=== PATIENT | female | born 1960 | race Caucasian/White ===

== ENCOUNTER 2018-10-31 17:16 | Inpatient (IN) ==
[2018-10-31 19:21] LABS: Basophils # 0.1 K/mcL (0.0-0.2); Basophils % 0.5 %; Eosinophils # 0.1 K/mcL (0.0-0.6); Eosinophils % 0.5 %; Hematocrit 43.4 % (35.3-44.9); Hemoglobin 13.7 g/dL (11.5-15.4); Immature Granulocytes % 3.4 % (0-4); Lymphocytes # 1.9 K/mcL (0.6-4.6); Lymphocytes % 11.3 %; Mean Corpuscular HGB Conc 31.6 g/dL (31.6-35.5); Mean Corpuscular Hemoglobin 29.5 pg (28.0-33.3); Mean Corpuscular Volume 93.5 fL (83.0-100.0); Mean Platelet Volume 10.3 fL (9.4-12.4); Monocytes # 1.4 K/mcL (0.0-1.3); Neutrophils # 13.1 K/mcL (1.6-8.9); Platelet Count 373 K/mcL (140-400); Red Blood Count 4.64 M/mcL (3.82-4.97); Red Cell Distribution Width 16.1 % (11.5-14.5); Segmented Neutrophils % 76.3 %; White Blood Count 17.1 K/mcL (4.3-11.1)
[2018-10-31] MEDS ORDERED: 0.9 % Sodium Chloride 1,000 ML IVC ONE (19:37)
[2018-10-31 19:40] LABS: Albumin 3.6 g/dL (3.5-5.7); Bilirubin,Direct 0.3 mg/dL (0.0-0.2); Bilirubin,Indirect 0.5 mg/dL (0.0-1.2); Bilirubin,Total 0.8 mg/dL (0.3-1.0); Globulin 3.5 g/dL (2.4-3.5); Potassium 4.2 mEq/L (3.5-5.1); Total Protein 7.1 g/dL (6.4-8.9)
[2018-10-31 19:42] LABS: Bilirubin,Urine Moderate (Negative); Blood,Urine Negative (Negative); Clarity,Urine Cloudy (Clear); Color,Urine Dark Yellow (Yellow); Glucose,Urine (UA) Normal (Normal); Ketones,Urine Trace mg/dL (Negative); Leukocyte Esterase,Urine Trace (Negative); Nitrite,Urine Negative (Negative); PH,Urine 5.5 pH Units (5.0-8.0); Protein,Urine 30 mg/dL (Neg-Trace); Specific Gravity,Urine 1.023 (1.010-1.025); Urobilinogen,Urine Normal (Normal)
[2018-10-31 19:48] LABS: Bacteria,Urine Few per hpf (None-Few); Hyaline Casts,Urine Few per lpf (None-Few); RBC,Urine 0-3 per hpf (0-3); Squamous Epithelial Cell,Urine Many per lpf (None-Few); WBC,Urine 15-30 per hpf (0-3)
[2018-10-31 20:01] LABS: Yeast,Urine Few per hpf (None Seen)
[2018-10-31] MEDS ORDERED: MetroNIDAZOLE 500 MG/100 ML 500 MG/100 ML BAG IVPB ONE (20:30)
[2018-10-31] MEDS ORDERED: Acetaminophen 325 MG TABLET PO PRN (23:34)
[2018-10-31] MEDS ORDERED: Naloxone 0.4 MG/ML INJ IVP PRN (23:34)
[2018-10-31] MEDS ORDERED: 0.9 % Sodium Chloride 1,000 ML IVC SCH (23:45)
[2018-11-01 00:32] LABS: INR 1.3; Prothrombin Time 14.9 Seconds (9.4-12.1)
[2018-11-01 00:42] LABS: Alanine Aminotransferase 139 Units/L (7-52); Albumin 3.2 g/dL (3.5-5.7); Albumin/Globulin Ratio 1.1 (1.1-2.2); Alkaline Phosphatase 167 Units/L (34-104); Aspartate Amino Transferase 54 Units/L (13-39); BUN/Creatinine Ratio 20 (6-26); Bilirubin,Total 0.7 mg/dL (0.3-1.0); Blood Urea Nitrogen 19 mg/dL (6-20); Carbon Dioxide 20 mEq/L (23-29); Chloride 107 mEq/L (98-107); Chol/HDL Ratio 8.3 (0-4.9); Cholesterol 158 mg/dL (< 200); Glucose 108 mg/dL (70-105); HDL Cholesterol 19 mg/dL (40-59); LDL Cholesterol,Calculated 109 mg/dL (0-99); Magnesium 1.8 mg/dL (1.6-2.6); Osmolality,Calculated 289 (280-300); Phosphorous 2.6 mg/dL (2.7-4.5); Potassium 3.7 mEq/L (3.5-5.1); Sodium 138 mEq/L (136-145); Total Protein 6.2 g/dL (6.4-8.9); Triglycerides 151 mg/dL (< 150); eGFR For African Americans > 60 (> 60); eGFR For Non-African Americans > 60 (> 60)
[2018-11-01 00:45] LABS: Basophils # 0.1 K/mcL (0.0-0.2); Basophils % 0.4 %; Eosinophils # 0.1 K/mcL (0.0-0.6); Eosinophils % 0.7 %; Hematocrit 38.7 % (35.3-44.9); Hemoglobin 12.2 g/dL (11.5-15.4); Immature Granulocytes % 3.4 % (0-4); Lymphocytes # 2.2 K/mcL (0.6-4.6); Lymphocytes % 15.5 %; Mean Corpuscular HGB Conc 31.5 g/dL (31.6-35.5); Mean Corpuscular Hemoglobin 29.8 pg (28.0-33.3); Mean Corpuscular Volume 94.4 fL (83.0-100.0); Mean Platelet Volume 10.2 fL (9.4-12.4); Monocytes % 7.1 %; Neutrophils # 10.2 K/mcL (1.6-8.9); Platelet Count 347 K/mcL (140-400); Segmented Neutrophils % 72.9 %
[2018-11-01 06:40] LABS: Troponin I < 0.03 ng/mL (< 0.04)
[2018-11-01] MEDS: predniSONE 20 MG TABLET PO SCH (08:21)
[2018-11-01] MEDS: MetroNIDAZOLE 500 MG/100 ML 500 MG/100 ML BAG IVPB SCH ×2 (08:29→15:14)
[2018-11-01 13:36] LABS: Hepatitis B Surface Antigen Nonreactive (Nonreactive)
[2018-11-01 14:05] LABS: Hepatitis B Core IgM Nonreactive (Nonreactive); Hepatitis C Virus Antibody Nonreactive (Nonreactive)
[2018-11-01 14:07] LABS: Hepatitis A Antibody IgM Nonreactive (Nonreactive)
[2018-11-01] MEDS ORDERED: SODIUM CHLORIDE/NAHCO3/KCL/PEG 4,000 ML SOLN.RECON PO ONE (21:09)
[2018-11-01] MEDS: Famotidine 20 MG TABLET PO SCH (22:12)
[2018-11-02] MEDS: MetroNIDAZOLE 500 MG/100 ML 500 MG/100 ML BAG IVPB SCH ×3 (00:02→16:31)
[2018-11-02] MEDS ORDERED: Lidocaine -MPF 2% 2 ML VIAL ONE (07:34)
[2018-11-02] MEDS ORDERED: Propofol 500 MG/50 ML INFUS..BTL ONE (07:34)
[2018-11-02] MEDS: predniSONE 20 MG TABLET PO SCH (09:53)
[2018-11-02] MEDS: Famotidine 20 MG TABLET PO SCH (09:53)
[2018-11-02] MEDS ORDERED: Barium Sulfate (Liquid Polibar Plus) 1 BOTTLE ORAL.SUSP RC ONE (11:42)
[2018-11-03] MEDS: MetroNIDAZOLE 500 MG/100 ML 500 MG/100 ML BAG IVPB SCH ×4 (01:20→18:40)
[2018-11-03 05:12] LABS: Basophils % 0.3 %; Eosinophils # 0.1 K/mcL (0.0-0.6); Eosinophils % 0.6 %; Hemoglobin 11.5 g/dL (11.5-15.4); Immature Granulocytes % 2.2 % (0-4); Lymphocytes % 21.1 %; Mean Corpuscular HGB Conc 31.1 g/dL (31.6-35.5); Mean Corpuscular Volume 93.4 fL (83.0-100.0); Mean Platelet Volume 10.3 fL (9.4-12.4); Monocytes # 0.9 K/mcL (0.0-1.3); Monocytes % 9.1 %; Neutrophils # 6.2 K/mcL (1.6-8.9); Platelet Count 284 K/mcL (140-400); Red Blood Count 3.96 M/mcL (3.82-4.97); Red Cell Distribution Width 16.2 % (11.5-14.5); Segmented Neutrophils % 66.7 %; White Blood Count 9.3 K/mcL (4.3-11.1)
[2018-11-03 05:35] LABS: Alanine Aminotransferase 62 Units/L (7-52); Albumin 2.8 g/dL (3.5-5.7); Albumin/Globulin Ratio 0.9 (1.1-2.2); Alkaline Phosphatase 124 Units/L (34-104); Aspartate Amino Transferase 20 Units/L (13-39); BUN/Creatinine Ratio 14 (6-26); Bilirubin,Total 0.4 mg/dL (0.3-1.0); Blood Urea Nitrogen 11 mg/dL (6-20); Calcium 9.1 mg/dL (8.6-10.3); Carbon Dioxide 21 mEq/L (23-29); Chloride 107 mEq/L (98-107); Glucose 95 mg/dL (70-105); Osmolality,Calculated 289 (280-300); Potassium 3.6 mEq/L (3.5-5.1); Sodium 140 mEq/L (136-145); Total Protein 5.8 g/dL (6.4-8.9); eGFR For African Americans > 60 (> 60); eGFR For Non-African Americans > 60 (> 60)
[2018-11-03] MEDS: predniSONE 20 MG TABLET PO SCH (08:45)
[2018-11-03] MEDS: Famotidine 20 MG TABLET PO SCH (08:45)
[2018-11-03] MEDS ORDERED: *HR* Propofol 200 MG/20 ML VIAL IVP ONE (09:16)
[2018-11-03] MEDS ORDERED: *HR* Midazolam HCl 2 MG/2 ML VIAL ONE (09:16)
[2018-11-03] MEDS ORDERED: *HR* FentaNYL (PF) 100 MCG/2 ML VIAL ONE (09:16)
[2018-11-03] MEDS ORDERED: Dexamethasone 4 MG/ML VIAL ONE (09:17)
[2018-11-03] MEDS ORDERED: Lidocaine -MPF 2% 2 ML VIAL ONE (09:17)
[2018-11-03] MEDS ORDERED: Ondansetron 4 MG/2 ML VIAL ONE (09:17)
[2018-11-03] MEDS ORDERED: *HR* Rocuronium Bromide 50 MG/5 ML VIAL ONE (09:17)
[2018-11-03] MEDS ORDERED: Lidocaine HCL 4 ML Topical Solution (Laryng-O-Jet Kit Sterile Pak) TP ONE (09:18)
[2018-11-03] MEDS ORDERED: *HR* Remifentanil 2 MG VIAL IVP ONE (09:24)
[2018-11-03] MEDS ORDERED: CefOXitin 1,000 MG VIAL ONE (09:32)
[2018-11-03] MEDS ORDERED: *HR* OxyCODONE Immed Rel 5 MG TABLET PO PRN (09:42)
[2018-11-03] MEDS ORDERED: Ondansetron 4 MG/2 ML VIAL IVP ONE (09:42)
[2018-11-03] MEDS ORDERED: *HR* Succinylcholine 200 MG/10 ML VIAL IVP ONE (10:06)
[2018-11-03] MEDS ORDERED: EPHEDrine 50 MG/ML VIAL ONE (10:13)
[2018-11-03] MEDS ORDERED: *HR* HYDROMORPHONE 2 MG/ML VIAL ONE (10:39)
[2018-11-03] MEDS ORDERED: Neostigmine Methylsulfate 3 MG/3 ML SYRINGE ONE (11:36)
[2018-11-03] MEDS ORDERED: Acetaminophen IV 1,000 MG/100 ML INFUS..BTL ONE (11:46)
[2018-11-03] MEDS: *HR* HYDROmorphone (PF) 1 MG/ML SYRINGE IVP PRN ×5 (12:20→13:16)
[2018-11-03] MEDS ORDERED: Ringers Solution, Lactated 1,000 ML ONE (12:58)
[2018-11-03] MEDS: *HR* HYDROmorphone (PF) 1 MG/ML SYRINGE IVP SCH ×2 (13:36→17:33)
[2018-11-03] MEDS ORDERED: *HR* Metoprolol 5 MG/5 ML VIAL IVP PRN (17:29)
[2018-11-03] MEDS ORDERED: Ondansetron 4 MG/2 ML VIAL IVP PRN (17:29)
[2018-11-03] MEDS ORDERED: Morphine Sulfate 2 MG/ML SYRINGE IVP PRN (17:29)
[2018-11-03] MEDS: 0.9 % Sodium Chloride 1,000 ML IVC SCH (21:23)
[2018-11-04] MEDS: MetroNIDAZOLE 500 MG/100 ML 500 MG/100 ML BAG IVPB SCH ×3 (00:18→16:33)
[2018-11-04 08:11] LABS: Basophils % 0.2 %; Hematocrit 34.6 % (35.3-44.9); Immature Granulocytes % 1.6 % (0-4); Lymphocytes # 1.3 K/mcL (0.6-4.6); Lymphocytes % 7.7 %; Mean Corpuscular HGB Conc 31.8 g/dL (31.6-35.5); Mean Corpuscular Hemoglobin 29.6 pg (28.0-33.3); Monocytes % 5.8 %; Neutrophils # 14.2 K/mcL (1.6-8.9); Platelet Count 316 K/mcL (140-400); Red Blood Count 3.72 M/mcL (3.82-4.97); Red Cell Distribution Width 16.4 % (11.5-14.5); Segmented Neutrophils % 84.7 %; White Blood Count 16.8 K/mcL (4.3-11.1)
[2018-11-04] MEDS ORDERED: Morphine PCA 30 MG/ 30 ML 30 ML PCA.VIAL IVC PRN (09:48)
[2018-11-04] MEDS: 0.9 % Sodium Chloride 1,000 ML IVC SCH ×2 (09:50→16:33)
[2018-11-04] MEDS: Acetaminophen IV 1,000 MG/100 ML INFUS..BTL IVPB SCH ×2 (11:13→18:34)
[2018-11-04 11:24] LABS: Alanine Aminotransferase 40 Units/L (7-52); Albumin 2.6 g/dL (3.5-5.7); Alkaline Phosphatase 101 Units/L (34-104); Aspartate Amino Transferase 15 Units/L (13-39); BUN/Creatinine Ratio 17 (6-26); Bilirubin,Total 0.4 mg/dL (0.3-1.0); Blood Urea Nitrogen 15 mg/dL (6-20); Calcium 8.8 mg/dL (8.6-10.3); Carbon Dioxide 18 mEq/L (23-29); Chloride 110 mEq/L (98-107); Globulin 2.6 g/dL (2.4-3.5); Glucose 121 mg/dL (70-105); Osmolality,Calculated 288 (280-300); Potassium 4.4 mEq/L (3.5-5.1); Sodium 138 mEq/L (136-145); Total Protein 5.2 g/dL (6.4-8.9); eGFR For African Americans > 60 (> 60); eGFR For Non-African Americans > 60 (> 60)
[2018-11-04] MEDS: Pantoprazole 40 MG VIAL IVP SCH (11:30)
[2018-11-04] MEDS: Ketorolac 15 MG/ML VIAL IVP SCH ×2 (12:45→16:34)
[2018-11-04] MEDS: methylPREDNISolone 125 MG/2 ML VIAL IVP SCH (16:34)
[2018-11-05] MEDS: Ketorolac 15 MG/ML VIAL IVP SCH ×5 (00:01→23:47)
[2018-11-05] MEDS: MetroNIDAZOLE 500 MG/100 ML 500 MG/100 ML BAG IVPB SCH ×4 (00:21→23:46)
[2018-11-05] MEDS: 0.9 % Sodium Chloride 1,000 ML IVC SCH ×2 (04:31→16:12)
[2018-11-05] MEDS: methylPREDNISolone 125 MG/2 ML VIAL IVP SCH ×2 (05:01→18:50)
[2018-11-05] MEDS: Acetaminophen IV 1,000 MG/100 ML INFUS..BTL IVPB SCH ×5 (05:03→23:47)
[2018-11-05] MEDS: Pantoprazole 40 MG VIAL IVP SCH (09:55)
[2018-11-05 10:50] LABS: Basophils # 0.1 K/mcL (0.0-0.2); Basophils % 0.3 %; Eosinophils % 0.1 %; Hematocrit 32.3 % (35.3-44.9); Hemoglobin 10.2 g/dL (11.5-15.4); Immature Granulocytes % 3.7 % (0-4); Lymphocytes # 0.9 K/mcL (0.6-4.6); Lymphocytes % 4.6 %; Mean Corpuscular HGB Conc 31.6 g/dL (31.6-35.5); Mean Corpuscular Hemoglobin 29.8 pg (28.0-33.3); Mean Corpuscular Volume 94.4 fL (83.0-100.0); Mean Platelet Volume 10.1 fL (9.4-12.4); Monocytes # 0.7 K/mcL (0.0-1.3); Monocytes % 3.7 %; Neutrophils # 17.1 K/mcL (1.6-8.9); Nucleated Red Blood Cells 0.2 /100 WBC (0); Platelet Count 263 K/mcL (140-400); Red Blood Count 3.42 M/mcL (3.82-4.97); Segmented Neutrophils % 87.6 %; White Blood Count 19.6 K/mcL (4.3-11.1)
[2018-11-05 12:08] LABS: Alanine Aminotransferase 29 Units/L (7-52); Albumin 2.5 g/dL (3.5-5.7); Alkaline Phosphatase 87 Units/L (34-104); Aspartate Amino Transferase 16 Units/L (13-39); BUN/Creatinine Ratio 22 (6-26); Bilirubin,Total 0.5 mg/dL (0.3-1.0); Blood Urea Nitrogen 23 mg/dL (6-20); Calcium 8.6 mg/dL (8.6-10.3); Carbon Dioxide 16 mEq/L (23-29); Chloride 111 mEq/L (98-107); Globulin 2.6 g/dL (2.4-3.5); Glucose 116 mg/dL (70-105); Osmolality,Calculated 289 (280-300); Potassium 4.9 mEq/L (3.5-5.1); Sodium 137 mEq/L (136-145); Total Protein 5.1 g/dL (6.4-8.9); eGFR For African Americans > 60 (> 60); eGFR For Non-African Americans 55 (> 60)
[2018-11-06] MEDS: 0.9 % Sodium Chloride 1,000 ML IVC SCH (00:28)
[2018-11-06] MEDS: Ketorolac 15 MG/ML VIAL IVP SCH ×3 (05:09→17:56)
[2018-11-06] MEDS: methylPREDNISolone 125 MG/2 ML VIAL IVP SCH ×2 (05:09→17:56)
[2018-11-06 06:30] LABS: Basophils % 0.1 %; Hematocrit 30.6 % (35.3-44.9); Hemoglobin 9.5 g/dL (11.5-15.4); Immature Granulocytes % 2.2 % (0-4); Lymphocytes # 1.2 K/mcL (0.6-4.6); Lymphocytes % 6.8 %; Mean Corpuscular Hemoglobin 29.1 pg (28.0-33.3); Mean Corpuscular Volume 93.9 fL (83.0-100.0); Mean Platelet Volume 9.8 fL (9.4-12.4); Monocytes # 0.6 K/mcL (0.0-1.3); Monocytes % 3.5 %; Neutrophils # 15.1 K/mcL (1.6-8.9); Platelet Count 293 K/mcL (140-400); Red Blood Count 3.26 M/mcL (3.82-4.97); Red Cell Distribution Width 16.7 % (11.5-14.5); Segmented Neutrophils % 87.4 %; White Blood Count 17.3 K/mcL (4.3-11.1)
[2018-11-06 06:49] LABS: Calcium 8.5 mg/dL (8.6-10.3); Potassium 4.1 mEq/L (3.5-5.1)
[2018-11-06] MEDS: Acetaminophen IV 1,000 MG/100 ML INFUS..BTL IVPB SCH ×3 (06:50→17:56)
[2018-11-06] MEDS ORDERED: *HR* OxyCODONE/APAP 5/325 TABLET PO PRN (08:08)
[2018-11-06] MEDS: MetroNIDAZOLE 500 MG/100 ML 500 MG/100 ML BAG IVPB SCH ×2 (08:12→15:52)
[2018-11-06] MEDS: Pantoprazole 40 MG VIAL IVP SCH (08:13)
[2018-11-07] MEDS: Ketorolac 15 MG/ML VIAL IVP SCH ×2 (00:15→05:28)
[2018-11-07] MEDS: Acetaminophen IV 1,000 MG/100 ML INFUS..BTL IVPB SCH ×2 (00:16→05:26)
[2018-11-07] MEDS: MetroNIDAZOLE 500 MG/100 ML 500 MG/100 ML BAG IVPB SCH ×2 (00:16→08:19)
[2018-11-07] MEDS: methylPREDNISolone 125 MG/2 ML VIAL IVP SCH (05:26)
[2018-11-07 06:32] LABS: Basophils % 0.3 %; Hematocrit 32.2 % (35.3-44.9); Hemoglobin 10.1 g/dL (11.5-15.4); Lymphocytes # 1.3 K/mcL (0.6-4.6); Lymphocytes % 11.1 %; Mean Corpuscular HGB Conc 31.4 g/dL (31.6-35.5); Mean Corpuscular Hemoglobin 28.7 pg (28.0-33.3); Mean Corpuscular Volume 91.5 fL (83.0-100.0); Mean Platelet Volume 9.5 fL (9.4-12.4); Monocytes # 0.6 K/mcL (0.0-1.3); Monocytes % 5.3 %; Neutrophils # 9.2 K/mcL (1.6-8.9); Platelet Count 323 K/mcL (140-400); Red Blood Count 3.52 M/mcL (3.82-4.97); Red Cell Distribution Width 16.8 % (11.5-14.5); Segmented Neutrophils % 79.3 %; White Blood Count 11.6 K/mcL (4.3-11.1)
[2018-11-07 06:54] LABS: BUN/Creatinine Ratio 31 (6-26); Blood Urea Nitrogen 31 mg/dL (6-20); Calcium 8.3 mg/dL (8.6-10.3); Carbon Dioxide 19 mEq/L (23-29); Chloride 108 mEq/L (98-107); Glucose 183 mg/dL (70-105); Osmolality,Calculated 291 (280-300); Potassium 4.3 mEq/L (3.5-5.1); Sodium 135 mEq/L (136-145); eGFR For African Americans > 60 (> 60); eGFR For Non-African Americans 57 (> 60)
[2018-11-07] MEDS: Pantoprazole 40 MG VIAL IVP SCH (08:19)
[2018-11-07] MEDS ORDERED: Acetaminophen 325 MG TABLET PO PRN (10:18)
[2018-11-07] MEDS: Ibuprofen 800 MG TABLET PO SCH ×3 (12:37→20:30)
[2018-11-07] MEDS: Lisinopril 20 MG TABLET PO SCH (12:37)
[2018-11-07] MEDS: metroNIDAZOLE 500 MG TABLET PO SCH ×2 (16:12→20:28)
[2018-11-07] MEDS: predniSONE 20 MG TABLET PO SCH (16:12)
[2018-11-08 06:02] LABS: Basophils % 0.2 %; Hematocrit 32.6 % (35.3-44.9); Hemoglobin 10.6 g/dL (11.5-15.4); Immature Granulocytes % 3.9 % (0-4); Lymphocytes # 1.4 K/mcL (0.6-4.6); Lymphocytes % 11.3 %; Mean Corpuscular HGB Conc 32.5 g/dL (31.6-35.5); Mean Corpuscular Hemoglobin 29.9 pg (28.0-33.3); Mean Corpuscular Volume 91.8 fL (83.0-100.0); Mean Platelet Volume 9.5 fL (9.4-12.4); Monocytes # 0.7 K/mcL (0.0-1.3); Monocytes % 6.1 %; Neutrophils # 9.4 K/mcL (1.6-8.9); Platelet Count 328 K/mcL (140-400); Red Blood Count 3.55 M/mcL (3.82-4.97); Red Cell Distribution Width 16.5 % (11.5-14.5); Segmented Neutrophils % 78.5 %
[2018-11-08 06:25] LABS: BUN/Creatinine Ratio 37 (6-26); Blood Urea Nitrogen 29 mg/dL (6-20); Calcium 8.4 mg/dL (8.6-10.3); Carbon Dioxide 23 mEq/L (23-29); Chloride 106 mEq/L (98-107); Glucose 154 mg/dL (70-105); Osmolality,Calculated 293 (280-300); Potassium 3.7 mEq/L (3.5-5.1); Sodium 137 mEq/L (136-145); eGFR For African Americans > 60 (> 60); eGFR For Non-African Americans > 60 (> 60)
[2018-11-08] MEDS: Pantoprazole 40 MG VIAL IVP SCH (08:50)
[2018-11-08] MEDS: predniSONE 20 MG TABLET PO SCH ×2 (08:51→15:15)
[2018-11-08] MEDS: metroNIDAZOLE 500 MG TABLET PO SCH ×3 (08:51→19:56)
[2018-11-08] MEDS: Lisinopril 20 MG TABLET PO SCH (08:51)
[2018-11-08] MEDS: Ibuprofen 800 MG TABLET PO SCH ×3 (08:52→19:56)
[2018-11-09 05:46] LABS: Basophils % 0.3 %; Hematocrit 33.9 % (35.3-44.9); Hemoglobin 10.9 g/dL (11.5-15.4); Immature Granulocytes % 4.8 % (0-4); Lymphocytes # 1.7 K/mcL (0.6-4.6); Lymphocytes % 13.5 %; Mean Corpuscular HGB Conc 32.2 g/dL (31.6-35.5); Mean Corpuscular Hemoglobin 28.9 pg (28.0-33.3); Mean Corpuscular Volume 89.9 fL (83.0-100.0); Mean Platelet Volume 9.4 fL (9.4-12.4); Monocytes # 0.9 K/mcL (0.0-1.3); Neutrophils # 9.5 K/mcL (1.6-8.9); Platelet Count 341 K/mcL (140-400); Red Blood Count 3.77 M/mcL (3.82-4.97); Red Cell Distribution Width 16.4 % (11.5-14.5); Segmented Neutrophils % 74.4 %; White Blood Count 12.8 K/mcL (4.3-11.1)
[2018-11-09 06:10] LABS: BUN/Creatinine Ratio 33 (6-26); Blood Urea Nitrogen 26 mg/dL (6-20); Calcium 8.4 mg/dL (8.6-10.3); Carbon Dioxide 25 mEq/L (23-29); Chloride 105 mEq/L (98-107); Glucose 134 mg/dL (70-105); Osmolality,Calculated 289 (280-300); Potassium 3.7 mEq/L (3.5-5.1); Sodium 136 mEq/L (136-145); eGFR For African Americans > 60 (> 60); eGFR For Non-African Americans > 60 (> 60)
[2018-11-09] MEDS: metroNIDAZOLE 500 MG TABLET PO SCH ×3 (09:12→20:02)
[2018-11-09] MEDS: predniSONE 20 MG TABLET PO SCH (09:12)
[2018-11-09] MEDS: Ibuprofen 800 MG TABLET PO SCH ×4 (09:12→17:05)
[2018-11-09] MEDS: Lisinopril 20 MG TABLET PO SCH (09:13)
[2018-11-10] MEDS: Lisinopril 20 MG TABLET PO SCH (08:29)
[2018-11-10] MEDS ORDERED: predniSONE 20 MG TABLET PO SCH (09:00)
[2018-11-10 17:09] VITALS: BP 164/81
== END 2018-11-10 18:00 | DRG 330 ==
LOC: 3ANU 17:16 → EMEROOARM 17:16 → SUATTDRO 20:57 → 3ANU 21:10 → SUATTDRO 11-03 11:29
PROVIDERS: ADMIT Internal Medicine; ATTEND Internal Medicine

== ENCOUNTER 2019-02-06 09:33 | Observation (INO) ==
[2019-02-06 12:12] LABS: Basophils # 0.1 K/mcL (0.0-0.2); Basophils % 0.6 %; Eosinophils # 1.2 K/mcL (0.0-0.6); Eosinophils % 11.5 %; Hematocrit 34.6 % (35.3-44.9); Hemoglobin 10.6 g/dL (11.5-15.4); Immature Granulocytes % 0.7 % (0-4); Lymphocytes # 1.3 K/mcL (0.6-4.6); Mean Corpuscular HGB Conc 30.6 g/dL (31.6-35.5); Mean Corpuscular Hemoglobin 28.6 pg (28.0-33.3); Mean Corpuscular Volume 93.5 fL (83.0-100.0); Mean Platelet Volume 10.1 fL (9.4-12.4); Monocytes # 0.6 K/mcL (0.0-1.3); Monocytes % 5.9 %; Neutrophils # 6.8 K/mcL (1.6-8.9); Platelet Count 235 K/mcL (140-400); Red Cell Distribution Width 17.6 % (11.5-14.5); Segmented Neutrophils % 68.3 %
[2019-02-06 12:27] LABS: Prothrombin Time 10.9 Seconds (9.4-12.1)
[2019-02-06 12:30] LABS: Activated Partial Thrombo Time 35.2 Seconds (26.0-36.0)
[2019-02-06 12:39] LABS: Calcium 10.2 mg/dL (8.6-10.3); Potassium 5.5 mEq/L (3.5-5.1)
[2019-02-06] MEDS ORDERED: *HR* Heparin 5,000 UNIT/ML VIAL IVP PRN ×2 (13:37)
[2019-02-06] MEDS ORDERED: *HR* Heparin 5,000 UNIT/ML VIAL IVP ONE (13:37)
[2019-02-06] MEDS ORDERED: Heparin 25,000 UNIT/250 ML D5W 25,000 UNIT/250 ML IV.SOLN IVC SCH (13:45)
[2019-02-06] MEDS ORDERED: 0.9 % Sodium Chloride 1,000 ML IVC ONE (14:06)
[2019-02-06] MEDS ORDERED: Ondansetron 4 MG/2 ML VIAL IVP PRN (14:14)
[2019-02-06] MEDS ORDERED: Naloxone 0.4 MG/ML INJ IVP PRN (14:14)
[2019-02-06] MEDS: 0.9 % Sodium Chloride 1,000 ML IVC SCH (18:51)
[2019-02-07] MEDS: 0.9 % Sodium Chloride 1,000 ML IVC SCH (00:39)
[2019-02-07 03:54] LABS: Basophils % 0.5 %; Eosinophils # 1.2 K/mcL (0.0-0.6); Eosinophils % 13.7 %; Hematocrit 31.1 % (35.3-44.9); Hemoglobin 9.9 g/dL (11.5-15.4); Immature Granulocytes % 0.6 % (0-4); Lymphocytes # 1.9 K/mcL (0.6-4.6); Lymphocytes % 22.2 %; Mean Corpuscular HGB Conc 31.8 g/dL (31.6-35.5); Mean Corpuscular Hemoglobin 28.7 pg (28.0-33.3); Mean Corpuscular Volume 90.1 fL (83.0-100.0); Monocytes # 0.5 K/mcL (0.0-1.3); Monocytes % 5.7 %; Neutrophils # 4.9 K/mcL (1.6-8.9); Platelet Count 223 K/mcL (140-400); Red Blood Count 3.45 M/mcL (3.82-4.97); Red Cell Distribution Width 17.6 % (11.5-14.5); Segmented Neutrophils % 57.3 %; White Blood Count 8.5 K/mcL (4.3-11.1)
[2019-02-07 04:10] LABS: BUN/Creatinine Ratio 44 (6-26); Blood Urea Nitrogen 44 mg/dL (6-20); Calcium 8.8 mg/dL (8.6-10.3); Carbon Dioxide 17 mEq/L (23-29); Chloride 118 mEq/L (98-107); Glucose 90 mg/dL (70-105); Osmolality,Calculated 301 (280-300); Phosphorous 3.2 mg/dL (2.7-4.5); Potassium 4.3 mEq/L (3.5-5.1); Sodium 140 mEq/L (136-145); eGFR For African Americans > 60 (> 60); eGFR For Non-African Americans 57 (> 60)
[2019-02-07] MEDS ORDERED: Cholecalciferol (D-3) 1,000 UNIT (25MCG) TABLET PO SCH (09:00)
[2019-02-07] MEDS ORDERED: Apixaban 5 MG TABLET PO SCH (10:30)
[2019-02-07 11:04] VITALS: BP 146/72
== END 2019-02-07 14:35 | disposition home or self-care (01) ==
LOC: 3ANU 09:33 → EMEROOARM 09:33 → SUATTDRO 21:26 → 3ANU 22:27
PROVIDERS: ADMIT Internal Medicine; ATTEND Internal Medicine

== ENCOUNTER 2019-09-19 11:10 | Inpatient (IN) ==
[~2019-09-19 11:10] MED LIST: Famotidine 20 MG/2 ML VIAL IVP ONE
[2019-09-19] MEDS ORDERED: cefOXitin 2,000 MG in Water for inj. (sterile) 20 ML IVP ONE (11:44)
[2019-09-19] MEDS ORDERED: *HR* Midazolam HCl 2 MG/2 ML VIAL ONE (12:15)
[2019-09-19] MEDS ORDERED: *HR* Propofol 200 MG/20 ML VIAL IVP ONE (12:15)
[2019-09-19] MEDS ORDERED: *HR* FentaNYL (PF) 100 MCG/2 ML VIAL ONE ×4 (12:15→15:33)
[2019-09-19] MEDS ORDERED: Lidocaine HCL 4 ML Topical Solution (Laryng-O-Jet Kit Sterile Pak) TP ONE (12:19)
[2019-09-19] MEDS ORDERED: Lidocaine -MPF 2% 2 ML VIAL ONE (12:19)
[2019-09-19] MEDS ORDERED: *HR* Rocuronium Bromide 50 MG/5 ML VIAL ONE ×2 (12:19→14:07)
[2019-09-19] MEDS ORDERED: Ondansetron 4 MG/2 ML VIAL IVP PRN ×2 (12:26→19:42)
[2019-09-19] MEDS ORDERED: *HR* Promethazine 25 MG/ML VIAL IVP PRN (12:26)
[2019-09-19] MEDS ORDERED: *HR* HYDROmorphone (PF) 1 MG/ML SYRINGE IVP PRN (12:26)
[2019-09-19] MEDS ORDERED: *HR* Labetalol 20 MG/4 ML SYRINGE IVP PRN (12:26)
[2019-09-19] MEDS: Ringers Solution, Lactated 1,000 ML IVC SCH ×2 (12:44→14:12)
[2019-09-19] MEDS ORDERED: Dexamethasone 4 MG/ML VIAL ONE (14:09)
[2019-09-19] MEDS ORDERED: Ondansetron 4 MG/2 ML VIAL ONE (14:44)
[2019-09-19] MEDS ORDERED: *HR* Labetalol 20 MG/4 ML SYRINGE IVP ONE (15:42)
[2019-09-19] MEDS ORDERED: *HR* PHENYLEPHRINE 1,000 MCG/10 ML SYRINGE IVP ONE (16:28)
[2019-09-19] MEDS ORDERED: *HR* HYDROMORPHONE 2 MG/ML VIAL ONE ×2 (17:54→18:20)
[2019-09-19] MEDS ORDERED: Naloxone 0.4 MG/ML INJ IVP PRN (19:42)
[2019-09-19] MEDS: lisinopriL 20 MG TABLET PO SCH (21:26)
[2019-09-19] MEDS: atenoloL 50 MG TABLET PO SCH (21:27)
[2019-09-19] MEDS: 0.9 % Sodium Chloride 1,000 ML IVC SCH (21:27)
[2019-09-20] MEDS: Ketorolac 30 MG/ML VIAL IVP SCH ×4 (00:52→17:36)
[2019-09-20] MEDS: Acetaminophen IV 1,000 MG/100 ML INFUS..BTL IVPB SCH ×4 (00:52→17:37)
[2019-09-20] MEDS: cefOXitin 1,000 MG in 0.9 % Sodium Chloride Mini Bag 100 ML IVPB SCH ×3 (00:53→17:39)
[2019-09-20 06:39] LABS: Basophils % 0.1 %; Hematocrit 34.7 % (35.3-44.9); Immature Granulocytes % 0.6 % (0-4); Lymphocytes # 0.8 K/mcL (0.6-4.6); Lymphocytes % 6.1 %; Mean Corpuscular HGB Conc 31.7 g/dL (31.6-35.5); Mean Corpuscular Hemoglobin 27.8 pg (28.0-33.3); Mean Corpuscular Volume 87.6 fL (83.0-100.0); Mean Platelet Volume 9.5 fL (9.4-12.4); Monocytes # 0.6 K/mcL (0.0-1.3); Monocytes % 4.9 %; Neutrophils # 11.1 K/mcL (1.6-8.9); Platelet Count 215 K/mcL (140-400); Red Blood Count 3.96 M/mcL (3.82-4.97); Red Cell Distribution Width 16.1 % (11.5-14.5); Segmented Neutrophils % 88.3 %; White Blood Count 12.6 K/mcL (4.3-11.1)
[2019-09-20 06:58] LABS: Calcium 8.8 mg/dL (8.6-10.3); Potassium 4.7 mEq/L (3.5-5.1)
[2019-09-20] MEDS: Pantoprazole 40 MG VIAL IVP SCH (08:48)
[2019-09-20] MEDS: lisinopriL 20 MG TABLET PO SCH ×2 (08:48→21:33)
[2019-09-20] MEDS: 0.9 % Sodium Chloride 1,000 ML IVC SCH (08:49)
[2019-09-20] MEDS: *HR* Heparin 5,000 UNIT/ML VIAL SQ SCH ×2 (17:38→21:33)
[2019-09-20] MEDS: atenoloL 50 MG TABLET PO SCH (21:33)
[2019-09-21] MEDS: Ketorolac 30 MG/ML VIAL IVP SCH ×2 (00:09→05:40)
[2019-09-21] MEDS: 0.9 % Sodium Chloride 1,000 ML IVC SCH (00:10)
[2019-09-21] MEDS: Acetaminophen IV 1,000 MG/100 ML INFUS..BTL IVPB SCH ×2 (00:46→05:38)
[2019-09-21] MEDS: *HR* Heparin 5,000 UNIT/ML VIAL SQ SCH ×2 (05:40→13:06)
[2019-09-21] MEDS ORDERED: Acetaminophen 325 MG TABLET PO PRN (08:19)
[2019-09-21] MEDS ORDERED: *HR* OxyCODONE/APAP 5/325 TABLET PO PRN (08:19)
[2019-09-21] MEDS ORDERED: Furosemide 20 MG TABLET PO SCH (09:00)
[2019-09-21] MEDS ORDERED: Ibuprofen 800 MG TABLET PO SCH (09:00)
[2019-09-21] MEDS: Pantoprazole 40 MG VIAL IVP SCH (10:02)
[2019-09-21] MEDS: lisinopriL 20 MG TABLET PO SCH (10:03)
[2019-09-21 11:40] VITALS: BP 178/98
== END 2019-09-21 15:17 | disposition home or self-care (01) | DRG 330 ==
LOC: SAMDAY 11:10 → 3ANU 19:36
PROVIDERS: ADMIT Surgery; ATTEND Surgery

== ENCOUNTER 2019-11-10 18:14 | Inpatient (IN) ==
[2019-11-10] MEDS ORDERED: Isovue-370 500 ML BOTTLE IVP ONE (18:43)
[2019-11-10 18:51] LABS: Bacteria,Urine Many per hpf (None-Few); Bilirubin,Urine Small (Negative); Blood,Urine Small (Negative); Clarity,Urine Turbid (Clear); Color,Urine Yellow (Yellow); Glucose,Urine (UA) Normal (Normal); Hyaline Casts,Urine Many per lpf (None Seen); Ketones,Urine Negative (Negative); Leukocyte Esterase,Urine Large (Negative); Mucus,Urine Few per lpf (None-Few); Nitrite,Urine Negative (Negative); Protein,Urine 30 mg/dL (Neg-Trace); Specific Gravity,Urine 1.024 (1.010-1.025); Squamous Epithelial Cell,Urine Few per hpf (None-Few); Urobilinogen,Urine Normal (Normal); WBC,Urine TNTC per hpf (0-3)
[2019-11-10] MEDS ORDERED: 0.9 % Sodium Chloride 1,000 ML ONE (18:55)
[2019-11-10] MEDS: 0.9 % Sodium Chloride 1,000 ML IVC SCH ×2 (18:57→19:31)
[2019-11-10 19:08] LABS: Red Cell Distribution Width 19.7 % (11.5-14.5)
[2019-11-10 19:09] LABS: Hematocrit 31.3 % (35.3-44.9); Hemoglobin 9.6 g/dL (11.5-15.4); Mean Corpuscular HGB Conc 30.7 g/dL (31.6-35.5); Mean Corpuscular Volume 88.2 fL (83.0-100.0); Platelet Count 284 K/mcL (140-400); Red Blood Count 3.55 M/mcL (3.82-4.97); White Blood Count 17.5 K/mcL (4.3-11.1)
[2019-11-10 19:14] LABS: VBG HCO3 8 mEq/L (21-27); VBG PCO2 22 mmHg (41-51); VBG PH 7.17 pH Units (7.32-7.42); VBG PO2 165 mmHg (25-50)
[2019-11-10 19:41] LABS: Alanine Aminotransferase 64 Units/L (7-52); Albumin 3.5 g/dL (3.5-5.7); Albumin/Globulin Ratio 0.8 (1.1-2.2); Alkaline Phosphatase 135 Units/L (34-104); Aspartate Amino Transferase 21 Units/L (13-39); Bilirubin,Direct 0.2 mg/dL (0.0-0.2); Bilirubin,Indirect 0.1 mg/dL (0.0-1.0); Bilirubin,Total 0.3 mg/dL (0.3-1.0); Blood Urea Nitrogen > 130 mg/dL (8-23); Calcium 9.9 mg/dL (8.6-10.3); Carbon Dioxide 8 mEq/L (23-29); Chloride 112 mEq/L (98-107); Globulin 4.3 g/dL (2.4-3.5); Glucose 116 mg/dL (70-105); Potassium 7.7 mEq/L (3.5-5.1); Sodium 136 mEq/L (136-145); Total Protein 7.8 g/dL (6.4-8.9); Troponin I 0.03 ng/mL (< 0.04); eGFR For African Americans 9 (> 60); eGFR For Non-African Americans 7 (> 60)
[2019-11-10] MEDS ORDERED: Sodium Bicarbonate 50 MEQ/50 ML VIAL IVP ONE (19:43)
[2019-11-10] MEDS ORDERED: Insulin Human Regular 10 UNIT in 0.9 % Sodium Chloride 10 ML IV ONE (19:43)
[2019-11-10] MEDS ORDERED: *HR* Dextrose 50 % in Water (Vial) 50 ML VIAL IVP ONE (19:43)
[2019-11-10] MEDS ORDERED: Calcium Gluconate 1gm/50mL 1 GM/50 ML BAG IVPB ONE (19:49)
[2019-11-10] MEDS ORDERED: Calcium Gluconate 1gm/50mL BAG IVPB ONE (19:50)
[2019-11-10] MEDS ORDERED: *HR* Dextrose 50 % in Water (Vial) 50 ML VIAL ONE (19:50)
[2019-11-10] MEDS ORDERED: Piperacillin/Tazobactam 3.375 GM in 0.9 % Sodium Chloride Mini Bag 100 ML IVPB ONE (19:50)
[2019-11-10] MEDS ORDERED: 0.9 % Sodium Chloride 1,000 ML IVC ONE (20:13)
[2019-11-10 20:23] LABS: Adenovirus Not Detected (Not Detect); Bordetella Pertussis Not Detected (Not Detect); Chlamydophila pneumoniae Not Detected (Not Detect); Coronavirus 229E Not Detected (Not Detect); Coronavirus HKU1 Not Detected (Not Detect); Coronavirus NL63 Not Detected (Not Detect); Coronavirus OC43 Not Detected (Not Detect); Human Metapneumovirus Not Detected (Not Detect); Human Rhinovirus/Enterovirus Not Detected (Not Detect); Influenza A Subtype 2009 H1 Not Detected (Not Detect); Influenza B Not Detected (Not Detect); Mycoplasma pneumoniae Not Detected (Not Detect); Parainfluenza Virus 1 Not Detected (Not Detect); Parainfluenza Virus 2 Not Detected (Not Detect); Parainfluenza Virus 3 Not Detected (Not Detect); Parainfluenza Virus 4 Not Detected (Not Detect); Respiratory Syncytial Virus Not Detected (Not Detect); SARS-CoV-2 Not Detected (Not Detect)
[2019-11-10 21:33] LABS: Blood Urea Nitrogen > 130 mg/dL (8-23); Calcium 8.3 mg/dL (8.6-10.3); Carbon Dioxide 9 mEq/L (23-29); Chloride 118 mEq/L (98-107); Glucose 151 mg/dL (70-105); Potassium 5.5 mEq/L (3.5-5.1); Sodium 140 mEq/L (136-145); eGFR For African Americans 10 (> 60); eGFR For Non-African Americans 8 (> 60)
[2019-11-10 22:19] LABS: C-Reactive Protein 162 mg/L (Less than 10); Magnesium 2.4 mg/dL (1.6-2.6)
[2019-11-10] MEDS ORDERED: Ringers Solution, Lactated 1,000 ML IVC SCH (22:30)
[2019-11-10] MEDS ORDERED: Heparin 25,000UNIT/250ML 1/2NS 25,000 UNIT/250 ML IV.SOLN IVC SCH (23:45)
[2019-11-10] MEDS ORDERED: *HR* Heparin 5,000 UNIT/ML VIAL IVP PRN ×2 (23:47)
[2019-11-11] MEDS ORDERED: *HR* Dextrose 50 % in Water (Vial) 50 ML VIAL IVP ONE (00:35)
[2019-11-11] MEDS ORDERED: Insulin Human Regular 10 UNIT in 0.9 % Sodium Chloride 10 ML IV ONE (00:35)
[2019-11-11 01:14] LABS: Basophils % 0.2 %; Lymphocytes % 12.8 %; Red Cell Distribution Width 19.9 % (11.5-14.5)
[2019-11-11 01:16] LABS: Eosinophils % 0.4 %; Hematocrit 26.9 % (35.3-44.9); Hemoglobin 7.7 g/dL (11.5-15.4); Lymphocytes # 1.4 K/mcL (0.6-4.6); Mean Corpuscular HGB Conc 28.6 g/dL (31.6-35.5); Mean Corpuscular Hemoglobin 25.9 pg (28.0-33.3); Mean Corpuscular Volume 90.6 fL (83.0-100.0); Mean Platelet Volume 9.6 fL (9.4-12.4); Monocytes # 0.9 K/mcL (0.0-1.3); Monocytes % 7.9 %; Neutrophils # 8.3 K/mcL (1.6-8.9); Nucleated Red Blood Cells 0.2 /100 WBC (0); Platelet Count 223 K/mcL (140-400); Red Blood Count 2.97 M/mcL (3.82-4.97); Segmented Neutrophils % 76.7 %; White Blood Count 10.8 K/mcL (4.3-11.1)
[2019-11-11 01:20] LABS: Heparin anti-factor XA UFH < 0.04 IU/mL (0.30-0.70)
[2019-11-11 01:21] LABS: INR 1.1; Prothrombin Time 12.6 Seconds (9.4-12.1)
[2019-11-11 01:39] LABS: Blood Urea Nitrogen > 130 mg/dL (8-23); Calcium 8.5 mg/dL (8.6-10.3); Carbon Dioxide 8 mEq/L (23-29); Chloride 120 mEq/L (98-107); Glucose 87 mg/dL (70-105); Potassium 5.8 mEq/L (3.5-5.1); Sodium 141 mEq/L (136-145); eGFR For African Americans 12 (> 60); eGFR For Non-African Americans 10 (> 60)
[2019-11-11 02:21] LABS: Platelet Estimate Normal (Normal)
[2019-11-11 06:39] LABS: Basophils % 0.1 %; Eosinophils # 0.1 K/mcL (0.0-0.6); Eosinophils % 0.5 %; Hematocrit 24.3 % (35.3-44.9); Hemoglobin 7.1 g/dL (11.5-15.4); Immature Granulocytes % 1.8 % (0-4); Lymphocytes # 1.7 K/mcL (0.6-4.6); Lymphocytes % 12.2 %; Mean Corpuscular HGB Conc 29.2 g/dL (31.6-35.5); Mean Corpuscular Hemoglobin 25.6 pg (28.0-33.3); Mean Corpuscular Volume 87.7 fL (83.0-100.0); Mean Platelet Volume 9.9 fL (9.4-12.4); Monocytes # 1.7 K/mcL (0.0-1.3); Monocytes % 12.5 %; Neutrophils # 10.1 K/mcL (1.6-8.9); Platelet Count 209 K/mcL (140-400); Red Blood Count 2.77 M/mcL (3.82-4.97); Red Cell Distribution Width 19.5 % (11.5-14.5); Segmented Neutrophils % 72.9 %; White Blood Count 13.9 K/mcL (4.3-11.1)
[2019-11-11 07:35] LABS: % Iron Saturation 42 % (15-50); Blood Urea Nitrogen > 130 mg/dL (8-23); Calcium 8.5 mg/dL (8.6-10.3); Carbon Dioxide 11 mEq/L (23-29); Chloride 121 mEq/L (98-107); Ferritin 392 ng/mL (10-120); Glucose 114 mg/dL (70-105); Iron 82 mcg/dL (50-170); Magnesium 2.3 mg/dL (1.6-2.6); Phosphorous 4.6 mg/dL (2.7-4.5); Sodium 143 mEq/L (136-145); Transferrin 140 mg/dL (203-362); eGFR For African Americans 15 (> 60); eGFR For Non-African Americans 12 (> 60)
[2019-11-11] MEDS ORDERED: Sodium Bicarbonate 150 MEQ in D5% in Water 1,000 ML IVC SCH (09:00)
[2019-11-11] MEDS: Cholecalciferol (D-3) 1,000 UNIT (25MCG) TABLET PO SCH (09:20)
[2019-11-11] MEDS: *HR* OxyCODONE Immed Rel 5 MG TABLET PO PRN ×3 (09:36→18:44)
[2019-11-11] MEDS: Piperacillin/Tazobactam 3.375 GM in 0.9 % Sodium Chloride Mini Bag 100 ML IVPB SCH ×2 (09:52→20:16)
[2019-11-11] MEDS: Sodium Bicarbonate 150 MEQ in D5% in Water 1,000 ML IVC SCH (10:45)
[2019-11-11] MEDS ORDERED: Morphine Sulfate 2 MG/ML SYRINGE IVP ONE (13:03)
[2019-11-11 14:04] LABS: Hematocrit 24.3 % (35.3-44.9); Hemoglobin 7.3 g/dL (11.5-15.4)
[2019-11-11] MEDS ORDERED: 0.9 % Sodium Chloride 250 ML IVC SCH (16:45)
[2019-11-11 17:17] LABS: Protein/Creatinine Ratio,Urine 0.89 mg/mg (0.00-0.20); Sodium, Urine 42.1 mEq/L
[2019-11-11 17:28] LABS: Calcium 8.1 mg/dL (8.6-10.3); Potassium 4.6 mEq/L (3.5-5.1)
[2019-11-11] MEDS: Nystatin POWDER 30 GM BOTTLE TP SCH (20:16)
[2019-11-11] MEDS ORDERED: Heparin 25,000UNIT/250ML 1/2NS 25,000 UNIT/250 ML IV.SOLN IVC SCH (20:30)
[2019-11-12] MEDS: Sodium Bicarbonate 150 MEQ in D5% in Water 1,000 ML IVC SCH (00:47)
[2019-11-12] MEDS: *HR* OxyCODONE Immed Rel 5 MG TABLET PO PRN (00:49)
[2019-11-12 01:55] LABS: Hematocrit 29.1 % (35.3-44.9)
[2019-11-12 01:56] LABS: Hemoglobin 9.2 g/dL (11.5-15.4)
[2019-11-12 04:52] LABS: Basophils % 0.2 %; Eosinophils # 0.1 K/mcL (0.0-0.6); Eosinophils % 0.7 %; Hemoglobin 9.3 g/dL (11.5-15.4); Immature Granulocytes % 2.8 % (0-4); Lymphocytes # 1.4 K/mcL (0.6-4.6); Mean Corpuscular HGB Conc 32.1 g/dL (31.6-35.5); Mean Corpuscular Hemoglobin 27.6 pg (28.0-33.3); Mean Corpuscular Volume 86.1 fL (83.0-100.0); Mean Platelet Volume 9.5 fL (9.4-12.4); Monocytes # 0.6 K/mcL (0.0-1.3); Monocytes % 6.9 %; Neutrophils # 6.9 K/mcL (1.6-8.9); Platelet Count 174 K/mcL (140-400); Red Blood Count 3.37 M/mcL (3.82-4.97); Segmented Neutrophils % 74.4 %; White Blood Count 9.2 K/mcL (4.3-11.1)
[2019-11-12 05:09] LABS: Potassium 4.6 mEq/L (3.5-5.1)
[2019-11-12] MEDS: Cholecalciferol (D-3) 1,000 UNIT (25MCG) TABLET PO SCH (08:16)
[2019-11-12] MEDS: Piperacillin/Tazobactam 3.375 GM in 0.9 % Sodium Chloride Mini Bag 100 ML IVPB SCH ×2 (08:16→20:00)
[2019-11-12] MEDS: Nystatin POWDER 30 GM BOTTLE TP SCH ×2 (08:17→19:57)
[2019-11-12] MEDS ORDERED: *HR* OxyCODONE Immed Rel 5 MG TABLET PO PRN (15:10)
[2019-11-12] MEDS ORDERED: Sodium Bicarbonate 150 MEQ in D5% in Water 1,000 ML IVC SCH (15:10)
[2019-11-12] MEDS: Heparin 25,000UNIT/250ML 1/2NS 25,000 UNIT/250 ML IV.SOLN IVC SCH (20:07)
[2019-11-13] MEDS: Heparin 25,000UNIT/250ML 1/2NS 25,000 UNIT/250 ML IV.SOLN IVC SCH (01:49)
[2019-11-13 05:17] LABS: Hematocrit 31.4 % (35.3-44.9); Hemoglobin 9.9 g/dL (11.5-15.4); Mean Corpuscular HGB Conc 31.5 g/dL (31.6-35.5); Mean Corpuscular Hemoglobin 27.2 pg (28.0-33.3); Mean Corpuscular Volume 86.3 fL (83.0-100.0); Mean Platelet Volume 9.4 fL (9.4-12.4); Nucleated Red Blood Cells 0.2 /100 WBC (0); Platelet Count 192 K/mcL (140-400); Red Blood Count 3.64 M/mcL (3.82-4.97); Red Cell Distribution Width 18.3 % (11.5-14.5); White Blood Count 8.2 K/mcL (4.3-11.1)
[2019-11-13 05:39] LABS: Calcium 8.5 mg/dL (8.6-10.3); Potassium 4.4 mEq/L (3.5-5.1)
[2019-11-13 05:42] LABS: Monocytes # 0.3 K/mcL (0.0-1.3); Neutrophils # 5.9 K/mcL (1.6-8.9); Platelet Estimate Normal (Normal)
[2019-11-13] MEDS: Cholecalciferol (D-3) 1,000 UNIT (25MCG) TABLET PO SCH (08:37)
[2019-11-13] MEDS: Piperacillin/Tazobactam 3.375 GM in 0.9 % Sodium Chloride Mini Bag 100 ML IVPB SCH ×2 (08:38→21:46)
[2019-11-13] MEDS: D5% in Water 1,000 ML IVC SCH ×2 (08:42→21:45)
[2019-11-13] MEDS: Nystatin POWDER 30 GM BOTTLE TP SCH ×2 (10:02→21:46)
[2019-11-13 12:37] LABS: Calcium 8.2 mg/dL (8.6-10.3)
[2019-11-13] MEDS ORDERED: Heparin 25,000UNIT/250ML 1/2NS 25,000 UNIT/250 ML IV.SOLN IVC SCH (14:07)
[2019-11-13] MEDS ORDERED: *HR* Heparin 5,000 UNIT/ML VIAL IVP PRN ×2 (14:14)
[2019-11-13 14:22] LABS: INR 1.2; Prothrombin Time 13.1 Seconds (9.4-12.1)
[2019-11-13 14:25] LABS: Activated Partial Thrombo Time 46.6 Seconds (26.0-36.0)
[2019-11-13] MEDS: Ondansetron 4 MG/2 ML VIAL IVP PRN (17:25)
[2019-11-13] MEDS ORDERED: Warfarin perPT PO PRN (18:00)
[2019-11-13] MEDS ORDERED: *HR* Warfarin 5 MG TABLET PO ONE (18:00)
[2019-11-13 19:24] LABS: Adenovirus F 40/41 PCR Not detected (Not detect); Astrovirus PCR Not detected (Not detect); C.difficile Toxin A/B Gene PCR Not detected (Not detect); Campylobacter by PCR Not detected (Not detect); Cryptosporidium by PCR Not detected (Not detect); Cyclospora cayetanensis PCR Not detected (Not detect); E. coli O157 by PCR Not detected (Not detect); Entamoeba histolytica PCR Not detected (Not detect); Enteroaggregative E.coli(EAEC) Not detected (Not detect); Enteropathogenic E.coli(EPEC) Not detected (Not detect); Enterotoxigenic E.coli (ETEC) Not detected (Not detect); Giardia lamblia PCR Not detected (Not detect); Norovirus GI/GII PCR Not detected (Not detect); Plesiomonas shigelloides PCR Not detected (Not detect); Rotavirus A PCR Not detected (Not detect); Salmonella PCR Not detected (Not detect); Sapovirus PCR Not detected (Not detect); Shig/EnteroinvasiveE coli EIEC Not detected (Not detect); Shigalike tox-prod E coli STEC Not detected (Not detect); Vibrio PCR Not detected (Not detect); Vibrio cholerae PCR Not detected (Not detect); Yersinia enterocolitica PCR Not detected (Not detect)
[2019-11-14 04:27] LABS: Hematocrit 30.2 % (35.3-44.9); Mean Corpuscular HGB Conc 29.8 g/dL (31.6-35.5); Mean Corpuscular Hemoglobin 26.3 pg (28.0-33.3); Mean Corpuscular Volume 88.3 fL (83.0-100.0); Mean Platelet Volume 9.6 fL (9.4-12.4); Platelet Count 175 K/mcL (140-400); Red Blood Count 3.42 M/mcL (3.82-4.97); Red Cell Distribution Width 18.6 % (11.5-14.5); White Blood Count 8.2 K/mcL (4.3-11.1)
[2019-11-14 04:33] LABS: INR 1.2; Prothrombin Time 13.7 Seconds (9.4-12.1)
[2019-11-14 04:40] LABS: Calcium 8.2 mg/dL (8.6-10.3); Potassium 3.9 mEq/L (3.5-5.1)
[2019-11-14 06:05] LABS: Heparin anti-factor XA UFH 1.46 IU/mL (0.30-0.70)
[2019-11-14] MEDS: Cholecalciferol (D-3) 1,000 UNIT (25MCG) TABLET PO SCH (08:16)
[2019-11-14] MEDS: Heparin 25,000UNIT/250ML 1/2NS 25,000 UNIT/250 ML IV.SOLN IVC SCH (08:17)
[2019-11-14] MEDS: D5% in Water 1,000 ML IVC SCH ×2 (08:18→17:51)
[2019-11-14] MEDS: cefTRIAXone 1,000 MG in Water for inj. (sterile) 10 ML IVP SCH (08:21)
[2019-11-14] MEDS: Nystatin POWDER 30 GM BOTTLE TP SCH ×2 (08:22→20:35)
[2019-11-14] MEDS ORDERED: *HR* Promethazine 25 MG/ML VIAL IVP PRN (10:33)
[2019-11-14] MEDS ORDERED: Famotidine 400 MG/50 ML ORAL SUSPENSION PO SCH ×2 (10:45→21:15)
[2019-11-14] MEDS: Ondansetron 4 MG/2 ML VIAL IVP PRN (12:34)
[2019-11-14 14:58] LABS: Heparin anti-factor XA UFH 0.53 IU/mL (0.30-0.70)
[2019-11-14 15:00] LABS: Activated Partial Thrombo Time 66.9 Seconds (26.0-36.0)
[2019-11-14] MEDS ORDERED: *HR* Warfarin 5 MG TABLET PO ONE (18:00)
[2019-11-14] MEDS: Famotidine 400 MG/50 ML ORAL SUSPENSION PO SCH (22:25)
[2019-11-15 05:23] LABS: Hematocrit 30.5 % (35.3-44.9); Hemoglobin 9.1 g/dL (11.5-15.4); Mean Corpuscular HGB Conc 29.8 g/dL (31.6-35.5); Mean Corpuscular Hemoglobin 26.4 pg (28.0-33.3); Mean Corpuscular Volume 88.4 fL (83.0-100.0); Mean Platelet Volume 9.5 fL (9.4-12.4); Platelet Count 150 K/mcL (140-400); Red Blood Count 3.45 M/mcL (3.82-4.97); Red Cell Distribution Width 18.2 % (11.5-14.5); White Blood Count 7.6 K/mcL (4.3-11.1)
[2019-11-15 05:40] LABS: BUN/Creatinine Ratio 14 (6-26); Blood Urea Nitrogen 15 mg/dL (8-23); Calcium 7.9 mg/dL (8.6-10.3); Carbon Dioxide 25 mEq/L (23-29); Chloride 105 mEq/L (98-107); Glucose 119 mg/dL (70-105); INR 1.3; Osmolality,Calculated 290 (280-300); Prothrombin Time 14.5 Seconds (9.4-12.1); Sodium 139 mEq/L (136-145); eGFR For African Americans > 60 (> 60); eGFR For Non-African Americans 53 (> 60)
[2019-11-15] MEDS: Heparin 25,000UNIT/250ML 1/2NS 25,000 UNIT/250 ML IV.SOLN IVC SCH (09:01)
[2019-11-15] MEDS: cefTRIAXone 1,000 MG in Water for inj. (sterile) 10 ML IVP SCH (09:02)
[2019-11-15] MEDS: Nystatin POWDER 30 GM BOTTLE TP SCH ×2 (09:03→20:48)
[2019-11-15] MEDS: Lactobacillus 1 EACH CAP.SPRINK PO SCH (09:04)
[2019-11-15] MEDS: Cholecalciferol (D-3) 1,000 UNIT (25MCG) TABLET PO SCH (09:04)
[2019-11-15] MEDS: Famotidine 400 MG/50 ML ORAL SUSPENSION PO SCH ×2 (09:06→20:48)
[2019-11-15] MEDS: D5% in Water 1,000 ML IVC SCH (14:54)
[2019-11-15] MEDS ORDERED: *HR* Warfarin 5 MG TABLET PO ONE (18:00)
[2019-11-16 07:11] LABS: Mean Corpuscular Hemoglobin 27.7 pg (28.0-33.3); Mean Corpuscular Volume 89.2 fL (83.0-100.0); Mean Platelet Volume 9.4 fL (9.4-12.4); Platelet Count 142 K/mcL (140-400); Red Blood Count 3.25 M/mcL (3.82-4.97); Red Cell Distribution Width 18.2 % (11.5-14.5); White Blood Count 9.1 K/mcL (4.3-11.1)
[2019-11-16 07:15] LABS: INR 1.8; Prothrombin Time 20.6 Seconds (9.4-12.1)
[2019-11-16 08:22] LABS: BUN/Creatinine Ratio 11 (6-26); Blood Urea Nitrogen 10 mg/dL (8-23); Carbon Dioxide 24 mEq/L (23-29); Chloride 106 mEq/L (98-107); Glucose 119 mg/dL (70-105); Osmolality,Calculated 286 (280-300); Potassium 3.4 mEq/L (3.5-5.1); Sodium 138 mEq/L (136-145); eGFR For African Americans > 60 (> 60); eGFR For Non-African Americans > 60 (> 60)
[2019-11-16] MEDS: cefTRIAXone 1,000 MG in Water for inj. (sterile) 10 ML IVP SCH (10:50)
[2019-11-16] MEDS: Cholecalciferol (D-3) 1,000 UNIT (25MCG) TABLET PO SCH (10:52)
[2019-11-16] MEDS: Lactobacillus 1 EACH CAP.SPRINK PO SCH (10:52)
[2019-11-16] MEDS: Nystatin POWDER 30 GM BOTTLE TP SCH ×2 (11:10→21:43)
[2019-11-16] MEDS: Famotidine 400 MG/50 ML ORAL SUSPENSION PO SCH ×2 (14:35→21:43)
[2019-11-16] MEDS ORDERED: *HR* Warfarin 5 MG TABLET PO ONE (18:00)
[2019-11-16] MEDS: *HR* Enoxaparin 100 MG/ML SYRINGE SQ SCH (18:23)
[2019-11-17 04:12] LABS: INR 2.1
[2019-11-17 04:24] LABS: BUN/Creatinine Ratio 8 (6-26); Blood Urea Nitrogen 9 mg/dL (8-23); Calcium 7.8 mg/dL (8.6-10.3); Carbon Dioxide 24 mEq/L (23-29); Chloride 106 mEq/L (98-107); Glucose 126 mg/dL (70-105); Osmolality,Calculated 286 (280-300); Potassium 3.3 mEq/L (3.5-5.1); Sodium 138 mEq/L (136-145); eGFR For African Americans > 60 (> 60); eGFR For Non-African Americans 52 (> 60)
[2019-11-17] MEDS: *HR* Enoxaparin 100 MG/ML SYRINGE SQ SCH (05:15)
[2019-11-17 06:33] VITALS: BP 128/76
[2019-11-17] MEDS: Lactobacillus 1 EACH CAP.SPRINK PO SCH (11:29)
[2019-11-17] MEDS: Cholecalciferol (D-3) 1,000 UNIT (25MCG) TABLET PO SCH (11:29)
[2019-11-17] MEDS: Famotidine 400 MG/50 ML ORAL SUSPENSION PO SCH (11:29)
[2019-11-17] MEDS: Nystatin POWDER 30 GM BOTTLE TP SCH (11:31)
[2019-11-17] MEDS: cefTRIAXone 1,000 MG in Water for inj. (sterile) 10 ML IVP SCH (11:31)
== END 2019-11-17 16:00 | disposition home or self-care (01) | DRG 871 ==
LOC: EMEROOARM 18:14 → ICNU 21:11 → SUATTDRO 21:11 → ICNU 23:34 → 3NENU 11-12 22:50
PROVIDERS: ADMIT Family Medicine; ATTEND Internal Medicine

== ENCOUNTER 2020-01-15 04:48 | Observation (INO) ==
[2020-01-15] MEDS ORDERED: Isovue-370 500 ML BOTTLE IVP ONE (05:05)
[2020-01-15 07:16] LABS: Hemoglobin 10.1 g/dL (11.5-15.4); Mean Corpuscular HGB Conc 29.7 g/dL (31.6-35.5); Mean Corpuscular Hemoglobin 26.2 pg (28.0-33.3); Mean Corpuscular Volume 88.3 fL (83.0-100.0); Monocytes # 0.6 K/mcL (0.0-1.3); Platelet Count 292 K/mcL (140-400); Red Blood Count 3.85 M/mcL (3.82-4.97); Red Cell Distribution Width 20.5 % (11.5-14.5); White Blood Count 5.6 K/mcL (4.3-11.1)
[2020-01-15 07:35] LABS: Albumin 2.4 g/dL (3.5-5.7); Albumin/Globulin Ratio 0.8 (1.1-2.2); Bilirubin,Direct 0.2 mg/dL (0.0-0.2); Bilirubin,Indirect 0.2 mg/dL (0.0-1.0); Bilirubin,Total 0.4 mg/dL (0.3-1.0); Calcium 8.4 mg/dL (8.6-10.3); Total Protein 5.4 g/dL (6.4-8.9); Troponin I 0.03 ng/mL (< 0.04)
[2020-01-15] MEDS ORDERED: 0.9 % Sodium Chloride 1,000 ML IVC ONE (07:44)
[2020-01-15 07:51] LABS: INR 3.5; Prothrombin Time 39.2 Seconds (9.4-12.1)
[2020-01-15 08:15] LABS: Bilirubin,Urine Negative (Negative); Blood,Urine Moderate (Negative); Clarity,Urine Ex.Turbid (Clear); Color,Urine Dark-Yellow (Yellow); Glucose,Urine (UA) Normal (Normal); Ketones,Urine Trace mg/dL (Negative); Leukocyte Esterase,Urine Large (Negative); Nitrite,Urine Positive (Negative); PH,Urine 5.5 pH Units (5.0-8.0); Protein,Urine 70 mg/dL (Neg-Trace); Specific Gravity,Urine 1.026 (1.010-1.025)
[2020-01-15] MEDS ORDERED: Piperacillin/Tazobactam 3.375 GM in 0.9 % Sodium Chloride Mini Bag 100 ML IVPB ONE (08:20)
[2020-01-15 08:29] LABS: Eosinophils # 0.2 K/mcL (0.0-0.6); Lymphocytes # 1.6 K/mcL (0.6-4.6); Neutrophils # 3.1 K/mcL (1.6-8.9)
[2020-01-15 08:30] LABS: Anisocytosis 1+ (Not Present); Platelet Estimate Normal (Normal)
[2020-01-15 09:09] LABS: Bacteria,Urine Many per hpf (None-Few)
[2020-01-15 09:10] LABS: Renal Epithelial Cells,Urine Few per hpf (None-Few); Transitional Epi Cells,Urine Few per hpf (None-Few)
[2020-01-15 09:16] LABS: WBC,Urine TNTC per hpf (0-3)
[2020-01-15 09:18] LABS: Squamous Epithelial Cell,Urine Few per hpf (None-Few)
[2020-01-15 09:26] LABS: RBC,Urine 0-3 per hpf (0-3)
[2020-01-15] MEDS ORDERED: Naloxone 0.4 MG/ML INJ IVP PRN (09:56)
[2020-01-15] MEDS ORDERED: Acetaminophen 325 MG TABLET PO PRN (09:56)
[2020-01-15] MEDS: cefTRIAXone 1,000 MG in Water for inj. (sterile) 10 ML IVP SCH (10:44)
[2020-01-15 14:07] LABS: Adenovirus F 40/41 PCR Not detected (Not detect); Astrovirus PCR Not detected (Not detect); C.difficile Toxin A/B Gene PCR Not detected (Not detect); Campylobacter by PCR Not detected (Not detect); Cryptosporidium by PCR Not detected (Not detect); Cyclospora cayetanensis PCR Not detected (Not detect); E. coli O157 by PCR Not detected (Not detect); Entamoeba histolytica PCR Not detected (Not detect); Enteroaggregative E.coli(EAEC) Not detected (Not detect); Enteropathogenic E.coli(EPEC) Not detected (Not detect); Enterotoxigenic E.coli (ETEC) Not detected (Not detect); Giardia lamblia PCR Not detected (Not detect); Norovirus GI/GII PCR Not detected (Not detect); Plesiomonas shigelloides PCR Not detected (Not detect); Rotavirus A PCR Not detected (Not detect); Salmonella PCR Not detected (Not detect); Sapovirus PCR Not detected (Not detect); Shig/EnteroinvasiveE coli EIEC Not detected (Not detect); Shigalike tox-prod E coli STEC Not detected (Not detect); Vibrio PCR Not detected (Not detect); Vibrio cholerae PCR Not detected (Not detect); Yersinia enterocolitica PCR Not detected (Not detect)
[2020-01-15] MEDS ORDERED: Warfarin perPT PO PRN (18:00)
[2020-01-15] MEDS: calcium polycarbophiL 625 MG TABLET PO SCH (20:39)
[2020-01-16] MEDS: cefTRIAXone 1,000 MG in Water for inj. (sterile) 10 ML IVP SCH (08:11)
[2020-01-16] MEDS: calcium polycarbophiL 625 MG TABLET PO SCH ×3 (08:11→20:59)
[2020-01-16 12:02] LABS: BUN/Creatinine Ratio 24 (6-26); Blood Urea Nitrogen 23 mg/dL (8-23); Calcium 8.2 mg/dL (8.6-10.3); Carbon Dioxide 15 mEq/L (23-29); Chloride 115 mEq/L (98-107); Chol/HDL Ratio 3.3 (0-4.9); Cholesterol 124 mg/dL (< 200); Glucose 57 mg/dL (70-105); HDL Cholesterol 38 mg/dL (40-59); LDL Cholesterol,Calculated 59 mg/dL (< 100); Magnesium 1.9 mg/dL (1.6-2.6); Osmolality,Calculated 295 (280-300); Potassium 4.1 mEq/L (3.5-5.1); Sodium 142 mEq/L (136-145); Triglycerides 134 mg/dL (< 150); eGFR For African Americans > 60 (> 60); eGFR For Non-African Americans > 60 (> 60)
[2020-01-16 14:59] LABS: Mean Platelet Volume 9.1 fL (9.4-12.4); Red Cell Distribution Width 21.2 % (11.5-14.5)
[2020-01-16 15:01] LABS: Eosinophils # 0.1 K/mcL (0.0-0.6); Hematocrit 35.3 % (35.3-44.9); Hemoglobin 10.5 g/dL (11.5-15.4); Mean Corpuscular HGB Conc 29.7 g/dL (31.6-35.5); Mean Corpuscular Hemoglobin 26.9 pg (28.0-33.3); Mean Corpuscular Volume 90.3 fL (83.0-100.0); Platelet Count 261 K/mcL (140-400); Red Blood Count 3.91 M/mcL (3.82-4.97); White Blood Count 4.7 K/mcL (4.3-11.1)
[2020-01-16 15:09] LABS: INR 3.9; Prothrombin Time 43.1 Seconds (9.4-12.1)
[2020-01-16 16:32] LABS: Lymphocytes # 1.7 K/mcL (0.6-4.6); Monocytes # 0.4 K/mcL (0.0-1.3); Neutrophils # 2.2 K/mcL (1.6-8.9)
[2020-01-16 16:33] LABS: Platelet Estimate Normal (Normal); Toxic Granulation Present (Not Present)
[2020-01-16 16:36] LABS: Toxic Vacuolation Present (Not Present)
[2020-01-16 16:37] LABS: Anisocytosis 2+ (Not Present); Poikilocytosis 1+ (Not Present)
[2020-01-16 17:51] LABS: Acinetobacter baumannii by PCR Not Detected (Not Detect); Candida albicans by PCR Not Detected (Not Detect); Candida glabrata by PCR Not Detected (Not Detect); Candida krusei by PCR Not Detected (Not Detect); Candida parapsilosis by PCR Not Detected (Not Detect); Candida tropicalis by PCR Not Detected (Not Detect); Enterobacter cloacae Cmplx PCR Not Detected (Not Detect); Enterobacteriaceae by PCR Not Detected (Not Detect); Enterococcus by PCR Not Detected (Not Detect); Escherichia coli by PCR Not Detected (Not Detect); Klebsiella oxytoca by PCR Not Detected (Not Detect); Klebsiella pneumoniae by PCR Not Detected (Not Detect); Proteus by PCR Not Detected (Not Detect); Pseudomonas aeruginosa by PCR Not Detected (Not Detect); Serratia marcescens by PCR Not Detected (Not Detect); Staphylococcus aureus by PCR Not Detected (Not Detect); Staphylococcus by PCR Not Detected (Not Detect); Streptococcus agalactiae(B)PCR Not Detected (Not Detect); Streptococcus by PCR Not Detected (Not Detect); Streptococcus pneumoniae PCR Not Detected (Not Detect); Streptococcus pyogenes (A) PCR Not Detected (Not Detect)
[2020-01-16] MEDS: lisinopriL 20 MG TABLET PO SCH (20:59)
[2020-01-16] MEDS ORDERED: Famotidine 20 MG/2 ML VIAL IVP ONE (21:01)
[2020-01-17 01:53] LABS: Eosinophils # 0.1 K/mcL (0.0-0.6); Hematocrit 30.3 % (35.3-44.9); Hemoglobin 9.2 g/dL (11.5-15.4); Mean Corpuscular HGB Conc 30.4 g/dL (31.6-35.5); Mean Corpuscular Hemoglobin 26.5 pg (28.0-33.3); Mean Corpuscular Volume 87.3 fL (83.0-100.0); Platelet Count 222 K/mcL (140-400); Red Blood Count 3.47 M/mcL (3.82-4.97); Red Cell Distribution Width 20.9 % (11.5-14.5); White Blood Count 5.1 K/mcL (4.3-11.1)
[2020-01-17 02:09] LABS: INR 4.2
[2020-01-17 02:13] LABS: BUN/Creatinine Ratio 27 (6-26); Blood Urea Nitrogen 21 mg/dL (8-23); Calcium 7.5 mg/dL (8.6-10.3); Carbon Dioxide 18 mEq/L (23-29); Chloride 115 mEq/L (98-107); Glucose 92 mg/dL (70-105); Osmolality,Calculated 295 (280-300); Potassium 3.5 mEq/L (3.5-5.1); Sodium 141 mEq/L (136-145); eGFR For African Americans > 60 (> 60); eGFR For Non-African Americans > 60 (> 60)
[2020-01-17 02:22] LABS: Anisocytosis 1+ (Not Present); Lymphocytes # 1.1 K/mcL (0.6-4.6); Monocytes # 0.2 K/mcL (0.0-1.3); Neutrophils # 3.7 K/mcL (1.6-8.9); Platelet Estimate Normal (Normal); Toxic Granulation Present (Not Present)
[2020-01-17] MEDS: cefTRIAXone 1,000 MG in Water for inj. (sterile) 10 ML IVP SCH (07:59)
[2020-01-17] MEDS: lisinopriL 20 MG TABLET PO SCH ×2 (08:00→20:07)
[2020-01-17] MEDS: calcium polycarbophiL 625 MG TABLET PO SCH ×2 (08:00→20:07)
[2020-01-17] MEDS: Famotidine 20 MG/2 ML VIAL IVP SCH (20:34)
[2020-01-18] MEDS: Famotidine 20 MG/2 ML VIAL IVP SCH ×2 (05:16→17:22)
[2020-01-18] MEDS: cefTRIAXone 1,000 MG in Water for inj. (sterile) 10 ML IVP SCH (08:06)
[2020-01-18] MEDS: lisinopriL 20 MG TABLET PO SCH (08:07)
[2020-01-18] MEDS: calcium polycarbophiL 625 MG TABLET PO SCH ×2 (08:07→22:31)
[2020-01-18 11:43] LABS: Hemoglobin 9.5 g/dL (11.5-15.4); Mean Corpuscular HGB Conc 29.7 g/dL (31.6-35.5); Mean Corpuscular Hemoglobin 25.7 pg (28.0-33.3); Mean Corpuscular Volume 86.7 fL (83.0-100.0); Mean Platelet Volume 9.4 fL (9.4-12.4); Platelet Count 239 K/mcL (140-400); Red Blood Count 3.69 M/mcL (3.82-4.97); Red Cell Distribution Width 21.1 % (11.5-14.5); White Blood Count 6.3 K/mcL (4.3-11.1)
[2020-01-18 11:55] LABS: INR 3.5; Prothrombin Time 39.6 Seconds (9.4-12.1)
[2020-01-18 12:03] LABS: BUN/Creatinine Ratio 21 (6-26); Blood Urea Nitrogen 20 mg/dL (8-23); Calcium 7.8 mg/dL (8.6-10.3); Carbon Dioxide 15 mEq/L (23-29); Chloride 113 mEq/L (98-107); Glucose 97 mg/dL (70-105); Osmolality,Calculated 291 (280-300); Potassium 4.1 mEq/L (3.5-5.1); Sodium 139 mEq/L (136-145); eGFR For African Americans > 60 (> 60); eGFR For Non-African Americans 59 (> 60)
[2020-01-19] MEDS: Famotidine 20 MG/2 ML VIAL IVP SCH (06:15)
[2020-01-19 09:04] LABS: Prothrombin Time 44.4 Seconds (9.4-12.1)
[2020-01-19] MEDS: calcium polycarbophiL 625 MG TABLET PO SCH (10:47)
[2020-01-19] MEDS: cefTRIAXone 1,000 MG in Water for inj. (sterile) 10 ML IVP SCH (10:47)
[2020-01-19 15:08] VITALS: BP 94/61
== END 2020-01-19 17:15 | disposition home or self-care (01) ==
LOC: EMEROOARM 04:48 → 3NENU 04:48
PROVIDERS: ADMIT Internal Medicine; ATTEND Internal Medicine

== ENCOUNTER 2020-01-31 16:15 | Inpatient (IN) ==
[2020-01-31] MEDS ORDERED: 0.9 % Sodium Chloride 1,000 ML IVC ONE (16:23)
[2020-01-31 17:07] LABS: Hematocrit 32.7 % (35.3-44.9); Hemoglobin 9.8 g/dL (11.5-15.4); Mean Corpuscular Hemoglobin 26.2 pg (28.0-33.3); Mean Corpuscular Volume 87.4 fL (83.0-100.0); Mean Platelet Volume 9.1 fL (9.4-12.4); Nucleated Red Blood Cells 0.4 /100 WBC (0); Platelet Count 186 K/mcL (140-400); Red Blood Count 3.74 M/mcL (3.82-4.97); Red Cell Distribution Width 21.4 % (11.5-14.5); White Blood Count 7.2 K/mcL (4.3-11.1)
[2020-01-31 17:19] LABS: Alanine Aminotransferase 20 Units/L (7-52); Albumin 2.3 g/dL (3.5-5.7); Albumin/Globulin Ratio 0.9 (1.1-2.2); Alkaline Phosphatase 141 Units/L (34-104); Aspartate Amino Transferase 13 Units/L (13-39); BUN/Creatinine Ratio 38 (6-26); Bilirubin,Direct 0.1 mg/dL (0.0-0.2); Bilirubin,Indirect 0.3 mg/dL (0.0-1.0); Bilirubin,Total 0.4 mg/dL (0.3-1.0); Blood Urea Nitrogen 40 mg/dL (8-23); Calcium 8.3 mg/dL (8.6-10.3); Carbon Dioxide 21 mEq/L (23-29); Chloride 108 mEq/L (98-107); Globulin 2.7 g/dL (2.4-3.5); Glucose 76 mg/dL (70-105); Lipase 88 Units/L (11-82); Osmolality,Calculated 299 (280-300); Potassium 4.9 mEq/L (3.5-5.1); Sodium 140 mEq/L (136-145); eGFR For African Americans > 60 (> 60); eGFR For Non-African Americans 53 (> 60)
[2020-01-31 17:29] LABS: Lymphocytes # 3.3 K/mcL (0.6-4.6); Monocytes # 0.4 K/mcL (0.0-1.3); Reactive Lymphocytes Present (Not Present); Smudge Cells Present (Not Present)
[2020-01-31 17:36] LABS: Bilirubin,Urine Small (Negative); Blood,Urine Negative (Negative); Clarity,Urine Clear (Clear); Color,Urine Yellow (Yellow); Glucose,Urine (UA) Normal (Normal); Hyaline Casts,Urine Few per lpf (None Seen); Ketones,Urine 10 mg/dL (Negative); Leukocyte Esterase,Urine Negative (Negative); Mucus,Urine Few per lpf (None-Few); Nitrite,Urine Negative (Negative); PH,Urine 5.5 pH Units (5.0-8.0); Protein,Urine 30 mg/dL (Neg-Trace); RBC,Urine 0-3 per hpf (0-3); Specific Gravity,Urine 1.027 (1.010-1.025); Squamous Epithelial Cell,Urine Few per hpf (None-Few); Urobilinogen,Urine Normal (Normal); WBC,Urine 0-3 per hpf (0-3)
[2020-01-31 18:28] LABS: INR 3.3; Prothrombin Time 36.5 Seconds (9.4-12.1)
[2020-01-31 18:31] LABS: Activated Partial Thrombo Time 30.4 Seconds (26.0-36.0)
[2020-01-31] MEDS: 0.9 % Sodium Chloride 1,000 ML IVC SCH (19:01)
[2020-01-31] MEDS ORDERED: Acetaminophen 325 MG TABLET PO PRN (22:25)
[2020-01-31] MEDS ORDERED: Naloxone 0.4 MG/ML INJ IVP PRN (22:25)
[2020-02-01 02:28] LABS: INR 3.1; Prothrombin Time 35.2 Seconds (9.4-12.1)
[2020-02-01 02:31] LABS: Activated Partial Thrombo Time 25.8 Seconds (26.0-36.0)
[2020-02-01 02:48] LABS: Alanine Aminotransferase 20 Units/L (7-52); Albumin 2.2 g/dL (3.5-5.7); Albumin/Globulin Ratio 0.9 (1.1-2.2); Alkaline Phosphatase 123 Units/L (34-104); Aspartate Amino Transferase 13 Units/L (13-39); BUN/Creatinine Ratio 43 (6-26); Bilirubin,Total 0.4 mg/dL (0.3-1.0); Blood Urea Nitrogen 38 mg/dL (8-23); Calcium 7.7 mg/dL (8.6-10.3); Carbon Dioxide 18 mEq/L (23-29); Chloride 112 mEq/L (98-107); Chol/HDL Ratio 3.9 (0-4.9); Cholesterol 118 mg/dL (< 200); Globulin 2.5 g/dL (2.4-3.5); Glucose 68 mg/dL (70-105); HDL Cholesterol 30 mg/dL (40-59); LDL Cholesterol,Calculated 62 mg/dL (< 100); Magnesium 1.9 mg/dL (1.6-2.6); Osmolality,Calculated 297 (280-300); Potassium 4.3 mEq/L (3.5-5.1); Sodium 140 mEq/L (136-145); Total Protein 4.7 g/dL (6.4-8.9); Triglycerides 131 mg/dL (< 150); Troponin I < 0.03 ng/mL (< 0.04); eGFR For African Americans > 60 (> 60); eGFR For Non-African Americans > 60 (> 60)
[2020-02-01] MEDS: 0.9 % Sodium Chloride 1,000 ML IVC SCH ×3 (03:01→17:59)
[2020-02-01] MEDS ORDERED: 0.9 % Sodium Chloride 500 ML IV ONE (04:50)
[2020-02-01] MEDS ORDERED: 0.9 % Sodium Chloride 500 ML ONE (04:53)
[2020-02-01 06:34] LABS: Hematocrit 26.6 % (35.3-44.9); Mean Corpuscular HGB Conc 30.1 g/dL (31.6-35.5); Mean Corpuscular Hemoglobin 26.3 pg (28.0-33.3); Mean Corpuscular Volume 87.5 fL (83.0-100.0); Mean Platelet Volume 9.6 fL (9.4-12.4); Platelet Count 138 K/mcL (140-400); Red Blood Count 3.04 M/mcL (3.82-4.97); Red Cell Distribution Width 21.3 % (11.5-14.5); White Blood Count 6.6 K/mcL (4.3-11.1)
[2020-02-01 07:30] LABS: % Iron Saturation 26 % (15-50); Iron 35 mcg/dL (50-170); Transferrin 95 mg/dL (203-362)
[2020-02-01] MEDS: Apixaban 5 MG TABLET PO SCH ×2 (08:39→19:55)
[2020-02-01] MEDS ORDERED: NON-FORMULARY MEDICATION 1 EACH EACH (Lisinopril [Zestril] 40 MG) PO SCH (09:00)
[2020-02-01] MEDS: Sodium Bicarbonate 50 MEQ in 0.45 % Sodium Chloride 1,000 ML IVC SCH ×2 (12:37→23:31)
[2020-02-01] MEDS ORDERED: Dextrose Gel 15 GM/37.5 ML TUBE PO PRN (13:05)
[2020-02-01] MEDS: Dextrose Gel 15 GM/37.5 ML TUBE PO PRN ×2 (13:45→15:42)
[2020-02-01 14:32] LABS: Hematocrit 28.7 % (35.3-44.9); Hemoglobin 8.7 g/dL (11.5-15.4)
[2020-02-01] MEDS: D5% in Water 1,000 ML IVC PRN (16:19)
[2020-02-01 16:50] LABS: BUN/Creatinine Ratio 42 (6-26); Blood Urea Nitrogen 33 mg/dL (8-23); Calcium 7.4 mg/dL (8.6-10.3); Carbon Dioxide 16 mEq/L (23-29); Chloride 116 mEq/L (98-107); Glucose 75 mg/dL (70-105); Osmolality,Calculated 300 (280-300); Potassium 4.7 mEq/L (3.5-5.1); Sodium 142 mEq/L (136-145); eGFR For African Americans > 60 (> 60); eGFR For Non-African Americans > 60 (> 60)
[2020-02-01] MEDS ORDERED: Ringers Solution, Lactated 500 ML IVC ONE (16:54)
[2020-02-01 20:25] LABS: Folate 7.2 ng/mL (3.0-16.0)
[2020-02-01] MEDS ORDERED: atenoloL 50 MG TABLET PO SCH (21:00)
[2020-02-01 21:10] LABS: Hematocrit 26.8 % (35.3-44.9); Hemoglobin 8.1 g/dL (11.5-15.4); Mean Corpuscular HGB Conc 30.2 g/dL (31.6-35.5); Mean Corpuscular Volume 86.2 fL (83.0-100.0); Mean Platelet Volume 9.5 fL (9.4-12.4); Platelet Count 155 K/mcL (140-400); Red Blood Count 3.11 M/mcL (3.82-4.97); Red Cell Distribution Width 21.2 % (11.5-14.5); White Blood Count 8.4 K/mcL (4.3-11.1)
[2020-02-01 21:30] LABS: Monocytes # 0.5 K/mcL (0.0-1.3); Neutrophils # 5.5 K/mcL (1.6-8.9); Reactive Lymphocytes Present (Not Present)
[2020-02-01 22:34] LABS: Campylobacter by PCR Not detected (Not detect)
[2020-02-01 22:36] LABS: Adenovirus F 40/41 PCR Not detected (Not detect); Astrovirus PCR Not detected (Not detect); C.difficile Toxin A/B Gene PCR DETECTED (Not detect); Cryptosporidium by PCR Not detected (Not detect); Cyclospora cayetanensis PCR Not detected (Not detect); E. coli O157 by PCR Not detected (Not detect); Entamoeba histolytica PCR Not detected (Not detect); Enteroaggregative E.coli(EAEC) Not detected (Not detect); Enteropathogenic E.coli(EPEC) Not detected (Not detect); Enterotoxigenic E.coli (ETEC) Not detected (Not detect); Giardia lamblia PCR Not detected (Not detect); Norovirus GI/GII PCR Not detected (Not detect); Plesiomonas shigelloides PCR Not detected (Not detect); Rotavirus A PCR Not detected (Not detect); Salmonella PCR Not detected (Not detect); Sapovirus PCR Not detected (Not detect); Shig/EnteroinvasiveE coli EIEC Not detected (Not detect); Shigalike tox-prod E coli STEC Not detected (Not detect); Vibrio PCR Not detected (Not detect); Vibrio cholerae PCR Not detected (Not detect); Yersinia enterocolitica PCR Not detected (Not detect)
[2020-02-02] MEDS ORDERED: 0.9 % Sodium Chloride 1,000 ML ONE ×2 (03:06→05:16)
[2020-02-02] MEDS ORDERED: 0.9 % Sodium Chloride 1,000 ML IV ONE (03:15)
[2020-02-02] MEDS: Ondansetron 4 MG/2 ML VIAL IVP PRN ×2 (03:15→14:30)
[2020-02-02] MEDS ORDERED: metroNIDAZOLE 500 MG TABLET PO SCH (04:00)
[2020-02-02] MEDS ORDERED: Vancomycin Oral Soln 125 MG/2.5 ML UDC PO SCH (05:00)
[2020-02-02] MEDS ORDERED: 0.9 % Sodium Chloride 1,000 ML IVC ONE (05:18)
[2020-02-02] MEDS: Pantoprazole 40 MG VIAL IVP SCH ×2 (06:00→16:55)
[2020-02-02] MEDS: Albumin Human 5% 12.5 GM/250 ML IV.SOLN IVC SCH ×2 (07:43→09:02)
[2020-02-02] MEDS: Vancomycin Oral Soln 125 MG/2.5 ML UDC PO SCH ×4 (09:14→20:19)
[2020-02-02] MEDS: MetroNIDAZOLE 500 MG/100 ML 500 MG/100 ML BAG IVPB SCH ×2 (09:14→16:56)
[2020-02-02] MEDS ORDERED: Ringers Solution, Lactated 1,000 ML IVC ONE (09:55)
[2020-02-02 10:23] LABS: Hematocrit 21.3 % (35.3-44.9); Mean Corpuscular HGB Conc 29.1 g/dL (31.6-35.5); Mean Corpuscular Hemoglobin 25.9 pg (28.0-33.3); Mean Corpuscular Volume 89.1 fL (83.0-100.0); Mean Platelet Volume 9.2 fL (9.4-12.4); Nucleated Red Blood Cells 0.6 /100 WBC (0); Platelet Count 118 K/mcL (140-400); Red Blood Count 2.39 M/mcL (3.82-4.97); Red Cell Distribution Width 21.2 % (11.5-14.5); White Blood Count 8.6 K/mcL (4.3-11.1)
[2020-02-02 10:28] LABS: Hemoglobin 6.2 g/dL (11.5-15.4)
[2020-02-02 10:32] LABS: INR 3.7; Prothrombin Time 41.4 Seconds (9.4-12.1)
[2020-02-02 10:52] LABS: BUN/Creatinine Ratio 35 (6-26); Blood Urea Nitrogen 33 mg/dL (8-23); Calcium 6.4 mg/dL (8.6-10.3); Carbon Dioxide 19 mEq/L (23-29); Chloride 112 mEq/L (98-107); Glucose 117 mg/dL (70-105); Lipase 39 Units/L (11-82); Magnesium 1.5 mg/dL (1.6-2.6); Osmolality,Calculated 298 (280-300); Phosphorous 1.9 mg/dL (2.7-4.5); Potassium 3.5 mEq/L (3.5-5.1); Sodium 140 mEq/L (136-145); eGFR For African Americans > 60 (> 60); eGFR For Non-African Americans > 60 (> 60)
[2020-02-02 10:53] LABS: Eosinophils # 0.1 K/mcL (0.0-0.6); Lymphocytes # 1.7 K/mcL (0.6-4.6); Monocytes # 0.2 K/mcL (0.0-1.3); Neutrophils # 6.2 K/mcL (1.6-8.9)
[2020-02-02 10:54] LABS: Anisocytosis 1+ (Not Present); Platelet Estimate Slight Decrease (Normal)
[2020-02-02 10:55] LABS: Hypochromasia Present (Not Present)
[2020-02-02] MEDS ORDERED: 0.9 % Sodium Chloride 250 ML ONE ×2 (11:11→16:50)
[2020-02-02] MEDS: Sodium Bicarbonate 50 MEQ in 0.45 % Sodium Chloride 1,000 ML IVC SCH ×3 (11:24→21:42)
[2020-02-02] MEDS: Norepinephrine 4 MG/254 ML IV.SOLN IVC SCH ×2 (12:12→23:17)
[2020-02-02] MEDS ORDERED: Isovue-370 500 ML BOTTLE RC ONE (13:46)
[2020-02-02 17:27] LABS: Hematocrit 34.8 % (35.3-44.9)
[2020-02-02 17:29] LABS: Hemoglobin 11.3 g/dL (11.5-15.4)
[2020-02-02 22:11] LABS: Hematocrit 31.9 % (35.3-44.9); Hemoglobin 10.2 g/dL (11.5-15.4); Mean Corpuscular Hemoglobin 27.7 pg (28.0-33.3); Mean Corpuscular Volume 86.7 fL (83.0-100.0); Mean Platelet Volume 9.4 fL (9.4-12.4); Nucleated Red Blood Cells 0.6 /100 WBC (0); Platelet Count 126 K/mcL (140-400); Red Blood Count 3.68 M/mcL (3.82-4.97); Red Cell Distribution Width 17.7 % (11.5-14.5)
[2020-02-02 22:35] LABS: BUN/Creatinine Ratio 35 (6-26); Blood Urea Nitrogen 28 mg/dL (8-23); Calcium 6.6 mg/dL (8.6-10.3); Carbon Dioxide 20 mEq/L (23-29); Chloride 109 mEq/L (98-107); Glucose 112 mg/dL (70-105); Magnesium 2.2 mg/dL (1.6-2.6); Osmolality,Calculated 296 (280-300); Phosphorous 1.9 mg/dL (2.7-4.5); Potassium 3.1 mEq/L (3.5-5.1); Sodium 140 mEq/L (136-145); eGFR For African Americans > 60 (> 60); eGFR For Non-African Americans > 60 (> 60)
[2020-02-02 22:38] LABS: VBG Ionized Calcium 0.92 mmol/L (1.15-1.35)
[2020-02-02 22:49] LABS: Eosinophils # 0.2 K/mcL (0.0-0.6); Lymphocytes # 2.8 K/mcL (0.6-4.6); Monocytes # 0.2 K/mcL (0.0-1.3); Neutrophils # 6.8 K/mcL (1.6-8.9)
[2020-02-02 22:50] LABS: Reactive Lymphocytes Present (Not Present)
[2020-02-02] MEDS: Calcium Gluconate 1gm/50mL 1 GM/50 ML BAG IVPB PRN (23:44)
[2020-02-02] MEDS: Potassium Chloride 40 MEQ/200 ML BAG IVPB PRN (23:47)
[2020-02-03] MEDS: MetroNIDAZOLE 500 MG/100 ML 500 MG/100 ML BAG IVPB SCH ×3 (00:04→16:43)
[2020-02-03] MEDS: Ondansetron 4 MG/2 ML VIAL IVP PRN (02:01)
[2020-02-03 05:23] LABS: Hemoglobin 10.3 g/dL (11.5-15.4); Mean Corpuscular HGB Conc 32.2 g/dL (31.6-35.5); Mean Corpuscular Hemoglobin 27.9 pg (28.0-33.3); Mean Corpuscular Volume 86.7 fL (83.0-100.0); Mean Platelet Volume 9.6 fL (9.4-12.4); Nucleated Red Blood Cells 0.7 /100 WBC (0); Platelet Count 132 K/mcL (140-400); Red Blood Count 3.69 M/mcL (3.82-4.97); Red Cell Distribution Width 18.2 % (11.5-14.5); White Blood Count 8.8 K/mcL (4.3-11.1)
[2020-02-03 05:25] LABS: VBG Ionized Calcium 0.96 mmol/L (1.15-1.35)
[2020-02-03 05:33] LABS: INR 2.2; Prothrombin Time 24.8 Seconds (9.4-12.1)
[2020-02-03 05:43] LABS: BUN/Creatinine Ratio 31 (6-26); Blood Urea Nitrogen 24 mg/dL (8-23); Calcium 6.7 mg/dL (8.6-10.3); Carbon Dioxide 20 mEq/L (23-29); Chloride 109 mEq/L (98-107); Glucose 113 mg/dL (70-105); Osmolality,Calculated 295 (280-300); Phosphorous 1.6 mg/dL (2.7-4.5); Potassium 3.6 mEq/L (3.5-5.1); Sodium 140 mEq/L (136-145); eGFR For African Americans > 60 (> 60); eGFR For Non-African Americans > 60 (> 60)
[2020-02-03 05:44] LABS: Anisocytosis 1+ (Not Present); Lymphocytes # 2.3 K/mcL (0.6-4.6); Monocytes # 0.4 K/mcL (0.0-1.3); Neutrophils # 4.9 K/mcL (1.6-8.9); Platelet Estimate Slight Decrease (Normal); Poikilocytosis 1+ (Not Present); Reactive Lymphocytes Present (Not Present)
[2020-02-03] MEDS ORDERED: Calcium Gluconate 1gm/50mL 1 GM/50 ML BAG IVPB ONE (05:45)
[2020-02-03] MEDS: Potassium Chloride 40 MEQ/200 ML BAG IVPB PRN (06:17)
[2020-02-03] MEDS: Pantoprazole 40 MG VIAL IVP SCH ×2 (06:17→16:42)
[2020-02-03] MEDS: Potassium Phosphate 44 MEQ in 0.9 % Sodium Chloride 250 ML IVPB PRN (06:21)
[2020-02-03] MEDS: Norepinephrine 4 MG/254 ML IV.SOLN IVC SCH (06:55)
[2020-02-03] MEDS: Calcium Gluconate 1gm/50mL 1 GM/50 ML BAG IVPB PRN ×3 (06:55→23:52)
[2020-02-03] MEDS: Sodium Bicarbonate 50 MEQ in 0.45 % Sodium Chloride 1,000 ML IVC SCH ×2 (08:06→19:20)
[2020-02-03] MEDS: Vancomycin Oral Soln 125 MG/2.5 ML UDC PO SCH ×4 (09:14→21:06)
[2020-02-03] MEDS: *HR* Promethazine 25 MG/ML VIAL IM PRN ×2 (09:45→16:43)
[2020-02-03 14:11] LABS: VBG Ionized Calcium 0.96 mmol/L (1.15-1.35)
[2020-02-03 14:20] LABS: Phosphorous 3.3 mg/dL (2.7-4.5); Potassium 4.4 mEq/L (3.5-5.1)
[2020-02-03 17:13] LABS: Hemoglobin 10.1 g/dL (11.5-15.4)
[2020-02-03 21:28] LABS: VBG Ionized Calcium 1.04 mmol/L (1.15-1.35)
[2020-02-04] MEDS: MetroNIDAZOLE 500 MG/100 ML 500 MG/100 ML BAG IVPB SCH ×3 (01:05→17:13)
[2020-02-04 03:42] LABS: Mean Corpuscular Hemoglobin 27.8 pg (28.0-33.3); Mean Platelet Volume 9.3 fL (9.4-12.4)
[2020-02-04 03:44] LABS: Hematocrit 30.5 % (35.3-44.9); Hemoglobin 9.7 g/dL (11.5-15.4); Immature Platelets 1.9 % (1.1-6.1); Mean Corpuscular HGB Conc 31.8 g/dL (31.6-35.5); Mean Corpuscular Volume 87.4 fL (83.0-100.0); Red Blood Count 3.49 M/mcL (3.82-4.97); Red Cell Distribution Width 18.7 % (11.5-14.5); White Blood Count 4.8 K/mcL (4.3-11.1)
[2020-02-04 03:45] LABS: Platelet Count 97 K/mcL (140-400)
[2020-02-04 03:45] LABS: VBG Ionized Calcium 1.07 mmol/L (1.15-1.35)
[2020-02-04 04:01] LABS: Anisocytosis 1+ (Not Present); Lymphocytes # 1.8 K/mcL (0.6-4.6); Monocytes # 0.6 K/mcL (0.0-1.3); Neutrophils # 2.3 K/mcL (1.6-8.9); Reactive Lymphocytes Present (Not Present)
[2020-02-04 04:02] LABS: BUN/Creatinine Ratio 28 (6-26); Blood Urea Nitrogen 18 mg/dL (8-23); Calcium 7.1 mg/dL (8.6-10.3); Carbon Dioxide 22 mEq/L (23-29); Chloride 111 mEq/L (98-107); Glucose 74 mg/dL (70-105); Magnesium 1.7 mg/dL (1.6-2.6); Osmolality,Calculated 291 (280-300); Phosphorous 1.8 mg/dL (2.7-4.5); Platelet Estimate Slight Decrease (Normal); Sodium 140 mEq/L (136-145); eGFR For African Americans > 60 (> 60); eGFR For Non-African Americans > 60 (> 60)
[2020-02-04] MEDS: Pantoprazole 40 MG VIAL IVP SCH ×2 (05:34→17:13)
[2020-02-04] MEDS: Calcium Gluconate 1gm/50mL 1 GM/50 ML BAG IVPB PRN ×2 (05:34→21:16)
[2020-02-04] MEDS: Potassium Phosphate 44 MEQ in 0.9 % Sodium Chloride 250 ML IVPB PRN ×2 (06:33→21:16)
[2020-02-04] MEDS: Sodium Bicarbonate 50 MEQ in 0.45 % Sodium Chloride 1,000 ML IVC SCH ×2 (06:34→17:15)
[2020-02-04] MEDS: Vancomycin Oral Soln 125 MG/2.5 ML UDC PO SCH ×4 (09:25→21:16)
[2020-02-04 09:28] LABS: INR 2.1
[2020-02-04 18:32] LABS: VBG Ionized Calcium 0.98 mmol/L (1.15-1.35)
[2020-02-04 18:52] LABS: Magnesium 1.7 mg/dL (1.6-2.6); Phosphorous 2.7 mg/dL (2.7-4.5)
[2020-02-05] MEDS: MetroNIDAZOLE 500 MG/100 ML 500 MG/100 ML BAG IVPB SCH ×3 (01:32→17:47)
[2020-02-05] MEDS: Sodium Bicarbonate 50 MEQ in 0.45 % Sodium Chloride 1,000 ML IVC SCH (04:00)
[2020-02-05 04:28] LABS: Hematocrit 30.6 % (35.3-44.9); Hemoglobin 9.7 g/dL (11.5-15.4); Mean Corpuscular HGB Conc 31.7 g/dL (31.6-35.5); Mean Corpuscular Hemoglobin 27.8 pg (28.0-33.3); Mean Corpuscular Volume 87.7 fL (83.0-100.0); Red Blood Count 3.49 M/mcL (3.82-4.97); Red Cell Distribution Width 18.8 % (11.5-14.5)
[2020-02-05 04:29] LABS: VBG Ionized Calcium 0.96 mmol/L (1.15-1.35)
[2020-02-05 04:31] LABS: INR 2.1; Immature Platelets 2.1 % (1.1-6.1); Mean Platelet Volume 9.3 fL (9.4-12.4); Nucleated Red Blood Cells 0.4 /100 WBC (0); Prothrombin Time 23.7 Seconds (9.4-12.1); White Blood Count 5.4 K/mcL (4.3-11.1)
[2020-02-05 04:32] LABS: Platelet Count 92 K/mcL (140-400)
[2020-02-05 04:43] LABS: BUN/Creatinine Ratio 21 (6-26); Blood Urea Nitrogen 12 mg/dL (8-23); Calcium 6.7 mg/dL (8.6-10.3); Carbon Dioxide 20 mEq/L (23-29); Chloride 109 mEq/L (98-107); Glucose 60 mg/dL (70-105); Magnesium 1.9 mg/dL (1.6-2.6); Osmolality,Calculated 288 (280-300); Phosphorous 4.3 mg/dL (2.7-4.5); Potassium 4.7 mEq/L (3.5-5.1); Sodium 140 mEq/L (136-145); eGFR For African Americans > 60 (> 60); eGFR For Non-African Americans > 60 (> 60)
[2020-02-05] MEDS: *HR* Dextrose 50 % in Water (Vial) 50 ML VIAL IVP PRN ×2 (04:56→06:09)
[2020-02-05] MEDS: Calcium Gluconate 1gm/50mL 1 GM/50 ML BAG IVPB SCH ×2 (04:59→06:01)
[2020-02-05 05:08] LABS: Lymphocytes # 0.8 K/mcL (0.6-4.6); Monocytes # 0.1 K/mcL (0.0-1.3); Neutrophils # 4.5 K/mcL (1.6-8.9); Platelet Estimate Slight Decrease (Normal); Reactive Lymphocytes Present (Not Present)
[2020-02-05] MEDS: Pantoprazole 40 MG VIAL IVP SCH (05:57)
[2020-02-05] MEDS: D5% in Water 1,000 ML IVC PRN (06:09)
[2020-02-05] MEDS: Vancomycin Oral Soln 125 MG/2.5 ML UDC PO SCH ×4 (09:17→20:26)
[2020-02-05] MEDS ORDERED: Furosemide 20 MG/2 ML VIAL IVP ONE (09:52)
[2020-02-05 10:14] LABS: Alanine Aminotransferase 24 Units/L (7-52); Albumin/Globulin Ratio 1.1 (1.1-2.2); Alkaline Phosphatase 78 Units/L (34-104); Aspartate Amino Transferase 11 Units/L (13-39); Bilirubin,Direct 0.1 mg/dL (0.0-0.2); Bilirubin,Indirect 0.3 mg/dL (0.0-1.0); Bilirubin,Total 0.4 mg/dL (0.3-1.0); Globulin 1.8 g/dL (2.4-3.5); Total Protein 3.8 g/dL (6.4-8.9)
[2020-02-05] MEDS: Norepinephrine 4 MG/254 ML IV.SOLN IVC SCH ×2 (11:43→20:56)
[2020-02-05] MEDS: Albumin 25% 25gram/100mL 25 GM/100 ML IV.SOLN IVPB SCH ×2 (19:39→23:24)
[2020-02-05] MEDS: Famotidine 400 MG/50 ML ORAL SUSPENSION PO SCH (20:26)
[2020-02-06] MEDS ORDERED: Albumin 25% 25gram/100mL 25 GM/100 ML IV.SOLN IVPB SCH
[2020-02-06] MEDS: MetroNIDAZOLE 500 MG/100 ML 500 MG/100 ML BAG IVPB SCH ×4 (00:50→23:46)
[2020-02-06] MEDS: Albumin 25% 25gram/100mL 25 GM/100 ML IV.SOLN IVPB SCH ×3 (03:12→23:47)
[2020-02-06 03:56] LABS: Eosinophils # 0.1 K/mcL (0.0-0.6); Hematocrit 26.7 % (35.3-44.9); Hemoglobin 8.6 g/dL (11.5-15.4); Mean Corpuscular HGB Conc 32.2 g/dL (31.6-35.5); Mean Corpuscular Hemoglobin 28.8 pg (28.0-33.3); Mean Corpuscular Volume 89.3 fL (83.0-100.0); Monocytes # 0.4 K/mcL (0.0-1.3); Nucleated Red Blood Cells 0.4 /100 WBC (0); Red Blood Count 2.99 M/mcL (3.82-4.97); Red Cell Distribution Width 18.6 % (11.5-14.5); White Blood Count 5.5 K/mcL (4.3-11.1)
[2020-02-06 03:57] LABS: VBG Ionized Calcium 0.97 mmol/L (1.15-1.35)
[2020-02-06 03:58] LABS: Platelet Count 76 K/mcL (140-400)
[2020-02-06 04:04] LABS: INR 2.6; Prothrombin Time 29.8 Seconds (9.4-12.1)
[2020-02-06 04:18] LABS: BUN/Creatinine Ratio 15 (6-26); Blood Urea Nitrogen 10 mg/dL (8-23); Calcium 7.4 mg/dL (8.6-10.3); Carbon Dioxide 21 mEq/L (23-29); Chloride 107 mEq/L (98-107); Glucose 90 mg/dL (70-105); Osmolality,Calculated 287 (280-300); Potassium 3.7 mEq/L (3.5-5.1); Sodium 139 mEq/L (136-145); eGFR For African Americans > 60 (> 60); eGFR For Non-African Americans > 60 (> 60)
[2020-02-06 04:19] LABS: Magnesium 1.7 mg/dL (1.6-2.6); Phosphorous 2.3 mg/dL (2.7-4.5)
[2020-02-06 04:23] LABS: Anisocytosis 1+ (Not Present); Platelet Estimate Decreased (Normal); Reactive Lymphocytes Present (Not Present)
[2020-02-06] MEDS: Calcium Gluconate 1gm/50mL 1 GM/50 ML BAG IVPB PRN ×2 (04:44→16:44)
[2020-02-06] MEDS: Potassium Chloride 40 MEQ/200 ML BAG IVPB PRN ×2 (04:44→05:54)
[2020-02-06] MEDS: Potassium Phosphate 44 MEQ in 0.9 % Sodium Chloride 250 ML IVPB PRN (05:53)
[2020-02-06] MEDS: Vancomycin Oral Soln 125 MG/2.5 ML UDC PO SCH ×4 (08:15→20:29)
[2020-02-06] MEDS: Famotidine 400 MG/50 ML ORAL SUSPENSION PO SCH ×2 (09:26→20:29)
[2020-02-06] MEDS ORDERED: D10% in Water 500 ML IVC PRN (13:39)
[2020-02-06 16:22] LABS: VBG Ionized Calcium 1.03 mmol/L (1.15-1.35)
[2020-02-06] MEDS: Insulin LISPRO 300 UNITS/3 ML VIAL SUBQ SCH ×3 (16:48→23:47)
[2020-02-06 16:57] LABS: Magnesium 2.1 mg/dL (1.6-2.6); Phosphorous 3.2 mg/dL (2.7-4.5); Potassium 4.4 mEq/L (3.5-5.1)
[2020-02-06] MEDS ORDERED: Clinimix E 5%-15% SOLUTION 2,000 ML IVC SCH (17:00)
[2020-02-06] MEDS: Ondansetron 4 MG/2 ML VIAL IVP PRN (17:16)
[2020-02-06] MEDS: D5% in Water 1,000 ML IVC PRN (22:04)
[2020-02-07] MEDS: Insulin LISPRO 300 UNITS/3 ML VIAL SUBQ SCH ×5 (03:53→20:16)
[2020-02-07 04:28] LABS: Hematocrit 26.2 % (35.3-44.9); Hemoglobin 8.2 g/dL (11.5-15.4); Mean Corpuscular HGB Conc 31.3 g/dL (31.6-35.5)
[2020-02-07 04:29] LABS: INR 2.1; Immature Platelets 1.9 % (1.1-6.1); Mean Corpuscular Hemoglobin 27.9 pg (28.0-33.3); Mean Corpuscular Volume 89.1 fL (83.0-100.0); Mean Platelet Volume 9.2 fL (9.4-12.4); Nucleated Red Blood Cells 1.1 /100 WBC (0); Prothrombin Time 23.4 Seconds (9.4-12.1); Red Blood Count 2.94 M/mcL (3.82-4.97); Red Cell Distribution Width 18.7 % (11.5-14.5); White Blood Count 4.7 K/mcL (4.3-11.1)
[2020-02-07 04:38] LABS: Platelet Count 77 K/mcL (140-400)
[2020-02-07 04:42] LABS: BUN/Creatinine Ratio 12 (6-26); Blood Urea Nitrogen 8 mg/dL (8-23); Calcium 7.9 mg/dL (8.6-10.3); Carbon Dioxide 22 mEq/L (23-29); Chloride 106 mEq/L (98-107); Glucose 173 mg/dL (70-105); Magnesium 1.9 mg/dL (1.6-2.6); Osmolality,Calculated 284 (280-300); Phosphorous 2.1 mg/dL (2.7-4.5); Sodium 136 mEq/L (136-145); Triglycerides 168 mg/dL (< 150); eGFR For African Americans > 60 (> 60); eGFR For Non-African Americans > 60 (> 60)
[2020-02-07 05:02] LABS: Anisocytosis 1+ (Not Present); Eosinophils # 0.3 K/mcL (0.0-0.6); Lymphocytes # 1.5 K/mcL (0.6-4.6); Microcytosis Present (Not Present); Monocytes # 0.4 K/mcL (0.0-1.3); Neutrophils # 2.2 K/mcL (1.6-8.9); Platelet Estimate Decreased (Normal)
[2020-02-07] MEDS: Potassium Phosphate 44 MEQ in 0.9 % Sodium Chloride 250 ML IVPB PRN (06:55)
[2020-02-07] MEDS ORDERED: *HR* Dextrose 50 % in Water (Vial) 50 ML VIAL IVP PRN (07:39)
[2020-02-07] MEDS ORDERED: Naloxone 0.4 MG/ML INJ IVP PRN (07:39)
[2020-02-07] MEDS ORDERED: Dextrose Gel 15 GM/37.5 ML TUBE PO PRN ×2 (07:39)
[2020-02-07] MEDS ORDERED: D5% in Water 1,000 ML IVC PRN (07:39)
[2020-02-07] MEDS ORDERED: Clinimix E 5%-15% SOLUTION 2,000 ML IVC SCH (07:39)
[2020-02-07] MEDS ORDERED: Ondansetron 4 MG/2 ML VIAL IVP PRN (07:39)
[2020-02-07] MEDS ORDERED: *HR* Phytonadione 5 MG TABLET PO ONE (07:51)
[2020-02-07] MEDS: *HR* Promethazine 25 MG/ML VIAL IM PRN ×2 (09:23→15:06)
[2020-02-07] MEDS: Vancomycin Oral Soln 125 MG/2.5 ML UDC PO SCH ×4 (09:23→20:17)
[2020-02-07] MEDS: Albumin 25% 25gram/100mL 25 GM/100 ML IV.SOLN IVPB SCH ×2 (09:24→15:06)
[2020-02-07] MEDS: MetroNIDAZOLE 500 MG/100 ML 500 MG/100 ML BAG IVPB SCH ×2 (09:25→17:05)
[2020-02-07] MEDS: Famotidine 400 MG/50 ML ORAL SUSPENSION PO SCH ×2 (09:25→20:16)
[2020-02-07] MEDS ORDERED: Clinimix E 5%-15% SOLUTION 2,000 ML with MVI, adult with vitamin K 10 ML IVC SCH (17:00)
[2020-02-08] MEDS: Albumin 25% 25gram/100mL 25 GM/100 ML IV.SOLN IVPB SCH ×4 (02:39→23:47)
[2020-02-08] MEDS: MetroNIDAZOLE 500 MG/100 ML 500 MG/100 ML BAG IVPB SCH ×3 (02:40→17:31)
[2020-02-08] MEDS: Insulin LISPRO 300 UNITS/3 ML VIAL SUBQ SCH ×6 (02:46→20:26)
[2020-02-08 04:58] LABS: Hematocrit 24.9 % (35.3-44.9); Hemoglobin 7.7 g/dL (11.5-15.4); Immature Platelets 3.1 % (1.1-6.1); Mean Corpuscular HGB Conc 30.9 g/dL (31.6-35.5); Mean Corpuscular Hemoglobin 27.9 pg (28.0-33.3); Mean Corpuscular Volume 90.2 fL (83.0-100.0); Mean Platelet Volume 9.2 fL (9.4-12.4); Monocytes # 0.3 K/mcL (0.0-1.3); Red Blood Count 2.76 M/mcL (3.82-4.97); Red Cell Distribution Width 18.6 % (11.5-14.5); White Blood Count 4.9 K/mcL (4.3-11.1)
[2020-02-08 05:01] LABS: INR 1.4; Prothrombin Time 15.6 Seconds (9.4-12.1)
[2020-02-08 05:02] LABS: Platelet Count 61 K/mcL (140-400)
[2020-02-08 05:13] LABS: BUN/Creatinine Ratio 16 (6-26); Blood Urea Nitrogen 9 mg/dL (8-23); Calcium 8.8 mg/dL (8.6-10.3); Carbon Dioxide 24 mEq/L (23-29); Chloride 105 mEq/L (98-107); Glucose 160 mg/dL (70-105); Magnesium 1.7 mg/dL (1.6-2.6); Osmolality,Calculated 286 (280-300); Phosphorous 1.6 mg/dL (2.7-4.5); Potassium 3.5 mEq/L (3.5-5.1); Sodium 137 mEq/L (136-145); eGFR For African Americans > 60 (> 60); eGFR For Non-African Americans > 60 (> 60)
[2020-02-08 06:05] LABS: Basophils # 0.1 K/mcL (0.0-0.2); Eosinophils # 0.4 K/mcL (0.0-0.6); Lymphocytes # 1.1 K/mcL (0.6-4.6); Neutrophils # 2.7 K/mcL (1.6-8.9)
[2020-02-08 06:06] LABS: Platelet Estimate Decreased (Normal)
[2020-02-08] MEDS ORDERED: *HR* Heparin 5,000 UNIT/ML VIAL IVP PRN ×2 (06:57)
[2020-02-08] MEDS ORDERED: Heparin 25,000UNIT/250ML 1/2NS 25,000 UNIT/250 ML IV.SOLN IVC SCH (07:00)
[2020-02-08] MEDS ORDERED: Potassium Phosphate 44 MEQ in 0.9 % Sodium Chloride 250 ML IVPB ONE (08:19)
[2020-02-08] MEDS: Heparin 25,000UNIT/250ML 1/2NS 25,000 UNIT/250 ML IV.SOLN IVC SCH (09:22)
[2020-02-08] MEDS: Vancomycin Oral Soln 125 MG/2.5 ML UDC PO SCH ×4 (09:25→22:03)
[2020-02-08] MEDS: Famotidine 400 MG/50 ML ORAL SUSPENSION PO SCH ×3 (09:25→20:21)
[2020-02-08 10:01] LABS: Hemoglobin 8.1 g/dL (11.5-15.4)
[2020-02-08 10:03] LABS: Immature Platelets 2.8 % (1.1-6.1); Mean Corpuscular HGB Conc 31.2 g/dL (31.6-35.5); Mean Corpuscular Hemoglobin 28.2 pg (28.0-33.3); Mean Corpuscular Volume 90.6 fL (83.0-100.0); Mean Platelet Volume 9.6 fL (9.4-12.4); Red Blood Count 2.87 M/mcL (3.82-4.97); Red Cell Distribution Width 18.4 % (11.5-14.5); White Blood Count 5.3 K/mcL (4.3-11.1)
[2020-02-08 10:11] LABS: Heparin anti-factor XA UFH 0.19 IU/mL (0.30-0.70); INR 1.3; Prothrombin Time 14.4 Seconds (9.4-12.1)
[2020-02-08] MEDS: Acetaminophen 325 MG TABLET PO PRN ×2 (11:56→23:47)
[2020-02-08] MEDS ORDERED: Clinimix E 5%-15% SOLUTION 2,000 ML IVC SCH (17:00)
[2020-02-09] MEDS: MetroNIDAZOLE 500 MG/100 ML 500 MG/100 ML BAG IVPB SCH ×3 (00:46→16:54)
[2020-02-09] MEDS: Insulin LISPRO 300 UNITS/3 ML VIAL SUBQ SCH ×6 (00:49→20:51)
[2020-02-09] MEDS: Heparin 25,000UNIT/250ML 1/2NS 25,000 UNIT/250 ML IV.SOLN IVC SCH (01:01)
[2020-02-09 03:49] LABS: Nucleated Red Blood Cells 0.5 /100 WBC (0)
[2020-02-09 03:51] LABS: Hemoglobin 6.8 g/dL (11.5-15.4); Immature Platelets 3.8 % (1.1-6.1); Mean Corpuscular HGB Conc 30.9 g/dL (31.6-35.5); Mean Corpuscular Hemoglobin 28.3 pg (28.0-33.3); Mean Corpuscular Volume 91.7 fL (83.0-100.0); Mean Platelet Volume 9.6 fL (9.4-12.4); Monocytes # 0.3 K/mcL (0.0-1.3); Red Cell Distribution Width 18.5 % (11.5-14.5); White Blood Count 4.3 K/mcL (4.3-11.1)
[2020-02-09 03:52] LABS: Platelet Count 45 K/mcL (140-400)
[2020-02-09 03:54] LABS: INR 1.3; Prothrombin Time 14.4 Seconds (9.4-12.1)
[2020-02-09 04:09] LABS: BUN/Creatinine Ratio 20 (6-26); Blood Urea Nitrogen 11 mg/dL (8-23); Calcium 9.2 mg/dL (8.6-10.3); Carbon Dioxide 24 mEq/L (23-29); Chloride 108 mEq/L (98-107); Glucose 195 mg/dL (70-105); Magnesium 1.6 mg/dL (1.6-2.6); Osmolality,Calculated 293 (280-300); Phosphorous 2.5 mg/dL (2.7-4.5); Potassium 3.8 mEq/L (3.5-5.1); Sodium 139 mEq/L (136-145); eGFR For African Americans > 60 (> 60); eGFR For Non-African Americans > 60 (> 60)
[2020-02-09 04:42] LABS: Platelet Estimate Decreased (Normal)
[2020-02-09] MEDS: Albumin 25% 25gram/100mL 25 GM/100 ML IV.SOLN IVPB SCH ×2 (08:04→16:52)
[2020-02-09] MEDS: Acetaminophen 325 MG TABLET PO PRN ×2 (08:04→16:54)
[2020-02-09] MEDS: Famotidine 400 MG/50 ML ORAL SUSPENSION PO SCH ×2 (08:05→21:00)
[2020-02-09] MEDS: Vancomycin Oral Soln 125 MG/2.5 ML UDC PO SCH ×4 (08:05→20:52)
[2020-02-09] MEDS ORDERED: 0.9 % Sodium Chloride 250 ML ONE ×2 (08:23→11:48)
[2020-02-09] MEDS ORDERED: Potassium Phosphate 44 MEQ in 0.9 % Sodium Chloride 250 ML IVPB ONE (09:50)
[2020-02-09] MEDS ORDERED: Perflutren Lipid Microsphere 1.3 ML in 0.9 % Sodium Chloride 8.7 ML IVP PRN (10:25)
[2020-02-09] MEDS: Pantoprazole 40 MG VIAL IVP SCH ×2 (12:04→16:53)
[2020-02-09] MEDS ORDERED: Furosemide 40 MG/4 ML VIAL IVP ONE (14:36)
[2020-02-09] MEDS ORDERED: Clinimix E 5%-15% SOLUTION 2,000 ML with MVI, adult with vitamin K 10 ML IVC SCH (17:00)
[2020-02-09 17:50] LABS: Hematocrit 29.5 % (35.3-44.9)
[2020-02-09 17:51] LABS: Hemoglobin 9.4 g/dL (11.5-15.4)
[2020-02-09 18:26] LABS: Ferritin 530 ng/mL (10-120); Iron 51 mcg/dL (50-170); Transferrin < 75 mg/dL (203-362)
[2020-02-10] MEDS: Albumin 25% 25gram/100mL 25 GM/100 ML IV.SOLN IVPB SCH ×4 (00:58→23:59)
[2020-02-10] MEDS: Insulin LISPRO 300 UNITS/3 ML VIAL SUBQ SCH ×6 (00:58→21:38)
[2020-02-10] MEDS: MetroNIDAZOLE 500 MG/100 ML 500 MG/100 ML BAG IVPB SCH ×3 (01:31→21:58)
[2020-02-10 04:24] LABS: Mean Corpuscular Volume 88.7 fL (83.0-100.0); Nucleated Red Blood Cells 0.5 /100 WBC (0)
[2020-02-10 04:26] LABS: Hematocrit 26.6 % (35.3-44.9); Hemoglobin 8.8 g/dL (11.5-15.4); INR 1.3; Immature Platelets 4.6 % (1.1-6.1); Mean Corpuscular HGB Conc 33.1 g/dL (31.6-35.5); Mean Corpuscular Hemoglobin 29.3 pg (28.0-33.3); Mean Platelet Volume 10.1 fL (9.4-12.4); Prothrombin Time 14.8 Seconds (9.4-12.1); Red Cell Distribution Width 17.2 % (11.5-14.5); White Blood Count 7.4 K/mcL (4.3-11.1)
[2020-02-10 04:27] LABS: Platelet Count 46 K/mcL (140-400)
[2020-02-10 04:39] LABS: BUN/Creatinine Ratio 25 (6-26); Blood Urea Nitrogen 15 mg/dL (8-23); Calcium 9.5 mg/dL (8.6-10.3); Carbon Dioxide 25 mEq/L (23-29); Chloride 105 mEq/L (98-107); Glucose 219 mg/dL (70-105); Magnesium 1.6 mg/dL (1.6-2.6); Osmolality,Calculated 296 (280-300); Phosphorous 3.4 mg/dL (2.7-4.5); Potassium 3.6 mEq/L (3.5-5.1); Sodium 139 mEq/L (136-145); eGFR For African Americans > 60 (> 60); eGFR For Non-African Americans > 60 (> 60)
[2020-02-10 04:56] LABS: Anisocytosis 1+ (Not Present); Eosinophils # 0.4 K/mcL (0.0-0.6); Microcytosis Present (Not Present); Monocytes # 0.4 K/mcL (0.0-1.3); Neutrophils # 5.5 K/mcL (1.6-8.9); Platelet Estimate Decreased (Normal); Reactive Lymphocytes Present (Not Present)
[2020-02-10] MEDS: Pantoprazole 40 MG VIAL IVP SCH ×2 (05:29→17:58)
[2020-02-10] MEDS: Folic Acid 1 MG TABLET PO SCH (07:44)
[2020-02-10] MEDS: Furosemide 20 MG/2 ML VIAL IVP SCH ×2 (07:46→21:37)
[2020-02-10] MEDS: Vancomycin Oral Soln 125 MG/2.5 ML UDC PO SCH ×4 (07:47→21:36)
[2020-02-10] MEDS: Famotidine 400 MG/50 ML ORAL SUSPENSION PO SCH ×2 (07:48→21:36)
[2020-02-10] MEDS ORDERED: Isovue-370 500 ML BOTTLE IVP ONE (16:11)
[2020-02-10] MEDS ORDERED: Heparin 25,000UNIT/250ML 1/2NS 25,000 UNIT/250 ML IV.SOLN IVC SCH (16:15)
[2020-02-10] MEDS ORDERED: Clinimix E 5%-15% SOLUTION 2,000 ML IVC SCH (17:00)
[2020-02-10 18:18] LABS: Hematocrit 27.5 % (35.3-44.9); Mean Platelet Volume 9.5 fL (9.4-12.4)
[2020-02-10 18:20] LABS: Hemoglobin 8.8 g/dL (11.5-15.4); Immature Platelets 5.3 % (1.1-6.1); Mean Corpuscular Hemoglobin 28.4 pg (28.0-33.3); Mean Corpuscular Volume 88.7 fL (83.0-100.0); Red Blood Count 3.1 M/mcL (3.82-4.97); Red Cell Distribution Width 17.3 % (11.5-14.5); White Blood Count 8.2 K/mcL (4.3-11.1)
[2020-02-10 18:42] LABS: Heparin anti-factor XA UFH 0.07 IU/mL (0.30-0.70); INR 1.2; Prothrombin Time 13.7 Seconds (9.4-12.1)
[2020-02-10] MEDS ORDERED: 0.9 % Sodium Chloride 500 ML ONE (20:16)
[2020-02-10] MEDS ORDERED: 0.9 % Sodium Chloride 500 ML IVC ONE (20:27)
[2020-02-10] MEDS ORDERED: Amiodarone Premix 150 MG/100 ML BAG IVPB ONE (21:15)
[2020-02-10] MEDS ORDERED: Amiodarone Premix 360 MG/200 ML BAG IVC ONE (21:15)
[2020-02-11] MEDS: Insulin LISPRO 300 UNITS/3 ML VIAL SUBQ SCH ×6 (00:13→21:20)
[2020-02-11 00:54] LABS: Mean Corpuscular Volume 88.7 fL (83.0-100.0)
[2020-02-11 00:56] LABS: Hematocrit 25.1 % (35.3-44.9); Hemoglobin 8.1 g/dL (11.5-15.4); INR 1.4; Immature Platelets 6.3 % (1.1-6.1); Mean Corpuscular HGB Conc 32.3 g/dL (31.6-35.5); Mean Corpuscular Hemoglobin 28.6 pg (28.0-33.3); Mean Platelet Volume 10.6 fL (9.4-12.4); Nucleated Red Blood Cells 1.4 /100 WBC (0); Prothrombin Time 15.9 Seconds (9.4-12.1); Red Blood Count 2.83 M/mcL (3.82-4.97); Red Cell Distribution Width 17.3 % (11.5-14.5); White Blood Count 9.5 K/mcL (4.3-11.1)
[2020-02-11 01:03] LABS: BUN/Creatinine Ratio 31 (6-26); Blood Urea Nitrogen 20 mg/dL (8-23); Calcium 9.4 mg/dL (8.6-10.3); Carbon Dioxide 26 mEq/L (23-29); Chloride 101 mEq/L (98-107); Glucose 209 mg/dL (70-105); Magnesium 1.4 mg/dL (1.6-2.6); Osmolality,Calculated 295 (280-300); Phosphorous 2.9 mg/dL (2.7-4.5); Platelet Count 42 K/mcL (140-400); Potassium 3.1 mEq/L (3.5-5.1); Sodium 138 mEq/L (136-145); eGFR For African Americans > 60 (> 60); eGFR For Non-African Americans > 60 (> 60)
[2020-02-11 01:05] LABS: Heparin anti-factor XA UFH 1.1 IU/mL (0.30-0.70)
[2020-02-11] MEDS: MetroNIDAZOLE 500 MG/100 ML 500 MG/100 ML BAG IVPB SCH ×3 (01:17→16:54)
[2020-02-11 01:32] LABS: Anisocytosis 1+ (Not Present); Lymphocytes # 1.9 K/mcL (0.6-4.6); Neutrophils # 6.7 K/mcL (1.6-8.9); Platelet Estimate Marked Decrease (Normal)
[2020-02-11 01:33] LABS: Reactive Lymphocytes Present (Not Present)
[2020-02-11] MEDS: Amiodarone Premix 360 MG/200 ML BAG IVC SCH ×2 (04:01→15:07)
[2020-02-11] MEDS: Pantoprazole 40 MG VIAL IVP SCH ×2 (05:29→16:53)
[2020-02-11] MEDS ORDERED: *HR* Heparin 5,000 UNIT/ML VIAL IVP PRN ×2 (05:48)
[2020-02-11] MEDS: Heparin 25,000UNIT/250ML 1/2NS 25,000 UNIT/250 ML IV.SOLN IVC SCH (06:03)
[2020-02-11] MEDS: Albumin 25% 25gram/100mL 25 GM/100 ML IV.SOLN IVPB SCH ×2 (08:51→15:07)
[2020-02-11] MEDS: Famotidine 400 MG/50 ML ORAL SUSPENSION PO SCH ×2 (08:53→21:11)
[2020-02-11] MEDS: Vancomycin Oral Soln 125 MG/2.5 ML UDC PO SCH ×4 (08:53→21:11)
[2020-02-11] MEDS: Folic Acid 1 MG TABLET PO SCH (08:54)
[2020-02-11] MEDS: Potassium Chloride Elixir 20 MEQ/15 ML UDC PO SCH ×2 (08:54→11:27)
[2020-02-11] MEDS: Furosemide 20 MG/2 ML VIAL IVP SCH ×2 (08:55→21:11)
[2020-02-11] MEDS ORDERED: Metoprolol XL (24 HR) Succ 25 MG TAB.ER.24H PO SCH (09:00)
[2020-02-11] MEDS ORDERED: 0.9 % Sodium Chloride 250 ML ONE ×3 (11:11→23:02)
[2020-02-11] MEDS ORDERED: Clinimix E 5%-15% SOLUTION 2,000 ML IVC SCH (17:00)
[2020-02-11 18:33] LABS: Hemoglobin 6.9 g/dL (11.5-15.4); Mean Corpuscular Volume 90.5 fL (83.0-100.0); Red Cell Distribution Width 17.6 % (11.5-14.5)
[2020-02-11 18:35] LABS: Basophils # 0.1 K/mcL (0.0-0.2); Eosinophils # 0.2 K/mcL (0.0-0.6); Eosinophils % 2.3 %; Hematocrit 21.8 % (35.3-44.9); Immature Granulocytes % 14.5 % (0-4); Immature Platelets 8.8 % (1.1-6.1); Lymphocytes # 1.6 K/mcL (0.6-4.6); Mean Corpuscular HGB Conc 31.7 g/dL (31.6-35.5); Mean Corpuscular Hemoglobin 28.6 pg (28.0-33.3); Mean Platelet Volume 11.3 fL (9.4-12.4); Monocytes # 0.9 K/mcL (0.0-1.3); Monocytes % 9.8 %; Neutrophils # 4.7 K/mcL (1.6-8.9); Nucleated Red Blood Cells 2.1 /100 WBC (0); Red Blood Count 2.41 M/mcL (3.82-4.97); Segmented Neutrophils % 54.4 %; White Blood Count 8.7 K/mcL (4.3-11.1)
[2020-02-11 18:48] LABS: Platelet Count 89 K/mcL (140-400)
[2020-02-11 18:59] LABS: Anisocytosis 1+ (Not Present); Hypochromasia Present (Not Present); Polychromasia 1+ (Not Present)
[2020-02-11 19:00] LABS: Platelet Estimate Decreased (Normal)
[2020-02-11] MEDS: Metoprolol XL (24 HR) Succ 25 MG TAB.ER.24H PO SCH (21:10)
[2020-02-11] MEDS: Acetaminophen 325 MG TABLET PO PRN (21:36)
[2020-02-12] MEDS: Insulin LISPRO 300 UNITS/3 ML VIAL SUBQ SCH ×4 (02:16→13:07)
[2020-02-12] MEDS: MetroNIDAZOLE 500 MG/100 ML 500 MG/100 ML BAG IVPB SCH ×2 (02:42→08:10)
[2020-02-12] MEDS: Albumin 25% 25gram/100mL 25 GM/100 ML IV.SOLN IVPB SCH (02:46)
[2020-02-12] MEDS: Amiodarone Premix 360 MG/200 ML BAG IVC SCH ×2 (03:09→21:52)
[2020-02-12 04:30] LABS: Hemoglobin 8.1 g/dL (11.5-15.4); Nucleated Red Blood Cells 1.5 /100 WBC (0)
[2020-02-12 04:32] LABS: Basophils # 0.1 K/mcL (0.0-0.2); Basophils % 1.5 %; Eosinophils # 0.2 K/mcL (0.0-0.6); Eosinophils % 2.6 %; Hematocrit 25.4 % (35.3-44.9); Immature Granulocytes % 16.8 % (0-4); Immature Platelets 8.9 % (1.1-6.1); Lymphocytes # 1.8 K/mcL (0.6-4.6); Mean Corpuscular HGB Conc 31.9 g/dL (31.6-35.5); Mean Corpuscular Hemoglobin 28.3 pg (28.0-33.3); Mean Corpuscular Volume 88.8 fL (83.0-100.0); Mean Platelet Volume 10.7 fL (9.4-12.4); Monocytes # 0.9 K/mcL (0.0-1.3); Monocytes % 9.8 %; Neutrophils # 4.7 K/mcL (1.6-8.9); Red Blood Count 2.86 M/mcL (3.82-4.97); Segmented Neutrophils % 50.3 %; White Blood Count 9.3 K/mcL (4.3-11.1)
[2020-02-12 04:34] LABS: Platelet Count 97 K/mcL (140-400)
[2020-02-12 04:47] LABS: BUN/Creatinine Ratio 38 (6-26); Blood Urea Nitrogen 25 mg/dL (8-23); Calcium 9.7 mg/dL (8.6-10.3); Carbon Dioxide 28 mEq/L (23-29); Chloride 102 mEq/L (98-107); Glucose 147 mg/dL (70-105); Magnesium 1.8 mg/dL (1.6-2.6); Osmolality,Calculated 295 (280-300); Phosphorous 2.2 mg/dL (2.7-4.5); Potassium 3.7 mEq/L (3.5-5.1); Sodium 139 mEq/L (136-145); eGFR For African Americans > 60 (> 60); eGFR For Non-African Americans > 60 (> 60)
[2020-02-12 04:48] LABS: Anisocytosis 1+ (Not Present); Platelet Estimate Slight Decrease (Normal); Polychromasia 1+ (Not Present)
[2020-02-12] MEDS: Pantoprazole 40 MG VIAL IVP SCH (05:49)
[2020-02-12] MEDS: Heparin 25,000UNIT/250ML 1/2NS 25,000 UNIT/250 ML IV.SOLN IVC SCH (05:53)
[2020-02-12] MEDS: Metoprolol XL (24 HR) Succ 25 MG TAB.ER.24H PO SCH (08:08)
[2020-02-12] MEDS: Vancomycin Oral Soln 125 MG/2.5 ML UDC PO SCH ×2 (08:09→13:07)
[2020-02-12] MEDS: Folic Acid 1 MG TABLET PO SCH (08:09)
[2020-02-12] MEDS: Furosemide 20 MG/2 ML VIAL IVP SCH (08:09)
[2020-02-12] MEDS: Famotidine 400 MG/50 ML ORAL SUSPENSION PO SCH (08:10)
[2020-02-12] MEDS ORDERED: D10% in Water 500 ML IVC PRN ×2 (10:29→20:35)
[2020-02-12] MEDS ORDERED: *HR* Midazolam HCl 2 MG/2 ML VIAL ONE (10:55)
[2020-02-12] MEDS ORDERED: *HR* FentaNYL (PF) 100 MCG/2 ML VIAL ONE ×2 (10:55→15:32)
[2020-02-12] MEDS ORDERED: *HR* Propofol 200 MG/20 ML VIAL IVP ONE (10:55)
[2020-02-12] MEDS ORDERED: *HR* Rocuronium Bromide 50 MG/5 ML VIAL ONE ×3 (10:57→17:37)
[2020-02-12] MEDS ORDERED: Ondansetron 4 MG/2 ML VIAL ONE (10:57)
[2020-02-12] MEDS ORDERED: Lidocaine -MPF 2% 2 ML VIAL ONE (10:57)
[2020-02-12] MEDS ORDERED: *HR* Succinylcholine 200 MG/10 ML VIAL IVP ONE (10:57)
[2020-02-12] MEDS ORDERED: Lidocaine HCL 4 ML Topical Solution (Laryng-O-Jet Kit Sterile Pak) TP ONE (10:57)
[2020-02-12] MEDS ORDERED: Albumin Human 5% 25.0 GM/500 ML IV.SOLN ONE (11:00)
[2020-02-12] MEDS ORDERED: Acetaminophen IV 1,000 MG/100 ML BAG IVPB ONE (11:01)
[2020-02-12] MEDS ORDERED: *HR* Vasopressin 20 UNIT/ML VIAL ONE (11:01)
[2020-02-12] MEDS ORDERED: CefOXitin 1,000 MG VIAL ONE ×2 (11:47→13:21)
[2020-02-12 12:59] LABS: Influenza A PCR Negative (Negative); Influenza B PCR Negative (Negative); Resp. Syncytial Virus PCR Negative (Negative)
[2020-02-12 13:11] LABS: SARS-CoV-2 by PCR (In House) Negative (Negative)
[2020-02-12] MEDS ORDERED: *HR* Phenylephrine 10 MG/ML VIAL ONE (14:28)
[2020-02-12] MEDS ORDERED: cefOXitin 2,000 MG in Water for inj. (sterile) 20 ML IVP ONE (14:37)
[2020-02-12] MEDS ORDERED: Dexamethasone 4 MG/ML VIAL ONE (14:52)
[2020-02-12] MEDS ORDERED: Heparin 1,000 UNITS/500 mL 500 ML ONE (15:07)
[2020-02-12 16:24] LABS: Hematocrit 27.1 % (35.3-44.9); Hemoglobin 8.9 g/dL (11.5-15.4)
[2020-02-12] MEDS ORDERED: Clinimix E 5%-15% SOLUTION 2,000 ML with MVI, adult with vitamin K 10 ML IVC SCH ×2 (17:00→20:35)
[2020-02-12] MEDS ORDERED: Ondansetron 4 MG/2 ML VIAL IVP PRN (19:10)
[2020-02-12] MEDS: *HR* FentaNYL (PF) 100 MCG/2 ML VIAL IVP PRN ×2 (19:46→20:02)
[2020-02-12] MEDS ORDERED: Ringers Solution, Lactated 1,000 ML ONE (19:50)
[2020-02-12] MEDS ORDERED: D5% in Water 1,000 ML IVC PRN (20:35)
[2020-02-12] MEDS ORDERED: Acetaminophen 325 MG TABLET PO PRN (20:35)
[2020-02-12] MEDS: 0.9 % Sodium Chloride 1,000 ML IVC SCH (21:51)
[2020-02-13] MEDS: Piperacillin/Tazobactam 3.375 GM in 0.9 % Sodium Chloride Mini Bag 100 ML IVPB SCH ×4 (00:07→23:42)
[2020-02-13] MEDS: Insulin LISPRO 300 UNITS/3 ML VIAL SUBQ SCH ×6 (01:35→20:19)
[2020-02-13] MEDS: Amiodarone Premix 360 MG/200 ML BAG IVC SCH ×2 (04:37→15:02)
[2020-02-13 04:54] LABS: Hematocrit 26.4 % (35.3-44.9); Hemoglobin 8.4 g/dL (11.5-15.4); Lymphocytes # 0.6 K/mcL (0.6-4.6); Mean Corpuscular HGB Conc 31.8 g/dL (31.6-35.5); Mean Corpuscular Hemoglobin 28.5 pg (28.0-33.3); Mean Corpuscular Volume 89.5 fL (83.0-100.0); Mean Platelet Volume 11.7 fL (9.4-12.4); Monocytes # 0.7 K/mcL (0.0-1.3); Nucleated Red Blood Cells 1.3 /100 WBC (0); Platelet Count 116 K/mcL (140-400); Red Blood Count 2.95 M/mcL (3.82-4.97); Red Cell Distribution Width 17.5 % (11.5-14.5); White Blood Count 9.1 K/mcL (4.3-11.1)
[2020-02-13 05:11] LABS: BUN/Creatinine Ratio 45 (6-26); Blood Urea Nitrogen 34 mg/dL (8-23); Calcium 8.6 mg/dL (8.6-10.3); Carbon Dioxide 25 mEq/L (23-29); Chloride 102 mEq/L (98-107); Glucose 459 mg/dL (70-105); Magnesium 1.6 mg/dL (1.6-2.6); Osmolality,Calculated 310 (280-300); Phosphorous 2.6 mg/dL (2.7-4.5); Potassium 3.8 mEq/L (3.5-5.1); Sodium 136 mEq/L (136-145); eGFR For African Americans > 60 (> 60); eGFR For Non-African Americans > 60 (> 60)
[2020-02-13] MEDS ORDERED: Insulin LISPRO 300 UNITS/3 ML VIAL SUBQ ONE (05:20)
[2020-02-13] MEDS ORDERED: Insulin Human Regular 10 UNIT in 0.9 % Sodium Chloride 10 ML IV ONE (08:29)
[2020-02-13 11:32] LABS: Anisocytosis 1+ (Not Present); Neutrophils # 6.6 K/mcL (1.6-8.9); Platelet Estimate Slight Decrease (Normal); Toxic Granulation Present (Not Present)
[2020-02-13 11:33] LABS: Basophilic Stippling 1+ (Not Present); Polychromasia 1+ (Not Present)
[2020-02-13] MEDS: 0.9 % Sodium Chloride 1,000 ML IVC SCH (12:31)
[2020-02-13] MEDS ORDERED: Clinimix E 5%-15% SOLUTION 2,000 ML with Trace Elements-5 Concentrate 1 ML IV SCH (17:00)
[2020-02-13] MEDS: Insulin DETEMIR 100 UNIT/ML X5UNITS SUBQ SCH (20:19)
[2020-02-14] MEDS: Insulin LISPRO 300 UNITS/3 ML VIAL SUBQ SCH ×6 (00:31→19:50)
[2020-02-14] MEDS: 0.9 % Sodium Chloride 1,000 ML IVC SCH ×2 (01:14→15:13)
[2020-02-14 04:47] LABS: Hematocrit 22.3 % (35.3-44.9); Hemoglobin 7.2 g/dL (11.5-15.4); Mean Corpuscular HGB Conc 32.3 g/dL (31.6-35.5); Mean Corpuscular Hemoglobin 29.1 pg (28.0-33.3); Mean Corpuscular Volume 90.3 fL (83.0-100.0); Mean Platelet Volume 11.1 fL (9.4-12.4); Nucleated Red Blood Cells 1.7 /100 WBC (0); Platelet Count 145 K/mcL (140-400); Red Blood Count 2.47 M/mcL (3.82-4.97); Red Cell Distribution Width 18.1 % (11.5-14.5); White Blood Count 12.7 K/mcL (4.3-11.1)
[2020-02-14 05:00] LABS: BUN/Creatinine Ratio 57 (6-26); Blood Urea Nitrogen 36 mg/dL (8-23); Calcium 8.9 mg/dL (8.6-10.3); Carbon Dioxide 25 mEq/L (23-29); Chloride 104 mEq/L (98-107); Glucose 246 mg/dL (70-105); Magnesium 1.5 mg/dL (1.6-2.6); Osmolality,Calculated 303 (280-300); Potassium 3.1 mEq/L (3.5-5.1); Sodium 138 mEq/L (136-145); eGFR For African Americans > 60 (> 60); eGFR For Non-African Americans > 60 (> 60)
[2020-02-14 05:25] LABS: Lymphocytes # 1.3 K/mcL (0.6-4.6); Monocytes # 1.5 K/mcL (0.0-1.3); Neutrophils # 9.9 K/mcL (1.6-8.9)
[2020-02-14 05:26] LABS: Anisocytosis 1+ (Not Present); Hypochromasia Present (Not Present); Platelet Estimate Normal (Normal); Polychromasia 1+ (Not Present)
[2020-02-14] MEDS ORDERED: Potassium Chloride Elixir 20 MEQ/15 ML UDC PO ONE (05:28)
[2020-02-14] MEDS: Amiodarone Premix 360 MG/200 ML BAG IVC SCH ×2 (06:13→15:13)
[2020-02-14] MEDS ORDERED: Potassium Chloride 40 MEQ, Lidocaine 1% 2 ML in 0.9 % Sodium Chloride 500 ML IVPB ONE (06:20)
[2020-02-14] MEDS: Piperacillin/Tazobactam 3.375 GM in 0.9 % Sodium Chloride Mini Bag 100 ML IVPB SCH ×2 (08:55→17:00)
[2020-02-14] MEDS ORDERED: 0.9 % Sodium Chloride 250 ML ONE (10:53)
[2020-02-14] MEDS ORDERED: Clinimix E 5%-15% SOLUTION 2,000 ML, Parenteral Amino Acid 10% 100 ML with MVI, adult ... IVC SCH (17:00)
[2020-02-14 17:05] LABS: Hematocrit 25.5 % (35.3-44.9); Hemoglobin 8.4 g/dL (11.5-15.4)
[2020-02-14 17:25] LABS: BUN/Creatinine Ratio 58 (6-26); Blood Urea Nitrogen 34 mg/dL (8-23); Calcium 8.8 mg/dL (8.6-10.3); Carbon Dioxide 25 mEq/L (23-29); Chloride 106 mEq/L (98-107); Glucose 241 mg/dL (70-105); Magnesium 1.9 mg/dL (1.6-2.6); Osmolality,Calculated 302 (280-300); Potassium 3.5 mEq/L (3.5-5.1); Sodium 138 mEq/L (136-145); eGFR For African Americans > 60 (> 60); eGFR For Non-African Americans > 60 (> 60)
[2020-02-14] MEDS: Insulin DETEMIR 100 UNIT/ML X5UNITS SUBQ SCH (19:51)
[2020-02-15] MEDS: Insulin LISPRO 300 UNITS/3 ML VIAL SUBQ SCH ×6 (00:06→20:43)
[2020-02-15] MEDS: Piperacillin/Tazobactam 3.375 GM in 0.9 % Sodium Chloride Mini Bag 100 ML IVPB SCH ×3 (00:06→16:57)
[2020-02-15] MEDS ORDERED: *HR* LORazepam 2 MG/ML VIAL ONE (01:17)
[2020-02-15] MEDS: Amiodarone Premix 360 MG/200 ML BAG IVC SCH (02:26)
[2020-02-15] MEDS: 0.9 % Sodium Chloride 1,000 ML IVC SCH (04:19)
[2020-02-15 04:23] LABS: Hematocrit 23.6 % (35.3-44.9); Hemoglobin 7.8 g/dL (11.5-15.4); Mean Corpuscular HGB Conc 33.1 g/dL (31.6-35.5); Mean Corpuscular Volume 87.7 fL (83.0-100.0); Mean Platelet Volume 10.7 fL (9.4-12.4); Monocytes # 0.7 K/mcL (0.0-1.3); Nucleated Red Blood Cells 1.2 /100 WBC (0); Platelet Count 158 K/mcL (140-400); Red Blood Count 2.69 M/mcL (3.82-4.97); Red Cell Distribution Width 18.9 % (11.5-14.5)
[2020-02-15 04:43] LABS: BUN/Creatinine Ratio 57 (6-26); Blood Urea Nitrogen 32 mg/dL (8-23); Calcium 8.5 mg/dL (8.6-10.3); Carbon Dioxide 24 mEq/L (23-29); Chloride 107 mEq/L (98-107); Glucose 197 mg/dL (70-105); Magnesium 1.9 mg/dL (1.6-2.6); Osmolality,Calculated 298 (280-300); Phosphorous 2.4 mg/dL (2.7-4.5); Potassium 3.3 mEq/L (3.5-5.1); Sodium 138 mEq/L (136-145); eGFR For African Americans > 60 (> 60); eGFR For Non-African Americans > 60 (> 60)
[2020-02-15 05:22] LABS: Lymphocytes # 1.7 K/mcL (0.6-4.6); Neutrophils # 9.6 K/mcL (1.6-8.9)
[2020-02-15 05:23] LABS: Anisocytosis 1+ (Not Present); Microcytosis Present (Not Present); Platelet Estimate Normal (Normal); Polychromasia 1+ (Not Present)
[2020-02-15] MEDS ORDERED: Potassium Phosphate 44 MEQ in 0.9 % Sodium Chloride 250 ML IVPB ONE (07:42)
[2020-02-15] MEDS ORDERED: *HR* OxyCODONE Immed Rel 5 MG TABLET PO PRN (08:59)
[2020-02-15 09:42] LABS: Estimated Average Glucose 140 mg/dl; Hemoglobin A1C 6.5 %
[2020-02-15] MEDS: *HR* Amiodarone 200 MG TABLET PO SCH ×2 (10:44→20:35)
[2020-02-15] MEDS: Metoprolol XL (24 HR) Succ 25 MG TAB.ER.24H PO SCH (11:45)
[2020-02-15] MEDS: Insulin DETEMIR 100 UNIT/ML X5UNITS SUBQ SCH ×2 (12:07→20:35)
[2020-02-15] MEDS ORDERED: CLINIMIX E IV SCH (17:00)
[2020-02-15] MEDS ORDERED: [UNRECOGNIZED DRUG - OTHER] IV SCH (17:00)
[2020-02-15] MEDS ORDERED: PARENTERAL AMINO ACID 10% IV SCH (17:00)
[2020-02-15 17:09] LABS: Hematocrit 23.9 % (35.3-44.9); Hemoglobin 7.7 g/dL (11.5-15.4)
[2020-02-16] MEDS: Piperacillin/Tazobactam 3.375 GM in 0.9 % Sodium Chloride Mini Bag 100 ML IVPB SCH ×4 (04:19→23:55)
[2020-02-16] MEDS: Insulin LISPRO 300 UNITS/3 ML VIAL SUBQ SCH ×6 (04:49→21:06)
[2020-02-16 04:53] LABS: Hematocrit 24.1 % (35.3-44.9); Hemoglobin 7.6 g/dL (11.5-15.4); Mean Corpuscular HGB Conc 31.5 g/dL (31.6-35.5); Mean Corpuscular Hemoglobin 27.6 pg (28.0-33.3); Mean Corpuscular Volume 87.6 fL (83.0-100.0); Mean Platelet Volume 10.1 fL (9.4-12.4); Nucleated Red Blood Cells 1.5 /100 WBC (0); Platelet Count 184 K/mcL (140-400); Red Blood Count 2.75 M/mcL (3.82-4.97); Red Cell Distribution Width 19.1 % (11.5-14.5); White Blood Count 12.3 K/mcL (4.3-11.1)
[2020-02-16 05:14] LABS: BUN/Creatinine Ratio 57 (6-26); Blood Urea Nitrogen 31 mg/dL (8-23); Calcium 8.6 mg/dL (8.6-10.3); Carbon Dioxide 23 mEq/L (23-29); Chloride 107 mEq/L (98-107); Glucose 216 mg/dL (70-105); Osmolality,Calculated 297 (280-300); Phosphorous 3.4 mg/dL (2.7-4.5); Potassium 3.9 mEq/L (3.5-5.1); Sodium 137 mEq/L (136-145); eGFR For African Americans > 60 (> 60); eGFR For Non-African Americans > 60 (> 60)
[2020-02-16 05:25] LABS: Anisocytosis 1+ (Not Present); Eosinophils # 0.3 K/mcL (0.0-0.6); Lymphocytes # 1.2 K/mcL (0.6-4.6); Microcytosis Present (Not Present); Monocytes # 0.5 K/mcL (0.0-1.3); Neutrophils # 10.3 K/mcL (1.6-8.9); Platelet Estimate Normal (Normal)
[2020-02-16 05:43] LABS: Magnesium 1.9 mg/dL (1.6-2.6)
[2020-02-16] MEDS ORDERED: 0.9 % Sodium Chloride 250 ML IVC ONE (07:34)
[2020-02-16] MEDS: *HR* Amiodarone 200 MG TABLET PO SCH ×2 (09:16→21:03)
[2020-02-16] MEDS: Insulin DETEMIR 100 UNIT/ML X5UNITS SUBQ SCH ×2 (09:17→21:05)
[2020-02-16] MEDS ORDERED: D10% in Water 500 ML IVC PRN ×2 (11:17→11:18)
[2020-02-16 15:43] LABS: Hemoglobin 7.4 g/dL (11.5-15.4)
[2020-02-16] MEDS: Iron Sucrose Complex 200 MG in 0.9 % Sodium Chloride 100 ML IVPB SCH (16:54)
[2020-02-16] MEDS ORDERED: Clinimix E 5%-15% SOLUTION 2,000 ML, Parenteral Amino Acid 10% 100 ML with MVI, adult ... IVC SCH (17:00)
[2020-02-17] MEDS: Insulin LISPRO 300 UNITS/3 ML VIAL SUBQ SCH ×6 (00:22→21:03)
[2020-02-17 06:16] LABS: Hematocrit 23.5 % (35.3-44.9); Hemoglobin 7.6 g/dL (11.5-15.4); Mean Corpuscular HGB Conc 32.3 g/dL (31.6-35.5); Mean Corpuscular Hemoglobin 28.9 pg (28.0-33.3); Mean Corpuscular Volume 89.4 fL (83.0-100.0); Mean Platelet Volume 10.5 fL (9.4-12.4); Nucleated Red Blood Cells 2.5 /100 WBC (0); Platelet Count 221 K/mcL (140-400); Red Blood Count 2.63 M/mcL (3.82-4.97); Red Cell Distribution Width 18.7 % (11.5-14.5); White Blood Count 13.5 K/mcL (4.3-11.1)
[2020-02-17 06:36] LABS: BUN/Creatinine Ratio 58 (6-26); Blood Urea Nitrogen 30 mg/dL (8-23); Calcium 8.7 mg/dL (8.6-10.3); Carbon Dioxide 23 mEq/L (23-29); Chloride 105 mEq/L (98-107); Glucose 191 mg/dL (70-105); Osmolality,Calculated 293 (280-300); Potassium 3.6 mEq/L (3.5-5.1); Sodium 136 mEq/L (136-145); eGFR For African Americans > 60 (> 60); eGFR For Non-African Americans > 60 (> 60)
[2020-02-17] MEDS ORDERED: Potassium Chloride Elixir 20 MEQ/15 ML UDC PO ONE (09:00)
[2020-02-17] MEDS: Iron Sucrose Complex 200 MG in 0.9 % Sodium Chloride 100 ML IVPB SCH (09:00)
[2020-02-17] MEDS: Piperacillin/Tazobactam 3.375 GM in 0.9 % Sodium Chloride Mini Bag 100 ML IVPB SCH ×2 (12:04→18:37)
[2020-02-17] MEDS: Metoprolol XL (24 HR) Succ 25 MG TAB.ER.24H PO SCH (12:05)
[2020-02-17] MEDS: *HR* Amiodarone 200 MG TABLET PO SCH ×2 (12:05→21:02)
[2020-02-17] MEDS: Insulin DETEMIR 100 UNIT/ML X5UNITS SUBQ SCH ×2 (12:05→21:17)
[2020-02-17] MEDS ORDERED: Insulin DETEMIR 100 UNIT/ML X5UNITS SUBQ ONE (12:51)
[2020-02-17] MEDS ORDERED: Insulin DETEMIR 100 UNIT/ML X5UNITS SUBQ SCH (13:00)
[2020-02-17 15:05] LABS: Eosinophils # 0.3 K/mcL (0.0-0.6); Lymphocytes # 1.6 K/mcL (0.6-4.6); Monocytes # 3.8 K/mcL (0.0-1.3); Neutrophils # 7.6 K/mcL (1.6-8.9)
[2020-02-17 15:06] LABS: Acanthocytes 1+ (Not Present); Platelet Estimate Normal (Normal)
[2020-02-17] MEDS ORDERED: PARENTERAL AMINO ACID 10% IVPB SCH (17:00)
[2020-02-17] MEDS ORDERED: [UNRECOGNIZED DRUG - OTHER] IVPB SCH (17:00)
[2020-02-17] MEDS ORDERED: CLINIMIX E IVPB SCH (17:00)
[2020-02-18] MEDS: Piperacillin/Tazobactam 3.375 GM in 0.9 % Sodium Chloride Mini Bag 100 ML IVPB SCH ×3 (00:20→16:26)
[2020-02-18] MEDS: Insulin LISPRO 300 UNITS/3 ML VIAL SUBQ SCH ×6 (03:40→20:43)
[2020-02-18 05:16] LABS: Hematocrit 23.9 % (35.3-44.9); Hemoglobin 7.5 g/dL (11.5-15.4); Mean Corpuscular HGB Conc 31.4 g/dL (31.6-35.5); Mean Corpuscular Hemoglobin 28.3 pg (28.0-33.3); Mean Corpuscular Volume 90.2 fL (83.0-100.0); Nucleated Red Blood Cells 2.8 /100 WBC (0); Platelet Count 227 K/mcL (140-400); Red Blood Count 2.65 M/mcL (3.82-4.97); Red Cell Distribution Width 18.6 % (11.5-14.5); White Blood Count 16.1 K/mcL (4.3-11.1)
[2020-02-18 05:39] LABS: BUN/Creatinine Ratio 59 (6-26); Blood Urea Nitrogen 30 mg/dL (8-23); Calcium 8.7 mg/dL (8.6-10.3); Carbon Dioxide 22 mEq/L (23-29); Chloride 106 mEq/L (98-107); Glucose 152 mg/dL (70-105); Osmolality,Calculated 291 (280-300); Phosphorous 3.2 mg/dL (2.7-4.5); Sodium 136 mEq/L (136-145); eGFR For African Americans > 60 (> 60); eGFR For Non-African Americans > 60 (> 60)
[2020-02-18 05:40] LABS: Anisocytosis 1+ (Not Present); Lymphocytes # 4.2 K/mcL (0.6-4.6); Monocytes # 0.6 K/mcL (0.0-1.3); Platelet Estimate Normal (Normal)
[2020-02-18] MEDS ORDERED: 0.9 % Sodium Chloride 500 ML IVC SCH (09:00)
[2020-02-18] MEDS: *HR* Amiodarone 200 MG TABLET PO SCH ×2 (09:12→20:37)
[2020-02-18] MEDS: Metoprolol XL (24 HR) Succ 25 MG TAB.ER.24H PO SCH (09:12)
[2020-02-18] MEDS: Insulin DETEMIR 100 UNIT/ML X5UNITS SUBQ SCH ×2 (09:13→20:41)
[2020-02-18 10:31] LABS: Bilirubin,Urine Negative (Negative); Blood,Urine Moderate (Negative); Clarity,Urine Turbid (Clear); Color,Urine Yellow (Yellow); Glucose,Urine (UA) Normal (Normal); Ketones,Urine Negative (Negative); Leukocyte Esterase,Urine Small (Negative); Nitrite,Urine Positive (Negative); Protein,Urine 30 mg/dL (Neg-Trace); Specific Gravity,Urine >= 1.030 (1.010-1.025); Urobilinogen,Urine Normal (Normal)
[2020-02-18 10:51] LABS: Budding Yeast,Urine Many per hpf (None Seen); Squamous Epithelial Cell,Urine Few per hpf (None-Few)
[2020-02-18 10:52] LABS: Bacteria,Urine Few per hpf (None-Few)
[2020-02-18] MEDS: Iron Sucrose Complex 200 MG in 0.9 % Sodium Chloride 100 ML IVPB SCH (13:39)
[2020-02-18] MEDS: Doxycycline 100 MG in 0.9 % Sodium Chloride Mini Bag 100 ML IVPB SCH (16:20)
[2020-02-18] MEDS ORDERED: [UNRECOGNIZED DRUG - OTHER] IVPB SCH (17:00)
[2020-02-18] MEDS ORDERED: PARENTERAL AMINO ACID 10% IVPB SCH (17:00)
[2020-02-18] MEDS ORDERED: CLINIMIX E IVPB SCH (17:00)
[2020-02-18] MEDS: Lactobacillus 1 EACH CAP.SPRINK PO SCH (20:37)
[2020-02-19] MEDS: Doxycycline 100 MG in 0.9 % Sodium Chloride Mini Bag 100 ML IVPB SCH ×2 (02:29→12:26)
[2020-02-19] MEDS: Insulin LISPRO 300 UNITS/3 ML VIAL SUBQ SCH ×5 (03:04→22:19)
[2020-02-19] MEDS: Piperacillin/Tazobactam 3.375 GM in 0.9 % Sodium Chloride Mini Bag 100 ML IVPB SCH ×3 (03:12→15:37)
[2020-02-19 03:18] LABS: Hematocrit 24.8 % (35.3-44.9); Hemoglobin 7.8 g/dL (11.5-15.4); Mean Corpuscular HGB Conc 31.5 g/dL (31.6-35.5); Mean Corpuscular Volume 92.2 fL (83.0-100.0); Mean Platelet Volume 10.2 fL (9.4-12.4); Nucleated Red Blood Cells 3.7 /100 WBC (0); Platelet Count 257 K/mcL (140-400); Red Blood Count 2.69 M/mcL (3.82-4.97); Red Cell Distribution Width 19.2 % (11.5-14.5); White Blood Count 17.9 K/mcL (4.3-11.1)
[2020-02-19 03:38] LABS: BUN/Creatinine Ratio 70 (6-26); Blood Urea Nitrogen 32 mg/dL (8-23); Calcium 8.9 mg/dL (8.6-10.3); Carbon Dioxide 22 mEq/L (23-29); Chloride 106 mEq/L (98-107); Glucose 165 mg/dL (70-105); Osmolality,Calculated 291 (280-300); Phosphorous 3.2 mg/dL (2.7-4.5); Potassium 3.9 mEq/L (3.5-5.1); Sodium 135 mEq/L (136-145); eGFR For African Americans > 60 (> 60); eGFR For Non-African Americans > 60 (> 60)
[2020-02-19 03:57] LABS: Lymphocytes # 4.7 K/mcL (0.6-4.6); Monocytes # 1.8 K/mcL (0.0-1.3); Neutrophils # 7.2 K/mcL (1.6-8.9)
[2020-02-19 03:58] LABS: Anisocytosis 1+ (Not Present); Hypochromasia Present (Not Present); Platelet Estimate Normal (Normal)
[2020-02-19] MEDS ORDERED: Isovue-370 500 ML BOTTLE IVP ONE ×2 (08:18)
[2020-02-19] MEDS ORDERED: Fluconazole 400 MG/200 ML 400 MG/200 ML BAG IVPB SCH (09:30)
[2020-02-19] MEDS ORDERED: Micafungin 100 MG in 0.9 % Sodium Chloride Mini Bag 100 ML IVPB SCH (10:30)
[2020-02-19] MEDS: Lactobacillus 1 EACH CAP.SPRINK PO SCH ×2 (12:25→22:20)
[2020-02-19] MEDS: Metoprolol XL (24 HR) Succ 25 MG TAB.ER.24H PO SCH (12:25)
[2020-02-19] MEDS: *HR* Amiodarone 200 MG TABLET PO SCH ×2 (12:26→22:20)
[2020-02-19] MEDS: Insulin DETEMIR 100 UNIT/ML X5UNITS SUBQ SCH (12:26)
[2020-02-19] MEDS: Nystatin POWDER 30 GM BOTTLE TP SCH ×2 (12:27→13:27)
[2020-02-19] MEDS: Iron Sucrose Complex 200 MG in 0.9 % Sodium Chloride 100 ML IVPB SCH (13:24)
[2020-02-19] MEDS ORDERED: Clinimix E 5%-15% SOLUTION 2,000 ML with MVI, adult with vitamin K 10 ML IVC SCH (17:00)
[2020-02-19] MEDS ORDERED: 0.9 % Sodium Chloride 250 ML IVC SCH (17:45)
[2020-02-19] MEDS ORDERED: *HR* Enoxaparin 150 MG/ML SYRINGE SQ SCH (18:00)
[2020-02-19] MEDS ORDERED: *HR* Rocuronium Bromide 50 MG/5 ML VIAL ONE (19:38)
[2020-02-19] MEDS ORDERED: *HR* Propofol 200 MG/20 ML VIAL IVP ONE (19:38)
[2020-02-19] MEDS ORDERED: Lidocaine -MPF 2% 2 ML VIAL ONE (19:38)
[2020-02-19] MEDS ORDERED: *HR* FentaNYL (PF) 100 MCG/2 ML VIAL ONE (19:39)
[2020-02-19] MEDS ORDERED: Albumin Human 5% 25.0 GM/500 ML IV.SOLN ONE (20:06)
[2020-02-19] MEDS ORDERED: Acetaminophen IV 1,000 MG/100 ML BAG IVPB ONE (20:07)
[2020-02-19] MEDS ORDERED: Mirtazapine 15 MG TABLET PO SCH (21:00)
[2020-02-19] MEDS ORDERED: Ondansetron 4 MG/2 ML VIAL ONE ×2 (21:13→23:48)
[2020-02-19] MEDS ORDERED: *HR* Metoprolol 5 MG/5 ML VIAL IVP ONE (21:23)
[2020-02-19] MEDS ORDERED: *HR* HYDROMORPHONE 2 MG/ML VIAL ONE (21:36)
[2020-02-19] MEDS ORDERED: Cefepime HCl 2,000 MG in Water for inj. (sterile) 20 ML IVP SCH (22:00)
[2020-02-19] MEDS ORDERED: Dexamethasone 4 MG/ML VIAL ONE (22:05)
[2020-02-19] MEDS ORDERED: *HR* HYDROmorphone (PF) 1 MG/ML SYRINGE IVP PRN (23:42)
[2020-02-19] MEDS ORDERED: Ondansetron 4 MG/2 ML VIAL IVP PRN (23:42)
[2020-02-19] MEDS ORDERED: *HR* Labetalol 20 MG/4 ML SYRINGE IVP PRN (23:42)
[2020-02-19] MEDS ORDERED: Prochlorperazine 10 MG/2 ML VIAL IVP PRN (23:58)
[2020-02-20] MEDS ORDERED: MetroNIDAZOLE 500 MG/100 ML 500 MG/100 ML BAG IVPB SCH
[2020-02-20] MEDS ORDERED: D10% in Water 500 ML IVC PRN (00:57)
[2020-02-20] MEDS ORDERED: *HR* OxyCODONE Immed Rel 5 MG TABLET PO PRN (00:57)
[2020-02-20] MEDS ORDERED: 0.9 % Sodium Chloride 1,000 ML IVC SCH (00:57)
[2020-02-20] MEDS ORDERED: Clinimix E 5%-15% SOLUTION 2,000 ML with MVI, adult with vitamin K 10 ML IVC SCH (00:57)
[2020-02-20] MEDS ORDERED: D5% in Water 1,000 ML IVC PRN (00:57)
[2020-02-20] MEDS ORDERED: Isovue-370 500 ML BOTTLE IVP ONE (00:57)
[2020-02-20] MEDS: Acetaminophen IV 1,000 MG/100 ML BAG IVPB SCH ×4 (01:47→20:14)
[2020-02-20] MEDS: Doxycycline 100 MG in 0.9 % Sodium Chloride Mini Bag 100 ML IVPB SCH ×2 (01:48→15:14)
[2020-02-20] MEDS: Cefepime HCl 2,000 MG in Water for inj. (sterile) 20 ML IVP SCH ×3 (01:48→18:00)
[2020-02-20] MEDS: Nystatin POWDER 30 GM BOTTLE TP SCH ×4 (03:20→20:07)
[2020-02-20] MEDS: Insulin LISPRO 300 UNITS/3 ML VIAL SUBQ SCH ×7 (03:21→23:28)
[2020-02-20 03:41] LABS: Hematocrit 22.8 % (35.3-44.9); Mean Corpuscular HGB Conc 30.7 g/dL (31.6-35.5); Mean Corpuscular Hemoglobin 29.3 pg (28.0-33.3); Mean Corpuscular Volume 95.4 fL (83.0-100.0); Mean Platelet Volume 10.2 fL (9.4-12.4); Nucleated Red Blood Cells 1.2 /100 WBC (0); Platelet Count 245 K/mcL (140-400); Red Blood Count 2.39 M/mcL (3.82-4.97); Red Cell Distribution Width 19.4 % (11.5-14.5); White Blood Count 17.4 K/mcL (4.3-11.1)
[2020-02-20 04:33] LABS: BUN/Creatinine Ratio 61 (6-26); Blood Urea Nitrogen 31 mg/dL (8-23); Calcium 8.3 mg/dL (8.6-10.3); Carbon Dioxide 21 mEq/L (23-29); Chloride 105 mEq/L (98-107); Glucose 249 mg/dL (70-105); Osmolality,Calculated 291 (280-300); Phosphorous 3.8 mg/dL (2.7-4.5); Potassium 4.3 mEq/L (3.5-5.1); Sodium 133 mEq/L (136-145); eGFR For African Americans > 60 (> 60); eGFR For Non-African Americans > 60 (> 60)
[2020-02-20 04:55] LABS: Lymphocytes # 3.8 K/mcL (0.6-4.6); Monocytes # 0.7 K/mcL (0.0-1.3); Neutrophils # 11.1 K/mcL (1.6-8.9); Platelet Estimate Normal (Normal)
[2020-02-20 04:56] LABS: Polychromasia 1+ (Not Present); Smudge Cells Present (Not Present)
[2020-02-20 07:21] LABS: Creatinine,Urine 26 mg/dL; Microalbum/Creatinine Ratio,Ur 119 mcg/mg (Less than 30); Microalbumin,Urine 31 mg/L
[2020-02-20] MEDS: Lactobacillus 1 EACH CAP.SPRINK PO SCH (08:10)
[2020-02-20] MEDS: MetroNIDAZOLE 500 MG/100 ML 500 MG/100 ML BAG IVPB SCH ×3 (08:39→23:29)
[2020-02-20] MEDS: Micafungin 100 MG in 0.9 % Sodium Chloride Mini Bag 100 ML IVPB SCH ×2 (08:40→10:49)
[2020-02-20] MEDS: Iron Sucrose Complex 200 MG in 0.9 % Sodium Chloride 100 ML IVPB SCH (08:41)
[2020-02-20] MEDS ORDERED: Metoprolol XL (24 HR) Succ 25 MG TAB.ER.24H PO SCH (09:00)
[2020-02-20] MEDS ORDERED: Iron Sucrose Complex 200 MG in 0.9 % Sodium Chloride 100 ML IVPB SCH (09:00)
[2020-02-20] MEDS ORDERED: *HR* Amiodarone 200 MG TABLET PO SCH (09:00)
[2020-02-20] MEDS ORDERED: Insulin DETEMIR 100 UNIT/ML X5UNITS SUBQ SCH ×2 (09:00)
[2020-02-20 09:09] LABS: Hemoglobin 6.9 g/dL (11.5-15.4)
[2020-02-20] MEDS ORDERED: *HR* Alteplase (Cathflo) 2 MG VIAL IVP ONE (09:49)
[2020-02-20] MEDS ORDERED: 0.9 % Sodium Chloride 250 ML IVC SCH (10:15)
[2020-02-20] MEDS: Amiodarone Premix 360 MG/200 ML BAG IVC SCH (14:49)
[2020-02-20 16:55] LABS: Hematocrit 26.2 % (35.3-44.9); Hemoglobin 8.2 g/dL (11.5-15.4)
[2020-02-20] MEDS ORDERED: PARENTERAL AMINO ACID 10% IVC SCH (17:00)
[2020-02-20] MEDS ORDERED: CLINIMIX E IVC SCH (17:00)
[2020-02-20] MEDS: Albumin 25% 25gram/100mL 25 GM/100 ML IV.SOLN IVPB SCH (18:00)
[2020-02-20] MEDS: Furosemide 20 MG/2 ML VIAL IVP SCH (20:13)
[2020-02-20] MEDS ORDERED: Albumin 25% 25gram/100mL 25 GM/100 ML IV.SOLN IVPB SCH (21:00)
[2020-02-20] MEDS ORDERED: Furosemide 20 MG/2 ML VIAL IVP SCH (23:00)
[2020-02-21 00:48] LABS: Hematocrit 24.1 % (35.3-44.9); Hemoglobin 7.6 g/dL (11.5-15.4); Mean Corpuscular HGB Conc 31.5 g/dL (31.6-35.5); Mean Corpuscular Hemoglobin 29.2 pg (28.0-33.3); Mean Corpuscular Volume 92.7 fL (83.0-100.0); Mean Platelet Volume 9.9 fL (9.4-12.4); Nucleated Red Blood Cells 1.2 /100 WBC (0); Platelet Count 238 K/mcL (140-400); Red Cell Distribution Width 18.6 % (11.5-14.5); White Blood Count 14.3 K/mcL (4.3-11.1)
[2020-02-21 01:07] LABS: Magnesium 1.9 mg/dL (1.6-2.6)
[2020-02-21 01:15] LABS: Lymphocytes # 1.7 K/mcL (0.6-4.6); Monocytes # 1.4 K/mcL (0.0-1.3); Neutrophils # 9.7 K/mcL (1.6-8.9); Platelet Estimate Normal (Normal)
[2020-02-21 01:16] LABS: Anisocytosis 1+ (Not Present); Polychromasia 1+ (Not Present)
[2020-02-21] MEDS: Doxycycline 100 MG in 0.9 % Sodium Chloride Mini Bag 100 ML IVPB SCH ×3 (02:06→23:45)
[2020-02-21] MEDS: Acetaminophen IV 1,000 MG/100 ML BAG IVPB SCH ×4 (02:06→21:09)
[2020-02-21] MEDS: Cefepime HCl 2,000 MG in Water for inj. (sterile) 20 ML IVP SCH ×3 (02:07→17:09)
[2020-02-21] MEDS: Albumin 25% 25gram/100mL 25 GM/100 ML IV.SOLN IVPB SCH ×2 (04:41→17:09)
[2020-02-21] MEDS: Insulin LISPRO 300 UNITS/3 ML VIAL SUBQ SCH ×5 (04:45→21:11)
[2020-02-21 06:27] LABS: BUN/Creatinine Ratio 56 (6-26); Blood Urea Nitrogen 33 mg/dL (8-23); Calcium 8.9 mg/dL (8.6-10.3); Carbon Dioxide 20 mEq/L (23-29); Chloride 106 mEq/L (98-107); Glucose 224 mg/dL (70-105); Osmolality,Calculated 298 (280-300); Phosphorous 3.4 mg/dL (2.7-4.5); Potassium 3.6 mEq/L (3.5-5.1); Sodium 137 mEq/L (136-145); eGFR For African Americans > 60 (> 60); eGFR For Non-African Americans > 60 (> 60)
[2020-02-21] MEDS: MetroNIDAZOLE 500 MG/100 ML 500 MG/100 ML BAG IVPB SCH ×3 (08:35→23:45)
[2020-02-21] MEDS: Furosemide 20 MG/2 ML VIAL IVP SCH ×2 (08:39→21:10)
[2020-02-21] MEDS: Micafungin 100 MG in 0.9 % Sodium Chloride Mini Bag 100 ML IVPB SCH (08:41)
[2020-02-21] MEDS: Nystatin POWDER 30 GM BOTTLE TP SCH ×3 (08:43→21:10)
[2020-02-21] MEDS: Amiodarone Premix 360 MG/200 ML BAG IVC SCH (09:49)
[2020-02-21] MEDS ORDERED: PARENTERAL AMINO ACID 10% IVC SCH (17:00)
[2020-02-21] MEDS ORDERED: [UNRECOGNIZED DRUG - OTHER] IVC SCH (17:00)
[2020-02-21] MEDS ORDERED: CLINIMIX E IVC SCH (17:00)
[2020-02-21] MEDS ORDERED: MVI IVC SCH (17:00)
[2020-02-22] MEDS: Insulin LISPRO 300 UNITS/3 ML VIAL SUBQ SCH ×6 (00:40→21:36)
[2020-02-22] MEDS: Cefepime HCl 2,000 MG in Water for inj. (sterile) 20 ML IVP SCH ×3 (02:00→18:01)
[2020-02-22] MEDS: Amiodarone Premix 360 MG/200 ML BAG IVC SCH ×2 (02:01→22:09)
[2020-02-22] MEDS: Acetaminophen IV 1,000 MG/100 ML BAG IVPB SCH ×4 (03:27→21:26)
[2020-02-22 05:08] LABS: Hematocrit 22.8 % (35.3-44.9); Hemoglobin 7.2 g/dL (11.5-15.4); Mean Corpuscular HGB Conc 31.6 g/dL (31.6-35.5); Mean Corpuscular Hemoglobin 29.5 pg (28.0-33.3); Mean Corpuscular Volume 93.4 fL (83.0-100.0); Mean Platelet Volume 10.2 fL (9.4-12.4); Nucleated Red Blood Cells 1.3 /100 WBC (0); Platelet Count 256 K/mcL (140-400); Red Blood Count 2.44 M/mcL (3.82-4.97); Red Cell Distribution Width 19.2 % (11.5-14.5); White Blood Count 12.3 K/mcL (4.3-11.1)
[2020-02-22] MEDS: Albumin 25% 25gram/100mL 25 GM/100 ML IV.SOLN IVPB SCH ×2 (05:31→17:41)
[2020-02-22 05:43] LABS: BUN/Creatinine Ratio 57 (6-26); Blood Urea Nitrogen 38 mg/dL (8-23); Carbon Dioxide 23 mEq/L (23-29); Chloride 105 mEq/L (98-107); Eosinophils # 0.3 K/mcL (0.0-0.6); Glucose 164 mg/dL (70-105); Lymphocytes # 0.7 K/mcL (0.6-4.6); Magnesium 1.9 mg/dL (1.6-2.6); Monocytes # 0.5 K/mcL (0.0-1.3); Neutrophils # 10.1 K/mcL (1.6-8.9); Osmolality,Calculated 301 (280-300); Platelet Estimate Normal (Normal); Polychromasia 1+ (Not Present); Potassium 3.2 mEq/L (3.5-5.1); Sodium 139 mEq/L (136-145); eGFR For African Americans > 60 (> 60); eGFR For Non-African Americans > 60 (> 60)
[2020-02-22 05:44] LABS: Toxic Granulation Present (Not Present)
[2020-02-22] MEDS: MetroNIDAZOLE 500 MG/100 ML 500 MG/100 ML BAG IVPB SCH ×3 (09:40→23:58)
[2020-02-22] MEDS: Potassium Chloride 40 MEQ, Lidocaine 1% 2 ML in 0.9 % Sodium Chloride 500 ML IVPB ONE ×2 (09:41→10:06)
[2020-02-22] MEDS: Furosemide 20 MG/2 ML VIAL IVP SCH ×2 (09:44→21:24)
[2020-02-22] MEDS: Micafungin 100 MG in 0.9 % Sodium Chloride Mini Bag 100 ML IVPB SCH (09:45)
[2020-02-22] MEDS: Nystatin POWDER 30 GM BOTTLE TP SCH ×3 (10:58→21:37)
[2020-02-22] MEDS: Doxycycline 100 MG in 0.9 % Sodium Chloride Mini Bag 100 ML IVPB SCH (13:36)
[2020-02-22] MEDS ORDERED: TRACE ELEMENTS IVPB SCH (17:00)
[2020-02-22] MEDS ORDERED: Clinimix E 5%-15% SOLUTION 2,000 ML with Trace Elements-5 Concentrate 1 ML IV SCH (17:00)
[2020-02-22] MEDS ORDERED: CLINIMIX E IVPB SCH (17:00)
[2020-02-23] MEDS: Doxycycline 100 MG in 0.9 % Sodium Chloride Mini Bag 100 ML IVPB SCH ×2 (01:30→12:15)
[2020-02-23] MEDS: Insulin LISPRO 300 UNITS/3 ML VIAL SUBQ SCH ×6 (01:44→19:37)
[2020-02-23] MEDS: Cefepime HCl 2,000 MG in Water for inj. (sterile) 20 ML IVP SCH ×3 (02:19→17:58)
[2020-02-23] MEDS: Acetaminophen IV 1,000 MG/100 ML BAG IVPB SCH ×4 (02:35→19:38)
[2020-02-23 02:55] LABS: Hematocrit 23.1 % (35.3-44.9); Mean Corpuscular HGB Conc 30.3 g/dL (31.6-35.5); Mean Corpuscular Hemoglobin 28.7 pg (28.0-33.3); Mean Corpuscular Volume 94.7 fL (83.0-100.0); Mean Platelet Volume 9.8 fL (9.4-12.4); Nucleated Red Blood Cells 0.7 /100 WBC (0); Platelet Count 250 K/mcL (140-400); Red Blood Count 2.44 M/mcL (3.82-4.97); Red Cell Distribution Width 19.8 % (11.5-14.5); White Blood Count 11.1 K/mcL (4.3-11.1)
[2020-02-23 03:14] LABS: BUN/Creatinine Ratio 55 (6-26); Blood Urea Nitrogen 39 mg/dL (8-23); Calcium 8.9 mg/dL (8.6-10.3); Carbon Dioxide 27 mEq/L (23-29); Chloride 103 mEq/L (98-107); Glucose 164 mg/dL (70-105); Magnesium 1.8 mg/dL (1.6-2.6); Osmolality,Calculated 303 (280-300); Phosphorous 2.7 mg/dL (2.7-4.5); Potassium 2.8 mEq/L (3.5-5.1); Sodium 140 mEq/L (136-145); eGFR For African Americans > 60 (> 60); eGFR For Non-African Americans > 60 (> 60)
[2020-02-23 03:36] LABS: Anisocytosis 1+ (Not Present); Lymphocytes # 1.3 K/mcL (0.6-4.6); Monocytes # 0.2 K/mcL (0.0-1.3); Neutrophils # 8.2 K/mcL (1.6-8.9); Platelet Estimate Normal (Normal); Poikilocytosis 1+ (Not Present); Polychromasia 1+ (Not Present)
[2020-02-23] MEDS: Albumin 25% 25gram/100mL 25 GM/100 ML IV.SOLN IVPB SCH ×2 (04:58→17:59)
[2020-02-23] MEDS ORDERED: Ondansetron 4 MG/2 ML VIAL IVP ONE (05:11)
[2020-02-23] MEDS ORDERED: Potassium Chloride 40 MEQ, Lidocaine 1% 2 ML in 0.9 % Sodium Chloride 500 ML IVPB ONE (07:18)
[2020-02-23] MEDS: Micafungin 100 MG in 0.9 % Sodium Chloride Mini Bag 100 ML IVPB SCH (08:43)
[2020-02-23] MEDS: Furosemide 20 MG/2 ML VIAL IVP SCH ×2 (08:43→19:38)
[2020-02-23] MEDS: MetroNIDAZOLE 500 MG/100 ML 500 MG/100 ML BAG IVPB SCH ×2 (08:44→16:05)
[2020-02-23] MEDS: Nystatin POWDER 30 GM BOTTLE TP SCH ×3 (08:45→19:39)
[2020-02-23] MEDS ORDERED: Clinimix E 5%-20% SOLUTION 2,000 ML with MVI, adult with vitamin K 10 ML, Trace Eleme... IVC SCH (17:00)
[2020-02-23] MEDS: Amiodarone Premix 360 MG/200 ML BAG IVC SCH (18:18)
[2020-02-23] MEDS ORDERED: Pantoprazole 40 MG VIAL IVP ONE (20:21)
[2020-02-24] MEDS: Doxycycline 100 MG in 0.9 % Sodium Chloride Mini Bag 100 ML IVPB SCH ×2 (00:28→12:52)
[2020-02-24] MEDS: MetroNIDAZOLE 500 MG/100 ML 500 MG/100 ML BAG IVPB SCH ×4 (00:29→23:05)
[2020-02-24] MEDS: Insulin LISPRO 300 UNITS/3 ML VIAL SUBQ SCH ×6 (00:30→21:05)
[2020-02-24] MEDS: Cefepime HCl 2,000 MG in Water for inj. (sterile) 20 ML IVP SCH ×3 (02:42→17:38)
[2020-02-24] MEDS: Acetaminophen IV 1,000 MG/100 ML BAG IVPB SCH ×4 (02:43→21:39)
[2020-02-24 03:02] LABS: Hematocrit 22.2 % (35.3-44.9); Hemoglobin 6.7 g/dL (11.5-15.4); Mean Corpuscular HGB Conc 30.2 g/dL (31.6-35.5); Mean Corpuscular Hemoglobin 28.8 pg (28.0-33.3); Mean Corpuscular Volume 95.3 fL (83.0-100.0); Mean Platelet Volume 9.8 fL (9.4-12.4); Nucleated Red Blood Cells 0.7 /100 WBC (0); Platelet Count 256 K/mcL (140-400); Red Blood Count 2.33 M/mcL (3.82-4.97); Red Cell Distribution Width 19.9 % (11.5-14.5); White Blood Count 10.4 K/mcL (4.3-11.1)
[2020-02-24 03:25] LABS: BUN/Creatinine Ratio 56 (6-26); Blood Urea Nitrogen 38 mg/dL (8-23); Calcium 8.9 mg/dL (8.6-10.3); Carbon Dioxide 27 mEq/L (23-29); Chloride 103 mEq/L (98-107); Glucose 134 mg/dL (70-105); Magnesium 1.8 mg/dL (1.6-2.6); Osmolality,Calculated 301 (280-300); Phosphorous 2.4 mg/dL (2.7-4.5); Potassium 2.9 mEq/L (3.5-5.1); Sodium 140 mEq/L (136-145); eGFR For African Americans > 60 (> 60); eGFR For Non-African Americans > 60 (> 60)
[2020-02-24] MEDS ORDERED: 0.9 % Sodium Chloride 250 ML IVC SCH (03:30)
[2020-02-24 03:34] LABS: Lymphocytes # 1.5 K/mcL (0.6-4.6); Monocytes # 0.6 K/mcL (0.0-1.3); Neutrophils # 7.7 K/mcL (1.6-8.9)
[2020-02-24 03:35] LABS: Anisocytosis 1+ (Not Present); Platelet Estimate Normal (Normal); Polychromasia 1+ (Not Present)
[2020-02-24] MEDS ORDERED: Potassium Chloride 40 MEQ, Lidocaine 1% 2 ML in 0.9 % Sodium Chloride 500 ML IVPB ONE (04:23)
[2020-02-24] MEDS: Albumin 25% 25gram/100mL 25 GM/100 ML IV.SOLN IVPB SCH ×2 (05:13→17:38)
[2020-02-24] MEDS: Furosemide 20 MG/2 ML VIAL IVP SCH (06:48)
[2020-02-24] MEDS ORDERED: 0.9 % Sodium Chloride 250 ML ONE (06:55)
[2020-02-24] MEDS ORDERED: Potassium Phosphate 44 MEQ in 0.9 % Sodium Chloride 250 ML IVPB ONE (07:25)
[2020-02-24] MEDS: Micafungin 100 MG in 0.9 % Sodium Chloride Mini Bag 100 ML IVPB SCH (08:17)
[2020-02-24] MEDS: Nystatin POWDER 30 GM BOTTLE TP SCH ×3 (08:57→19:51)
[2020-02-24] MEDS ORDERED: Furosemide 20 MG/2 ML VIAL IVP SCH (13:15)
[2020-02-24] MEDS: Amiodarone Premix 360 MG/200 ML BAG IVC SCH (13:23)
[2020-02-24] MEDS ORDERED: [UNRECOGNIZED DRUG - OTHER] IVPB SCH (17:00)
[2020-02-24] MEDS ORDERED: TRACE ELEMENTS IVPB SCH (17:00)
[2020-02-24] MEDS ORDERED: CLINIMIX E IVPB SCH (17:00)
[2020-02-24 17:12] LABS: Hematocrit 25.8 % (35.3-44.9); Hemoglobin 7.9 g/dL (11.5-15.4)
[2020-02-24] MEDS: Furosemide 40 MG/4 ML VIAL IVP SCH (19:47)
[2020-02-25] MEDS: Insulin LISPRO 300 UNITS/3 ML VIAL SUBQ SCH ×6 (00:24→19:55)
[2020-02-25] MEDS: Doxycycline 100 MG in 0.9 % Sodium Chloride Mini Bag 100 ML IVPB SCH ×2 (00:26→12:52)
[2020-02-25] MEDS: Cefepime HCl 2,000 MG in Water for inj. (sterile) 20 ML IVP SCH ×3 (01:04→17:05)
[2020-02-25] MEDS: Acetaminophen IV 1,000 MG/100 ML BAG IVPB SCH ×2 (03:42→09:25)
[2020-02-25 04:56] LABS: Hematocrit 26.2 % (35.3-44.9); Mean Corpuscular HGB Conc 30.5 g/dL (31.6-35.5); Mean Corpuscular Hemoglobin 29.3 pg (28.0-33.3); Mean Platelet Volume 9.9 fL (9.4-12.4); Nucleated Red Blood Cells 0.4 /100 WBC (0); Platelet Count 286 K/mcL (140-400); Red Blood Count 2.73 M/mcL (3.82-4.97); Red Cell Distribution Width 19.3 % (11.5-14.5); White Blood Count 9.1 K/mcL (4.3-11.1)
[2020-02-25 05:15] LABS: BUN/Creatinine Ratio 49 (6-26); Blood Urea Nitrogen 41 mg/dL (8-23); Calcium 9.2 mg/dL (8.6-10.3); Carbon Dioxide 28 mEq/L (23-29); Chloride 104 mEq/L (98-107); Glucose 157 mg/dL (70-105); Magnesium 2.1 mg/dL (1.6-2.6); Osmolality,Calculated 305 (280-300); Phosphorous 3.2 mg/dL (2.7-4.5); Potassium 3.2 mEq/L (3.5-5.1); Sodium 141 mEq/L (136-145); eGFR For African Americans > 60 (> 60); eGFR For Non-African Americans > 60 (> 60)
[2020-02-25 05:35] LABS: Lymphocytes # 0.9 K/mcL (0.6-4.6); Monocytes # 0.4 K/mcL (0.0-1.3); Neutrophils # 7.3 K/mcL (1.6-8.9)
[2020-02-25 05:36] LABS: Anisocytosis 1+ (Not Present); Platelet Estimate Normal (Normal); Reactive Lymphocytes Present (Not Present)
[2020-02-25] MEDS: Albumin 25% 25gram/100mL 25 GM/100 ML IV.SOLN IVPB SCH ×2 (06:03→17:06)
[2020-02-25] MEDS: Furosemide 40 MG/4 ML VIAL IVP SCH ×3 (09:03→19:57)
[2020-02-25] MEDS: Micafungin 100 MG in 0.9 % Sodium Chloride Mini Bag 100 ML IVPB SCH (09:03)
[2020-02-25] MEDS: MetroNIDAZOLE 500 MG/100 ML 500 MG/100 ML BAG IVPB SCH ×2 (09:04→16:06)
[2020-02-25] MEDS: Amiodarone Premix 360 MG/200 ML BAG IVC SCH (09:24)
[2020-02-25] MEDS: Nystatin POWDER 30 GM BOTTLE TP SCH ×3 (09:38→19:57)
[2020-02-25] MEDS: Spironolactone 25 MG TABLET PO SCH ×2 (12:57→19:57)
[2020-02-25] MEDS ORDERED: [UNRECOGNIZED DRUG - OTHER] IVPB SCH (17:00)
[2020-02-25] MEDS ORDERED: CLINIMIX E IVPB SCH (17:00)
[2020-02-25] MEDS ORDERED: TRACE ELEMENTS IVPB SCH (17:00)
[2020-02-25] MEDS: *HR* Amiodarone 200 MG TABLET PO SCH (19:57)
[2020-02-26] MEDS: Doxycycline 100 MG in 0.9 % Sodium Chloride Mini Bag 100 ML IVPB SCH ×2 (00:33→13:35)
[2020-02-26] MEDS: MetroNIDAZOLE 500 MG/100 ML 500 MG/100 ML BAG IVPB SCH ×4 (00:33→23:50)
[2020-02-26] MEDS: Insulin LISPRO 300 UNITS/3 ML VIAL SUBQ SCH ×6 (00:43→21:19)
[2020-02-26] MEDS: Cefepime HCl 2,000 MG in Water for inj. (sterile) 20 ML IVP SCH ×3 (03:03→21:08)
[2020-02-26] MEDS: Albumin 25% 25gram/100mL 25 GM/100 ML IV.SOLN IVPB SCH (06:13)
[2020-02-26 06:18] LABS: Red Cell Distribution Width 19.6 % (11.5-14.5)
[2020-02-26 06:20] LABS: Hematocrit 29.2 % (35.3-44.9); Hemoglobin 8.6 g/dL (11.5-15.4); Immature Platelets 5.9 % (1.1-6.1); Lymphocytes # 1.1 K/mcL (0.6-4.6); Mean Corpuscular HGB Conc 29.5 g/dL (31.6-35.5); Mean Corpuscular Hemoglobin 29.3 pg (28.0-33.3); Mean Corpuscular Volume 99.3 fL (83.0-100.0); Mean Platelet Volume 10.8 fL (9.4-12.4); Nucleated Red Blood Cells 0.4 /100 WBC (0); Platelet Count 272 K/mcL (140-400); Red Blood Count 2.94 M/mcL (3.82-4.97)
[2020-02-26 06:34] LABS: Platelet Estimate Normal (Normal)
[2020-02-26 06:35] LABS: Anisocytosis 1+ (Not Present)
[2020-02-26 06:37] LABS: Eosinophils # 0.4 K/mcL (0.0-0.6); Monocytes # 0.7 K/mcL (0.0-1.3); Neutrophils # 6.8 K/mcL (1.6-8.9)
[2020-02-26 06:38] LABS: BUN/Creatinine Ratio 49 (6-26); Blood Urea Nitrogen 42 mg/dL (8-23); Calcium 9.5 mg/dL (8.6-10.3); Carbon Dioxide 24 mEq/L (23-29); Chloride 101 mEq/L (98-107); Glucose 141 mg/dL (70-105); Magnesium 2.1 mg/dL (1.6-2.6); Osmolality,Calculated 299 (280-300); Phosphorous 2.5 mg/dL (2.7-4.5); Potassium 3.5 mEq/L (3.5-5.1); Sodium 138 mEq/L (136-145); eGFR For African Americans > 60 (> 60); eGFR For Non-African Americans > 60 (> 60)
[2020-02-26] MEDS ORDERED: Potassium Phosphate 44 MEQ in 0.9 % Sodium Chloride 250 ML IVPB ONE (08:00)
[2020-02-26] MEDS: Micafungin 100 MG in 0.9 % Sodium Chloride Mini Bag 100 ML IVPB SCH (08:07)
[2020-02-26] MEDS: *HR* Amiodarone 200 MG TABLET PO SCH ×2 (08:09→21:05)
[2020-02-26] MEDS: Spironolactone 25 MG TABLET PO SCH ×2 (08:09→21:04)
[2020-02-26] MEDS: Furosemide 40 MG/4 ML VIAL IVP SCH ×3 (08:15→23:50)
[2020-02-26] MEDS: Nystatin POWDER 30 GM BOTTLE TP SCH ×3 (08:59→21:04)
[2020-02-26] MEDS: Metoprolol XL (24 HR) Succ 25 MG TAB.ER.24H PO SCH (10:16)
[2020-02-26] MEDS ORDERED: Clinimix E 5%-20% SOLUTION 2,000 ML with MVI, adult with vitamin K 10 ML, Trace Eleme... IVC SCH (17:00)
[2020-02-26] MEDS: Doxycycline 100 MG CAPSULE PO SCH (21:04)
[2020-02-27] MEDS: Insulin LISPRO 300 UNITS/3 ML VIAL SUBQ SCH ×6 (00:21→21:00)
[2020-02-27 05:51] LABS: Hematocrit 30.1 % (35.3-44.9); Hemoglobin 8.9 g/dL (11.5-15.4); Mean Corpuscular HGB Conc 29.6 g/dL (31.6-35.5); Platelet Count 332 K/mcL (140-400); Red Blood Count 3.07 M/mcL (3.82-4.97); Red Cell Distribution Width 19.6 % (11.5-14.5); White Blood Count 9.8 K/mcL (4.3-11.1)
[2020-02-27 05:53] LABS: BUN/Creatinine Ratio 55 (6-26); Blood Urea Nitrogen 50 mg/dL (8-23); Calcium 10.1 mg/dL (8.6-10.3); Carbon Dioxide 27 mEq/L (23-29); Chloride 102 mEq/L (98-107); Glucose 171 mg/dL (70-105); Osmolality,Calculated 309 (280-300); Phosphorous 3.8 mg/dL (2.7-4.5); Potassium 3.5 mEq/L (3.5-5.1); Sodium 141 mEq/L (136-145); eGFR For African Americans > 60 (> 60); eGFR For Non-African Americans > 60 (> 60)
[2020-02-27 07:18] LABS: Lymphocytes # 1.8 K/mcL (0.6-4.6); Monocytes # 0.4 K/mcL (0.0-1.3); Neutrophils # 7.6 K/mcL (1.6-8.9); Platelet Estimate Normal (Normal); Reactive Lymphocytes Present (Not Present)
[2020-02-27] MEDS: *HR* Amiodarone 200 MG TABLET PO SCH ×2 (07:38→21:01)
[2020-02-27] MEDS: Doxycycline 100 MG CAPSULE PO SCH ×2 (07:38→21:01)
[2020-02-27] MEDS: Metoprolol XL (24 HR) Succ 25 MG TAB.ER.24H PO SCH (07:38)
[2020-02-27] MEDS: Spironolactone 25 MG TABLET PO SCH ×2 (07:38→21:01)
[2020-02-27] MEDS: Cefepime HCl 2,000 MG in Water for inj. (sterile) 20 ML IVP SCH ×2 (07:39→21:01)
[2020-02-27] MEDS: Micafungin 100 MG in 0.9 % Sodium Chloride Mini Bag 100 ML IVPB SCH (07:39)
[2020-02-27] MEDS: MetroNIDAZOLE 500 MG/100 ML 500 MG/100 ML BAG IVPB SCH (07:40)
[2020-02-27] MEDS: Furosemide 40 MG/4 ML VIAL IVP SCH ×2 (07:40→16:58)
[2020-02-27] MEDS: Nystatin POWDER 30 GM BOTTLE TP SCH ×3 (07:40→21:02)
[2020-02-27] MEDS ORDERED: *HR* Heparin 5,000 UNIT/ML VIAL IVP PRN ×2 (12:29)
[2020-02-27 13:37] LABS: Hematocrit 29.9 % (35.3-44.9); Hemoglobin 9.1 g/dL (11.5-15.4); Mean Corpuscular HGB Conc 30.4 g/dL (31.6-35.5); Mean Corpuscular Hemoglobin 29.7 pg (28.0-33.3); Mean Corpuscular Volume 97.7 fL (83.0-100.0); Platelet Count 332 K/mcL (140-400); Red Blood Count 3.06 M/mcL (3.82-4.97); Red Cell Distribution Width 19.5 % (11.5-14.5); White Blood Count 10.2 K/mcL (4.3-11.1)
[2020-02-27] MEDS: Heparin 25,000UNIT/250ML 1/2NS 25,000 UNIT/250 ML IV.SOLN IVC SCH (13:41)
[2020-02-27 13:45] LABS: INR 1.4; Prothrombin Time 16.3 Seconds (9.4-12.1)
[2020-02-27] MEDS: metroNIDAZOLE 500 MG TABLET PO SCH ×2 (16:58→21:01)
[2020-02-27] MEDS ORDERED: Clinimix E 5%-20% SOLUTION 2,000 ML IVC SCH (17:00)
[2020-02-27] MEDS: Mirtazapine 15 MG TABLET PO SCH (21:01)
[2020-02-28] MEDS: Furosemide 40 MG/4 ML VIAL IVP SCH ×2 (00:24→08:22)
[2020-02-28] MEDS: Insulin LISPRO 300 UNITS/3 ML VIAL SUBQ SCH ×7 (00:24→23:40)
[2020-02-28 02:38] LABS: Hematocrit 27.6 % (35.3-44.9); Hemoglobin 8.4 g/dL (11.5-15.4); Mean Corpuscular HGB Conc 30.4 g/dL (31.6-35.5); Mean Corpuscular Volume 98.6 fL (83.0-100.0); Mean Platelet Volume 9.9 fL (9.4-12.4); Nucleated Red Blood Cells 0.2 /100 WBC (0); Platelet Count 339 K/mcL (140-400); Red Cell Distribution Width 19.4 % (11.5-14.5); White Blood Count 12.8 K/mcL (4.3-11.1)
[2020-02-28 03:01] LABS: BUN/Creatinine Ratio 57 (6-26); Blood Urea Nitrogen 60 mg/dL (8-23); Calcium 9.9 mg/dL (8.6-10.3); Carbon Dioxide 26 mEq/L (23-29); Chloride 104 mEq/L (98-107); Glucose 121 mg/dL (70-105); Osmolality,Calculated 312 (280-300); Phosphorous 3.5 mg/dL (2.7-4.5); Potassium 3.4 mEq/L (3.5-5.1); Sodium 142 mEq/L (136-145); eGFR For African Americans > 60 (> 60); eGFR For Non-African Americans 53 (> 60)
[2020-02-28 03:57] LABS: Anisocytosis 1+ (Not Present); Eosinophils # 1.3 K/mcL (0.0-0.6); Lymphocytes # 1.8 K/mcL (0.6-4.6); Monocytes # 0.8 K/mcL (0.0-1.3); Reactive Lymphocytes Present (Not Present); Toxic Granulation Present (Not Present)
[2020-02-28 03:58] LABS: Platelet Estimate Normal (Normal)
[2020-02-28] MEDS: Spironolactone 25 MG TABLET PO SCH ×2 (08:21→20:45)
[2020-02-28] MEDS: Metoprolol XL (24 HR) Succ 25 MG TAB.ER.24H PO SCH (08:21)
[2020-02-28] MEDS: *HR* Amiodarone 200 MG TABLET PO SCH ×2 (08:22→20:45)
[2020-02-28] MEDS: Doxycycline 100 MG CAPSULE PO SCH (08:22)
[2020-02-28] MEDS: metroNIDAZOLE 500 MG TABLET PO SCH ×3 (08:22→20:45)
[2020-02-28] MEDS: Cefepime HCl 2,000 MG in Water for inj. (sterile) 20 ML IVP SCH ×2 (08:23→20:45)
[2020-02-28] MEDS: Heparin 25,000UNIT/250ML 1/2NS 25,000 UNIT/250 ML IV.SOLN IVC SCH ×2 (08:23→20:46)
[2020-02-28] MEDS: Micafungin 100 MG in 0.9 % Sodium Chloride Mini Bag 100 ML IVPB SCH (08:24)
[2020-02-28] MEDS: Nystatin POWDER 30 GM BOTTLE TP SCH ×3 (08:24→20:46)
[2020-02-28] MEDS: Furosemide 40 MG TABLET PO SCH (16:57)
[2020-02-28] MEDS: Mirtazapine 15 MG TABLET PO SCH (20:45)
[2020-02-29 03:16] LABS: Hematocrit 28.4 % (35.3-44.9); Hemoglobin 8.6 g/dL (11.5-15.4); Mean Corpuscular HGB Conc 30.3 g/dL (31.6-35.5); Mean Corpuscular Hemoglobin 29.3 pg (28.0-33.3); Mean Corpuscular Volume 96.6 fL (83.0-100.0); Mean Platelet Volume 9.7 fL (9.4-12.4); Nucleated Red Blood Cells 0.1 /100 WBC (0); Platelet Count 384 K/mcL (140-400); Red Blood Count 2.94 M/mcL (3.82-4.97); Red Cell Distribution Width 19.6 % (11.5-14.5); White Blood Count 14.9 K/mcL (4.3-11.1)
[2020-02-29 03:42] LABS: Eosinophils # 0.3 K/mcL (0.0-0.6); Lymphocytes # 1.8 K/mcL (0.6-4.6); Monocytes # 0.9 K/mcL (0.0-1.3); Neutrophils # 11.3 K/mcL (1.6-8.9); Platelet Estimate Normal (Normal); Polychromasia 1+ (Not Present); Reactive Lymphocytes Present (Not Present); Toxic Granulation Present (Not Present)
[2020-02-29 03:43] LABS: Anisocytosis 1+ (Not Present)
[2020-02-29] MEDS: Insulin LISPRO 300 UNITS/3 ML VIAL SUBQ SCH ×5 (04:03→21:06)
[2020-02-29] MEDS: Micafungin 100 MG in 0.9 % Sodium Chloride Mini Bag 100 ML IVPB SCH (09:31)
[2020-02-29] MEDS: Cefepime HCl 2,000 MG in Water for inj. (sterile) 20 ML IVP SCH ×2 (09:31→21:04)
[2020-02-29] MEDS: Heparin 25,000UNIT/250ML 1/2NS 25,000 UNIT/250 ML IV.SOLN IVC SCH (09:31)
[2020-02-29] MEDS: *HR* Amiodarone 200 MG TABLET PO SCH ×2 (09:32→21:02)
[2020-02-29] MEDS: Spironolactone 25 MG TABLET PO SCH ×2 (09:32→14:38)
[2020-02-29] MEDS: polyethylene glycoL 3350 17 GM POWD.PACK PO SCH (09:32)
[2020-02-29] MEDS: Furosemide 40 MG TABLET PO SCH ×2 (09:32→14:37)
[2020-02-29] MEDS: Metoprolol XL (24 HR) Succ 25 MG TAB.ER.24H PO SCH (09:32)
[2020-02-29] MEDS: metroNIDAZOLE 500 MG TABLET PO SCH ×3 (09:32→21:04)
[2020-02-29] MEDS: Nystatin POWDER 30 GM BOTTLE TP SCH ×3 (09:32→21:05)
[2020-02-29] MEDS ORDERED: D5% in Water 1,000 ML IVC PRN (12:54)
[2020-02-29] MEDS ORDERED: Dextrose Gel 15 GM/37.5 ML TUBE PO PRN ×2 (12:54)
[2020-02-29] MEDS ORDERED: *HR* Dextrose 50 % in Water (Vial) 50 ML VIAL IVP PRN (12:54)
[2020-02-29] MEDS: Lactobacillus 1 EACH CAP.SPRINK PO SCH ×4 (12:59→21:10)
[2020-02-29 13:29] LABS: Calcium 10.6 mg/dL (8.6-10.3); Potassium 3.8 mEq/L (3.5-5.1)
[2020-02-29 15:00] LABS: INR 1.6; Prothrombin Time 18.2 Seconds (9.4-12.1)
[2020-02-29 15:02] LABS: Activated Partial Thrombo Time 86.4 Seconds (26.0-36.0)
[2020-02-29] MEDS: Mirtazapine 15 MG TABLET PO SCH (21:06)
[2020-03-01 06:11] LABS: Hemoglobin 8.6 g/dL (11.5-15.4); Mean Corpuscular HGB Conc 29.7 g/dL (31.6-35.5); Mean Corpuscular Hemoglobin 29.5 pg (28.0-33.3); Mean Corpuscular Volume 99.3 fL (83.0-100.0); Mean Platelet Volume 10.1 fL (9.4-12.4); Platelet Count 426 K/mcL (140-400); Red Blood Count 2.92 M/mcL (3.82-4.97); Red Cell Distribution Width 19.9 % (11.5-14.5)
[2020-03-01 06:29] LABS: Magnesium 2.1 mg/dL (1.6-2.6); Potassium 3.8 mEq/L (3.5-5.1)
[2020-03-01 07:19] LABS: Anisocytosis 1+ (Not Present); Lymphocytes # 2.5 K/mcL (0.6-4.6); Monocytes # 1.1 K/mcL (0.0-1.3); Neutrophils # 10.4 K/mcL (1.6-8.9); Reactive Lymphocytes Present (Not Present); Smudge Cells Present (Not Present); Toxic Granulation Present (Not Present)
[2020-03-01 07:20] LABS: Polychromasia 1+ (Not Present)
[2020-03-01] MEDS: Insulin LISPRO 300 UNITS/3 ML VIAL SUBQ SCH ×4 (08:42→21:33)
[2020-03-01] MEDS: Micafungin 100 MG in 0.9 % Sodium Chloride Mini Bag 100 ML IVPB SCH (09:05)
[2020-03-01] MEDS: metroNIDAZOLE 500 MG TABLET PO SCH ×3 (09:05→21:31)
[2020-03-01] MEDS: Lactobacillus 1 EACH CAP.SPRINK PO SCH ×2 (09:05→21:31)
[2020-03-01] MEDS: Metoprolol XL (24 HR) Succ 25 MG TAB.ER.24H PO SCH (09:05)
[2020-03-01] MEDS: polyethylene glycoL 3350 17 GM POWD.PACK PO SCH (09:05)
[2020-03-01] MEDS: Cefepime HCl 2,000 MG in Water for inj. (sterile) 20 ML IVP SCH ×2 (09:06→21:30)
[2020-03-01] MEDS: Nystatin POWDER 30 GM BOTTLE TP SCH ×3 (09:06→21:31)
[2020-03-01] MEDS: *HR* Amiodarone 200 MG TABLET PO SCH ×2 (09:07→21:31)
[2020-03-01] MEDS: Apixaban 5 MG TABLET PO SCH (21:31)
[2020-03-01] MEDS: Mirtazapine 15 MG TABLET PO SCH (21:31)
[2020-03-02 04:14] LABS: Hematocrit 28.7 % (35.3-44.9); Hemoglobin 8.4 g/dL (11.5-15.4); Mean Corpuscular HGB Conc 29.3 g/dL (31.6-35.5); Mean Corpuscular Hemoglobin 29.2 pg (28.0-33.3); Mean Corpuscular Volume 99.7 fL (83.0-100.0); Mean Platelet Volume 9.9 fL (9.4-12.4); Monocytes # 1.6 K/mcL (0.0-1.3); Nucleated Red Blood Cells 0.2 /100 WBC (0); Platelet Count 428 K/mcL (140-400); Red Blood Count 2.88 M/mcL (3.82-4.97); Red Cell Distribution Width 19.9 % (11.5-14.5); White Blood Count 13.1 K/mcL (4.3-11.1)
[2020-03-02] MEDS ORDERED: Acetaminophen 325 MG TABLET PO PRN (04:16)
[2020-03-02] MEDS ORDERED: *HR* OxyCODONE Immed Rel 5 MG TABLET PO ONE (04:17)
[2020-03-02 04:29] LABS: Calcium 11.4 mg/dL (8.6-10.3); Potassium 3.8 mEq/L (3.5-5.1)
[2020-03-02 04:43] LABS: Anisocytosis 1+ (Not Present); Lymphocytes # 1.3 K/mcL (0.6-4.6); Platelet Estimate Increased (Normal); Polychromasia 1+ (Not Present)
[2020-03-02 04:44] LABS: Toxic Vacuolation Present (Not Present)
[2020-03-02] MEDS: Insulin LISPRO 300 UNITS/3 ML VIAL SUBQ SCH ×4 (08:32→21:00)
[2020-03-02] MEDS: Metoprolol XL (24 HR) Succ 25 MG TAB.ER.24H PO SCH (08:37)
[2020-03-02] MEDS: Lactobacillus 1 EACH CAP.SPRINK PO SCH ×2 (08:37→20:49)
[2020-03-02] MEDS: *HR* Amiodarone 200 MG TABLET PO SCH ×2 (08:37→20:49)
[2020-03-02] MEDS: metroNIDAZOLE 500 MG TABLET PO SCH ×3 (08:37→20:50)
[2020-03-02] MEDS: Apixaban 5 MG TABLET PO SCH ×2 (08:37→20:49)
[2020-03-02] MEDS: Micafungin 100 MG in 0.9 % Sodium Chloride Mini Bag 100 ML IVPB SCH (08:38)
[2020-03-02] MEDS: polyethylene glycoL 3350 17 GM POWD.PACK PO SCH (08:38)
[2020-03-02] MEDS: Cefepime HCl 2,000 MG in Water for inj. (sterile) 20 ML IVP SCH ×2 (08:39→20:48)
[2020-03-02] MEDS: Nystatin POWDER 30 GM BOTTLE TP SCH ×3 (08:39→21:11)
[2020-03-02] MEDS: *HR* LORazepam 2 MG/ML VIAL IVP PRN (11:28)
[2020-03-02] MEDS: Albumin 25% 25gram/100mL 25 GM/100 ML IV.SOLN IVPB SCH (17:28)
[2020-03-02] MEDS: Mirtazapine 15 MG TABLET PO SCH (20:49)
[2020-03-03] MEDS: Albumin 25% 25gram/100mL 25 GM/100 ML IV.SOLN IVPB SCH ×3 (00:40→16:33)
[2020-03-03 05:53] LABS: Hematocrit 27.1 % (35.3-44.9); Hemoglobin 7.9 g/dL (11.5-15.4); Mean Corpuscular HGB Conc 29.2 g/dL (31.6-35.5); Mean Corpuscular Hemoglobin 29.2 pg (28.0-33.3); Mean Platelet Volume 9.7 fL (9.4-12.4); Nucleated Red Blood Cells 0.2 /100 WBC (0); Platelet Count 399 K/mcL (140-400); Red Blood Count 2.71 M/mcL (3.82-4.97); White Blood Count 11.3 K/mcL (4.3-11.1)
[2020-03-03 06:13] LABS: Calcium 11.6 mg/dL (8.6-10.3); Potassium 3.7 mEq/L (3.5-5.1)
[2020-03-03 06:22] LABS: Lymphocytes # 1.1 K/mcL (0.6-4.6); Monocytes # 0.5 K/mcL (0.0-1.3); Neutrophils # 8.8 K/mcL (1.6-8.9)
[2020-03-03 06:23] LABS: Toxic Granulation Present (Not Present)
[2020-03-03] MEDS: Insulin LISPRO 300 UNITS/3 ML VIAL SUBQ SCH ×4 (07:57→21:16)
[2020-03-03] MEDS: Apixaban 5 MG TABLET PO SCH ×2 (08:00→21:14)
[2020-03-03] MEDS: Lactobacillus 1 EACH CAP.SPRINK PO SCH ×2 (08:00→21:16)
[2020-03-03] MEDS: metroNIDAZOLE 500 MG TABLET PO SCH ×3 (08:00→21:14)
[2020-03-03] MEDS: *HR* Amiodarone 200 MG TABLET PO SCH ×2 (08:00→21:14)
[2020-03-03] MEDS: Metoprolol XL (24 HR) Succ 25 MG TAB.ER.24H PO SCH (08:01)
[2020-03-03] MEDS: Micafungin 100 MG in 0.9 % Sodium Chloride Mini Bag 100 ML IVPB SCH (08:01)
[2020-03-03] MEDS: Cefepime HCl 2,000 MG in Water for inj. (sterile) 20 ML IVP SCH (08:02)
[2020-03-03] MEDS: Nystatin POWDER 30 GM BOTTLE TP SCH ×3 (08:03→21:16)
[2020-03-03] MEDS: polyethylene glycoL 3350 17 GM POWD.PACK PO SCH (08:03)
[2020-03-03] MEDS: 0.9 % Sodium Chloride 1,000 ML IVC SCH (11:36)
[2020-03-03] MEDS: *HR* LORazepam 2 MG/ML VIAL IVP PRN (16:46)
[2020-03-03] MEDS: Mirtazapine 15 MG TABLET PO SCH (21:14)
[2020-03-03] MEDS: *HR* OxyCODONE/APAP 5/325 TABLET PO PRN (21:14)
[2020-03-03] MEDS: Cefepime HCl 1,000 MG in Water for inj. (sterile) 10 ML IVP SCH (21:15)
[2020-03-04] MEDS: Albumin 25% 25gram/100mL 25 GM/100 ML IV.SOLN IVPB SCH ×3 (00:13→14:54)
[2020-03-04] MEDS: 0.9 % Sodium Chloride 1,000 ML IVC SCH ×2 (00:17→11:21)
[2020-03-04] MEDS: *HR* LORazepam 2 MG/ML VIAL IVP PRN ×3 (01:22→21:45)
[2020-03-04] MEDS: *HR* OxyCODONE/APAP 5/325 TABLET PO PRN ×2 (04:27→10:57)
[2020-03-04 06:19] LABS: Basophils % 0.4 %; Eosinophils # 0.3 K/mcL (0.0-0.6); Hematocrit 26.9 % (35.3-44.9); Hemoglobin 7.8 g/dL (11.5-15.4); Immature Granulocytes % 4.7 % (0-4); Lymphocytes # 1.3 K/mcL (0.6-4.6); Lymphocytes % 14.7 %; Mean Corpuscular Hemoglobin 29.8 pg (28.0-33.3); Mean Corpuscular Volume 102.7 fL (83.0-100.0); Mean Platelet Volume 9.7 fL (9.4-12.4); Monocytes # 0.9 K/mcL (0.0-1.3); Monocytes % 10.2 %; Neutrophils # 6.1 K/mcL (1.6-8.9); Platelet Count 370 K/mcL (140-400); Red Blood Count 2.62 M/mcL (3.82-4.97); Red Cell Distribution Width 19.9 % (11.5-14.5); White Blood Count 9.1 K/mcL (4.3-11.1)
[2020-03-04 06:35] LABS: Calcium 11.5 mg/dL (8.6-10.3); Magnesium 1.7 mg/dL (1.6-2.6); Potassium 3.2 mEq/L (3.5-5.1)
[2020-03-04] MEDS: Insulin LISPRO 300 UNITS/3 ML VIAL SUBQ SCH ×4 (08:09→19:48)
[2020-03-04] MEDS: Cefepime HCl 1,000 MG in Water for inj. (sterile) 10 ML IVP SCH ×2 (08:29→19:48)
[2020-03-04] MEDS: Apixaban 5 MG TABLET PO SCH ×2 (08:29→19:47)
[2020-03-04] MEDS: polyethylene glycoL 3350 17 GM POWD.PACK PO SCH (08:29)
[2020-03-04] MEDS: *HR* Amiodarone 200 MG TABLET PO SCH ×2 (08:29→19:47)
[2020-03-04] MEDS: Lactobacillus 1 EACH CAP.SPRINK PO SCH ×2 (08:30→19:47)
[2020-03-04] MEDS: metroNIDAZOLE 500 MG TABLET PO SCH ×3 (08:30→19:47)
[2020-03-04] MEDS: Metoprolol XL (24 HR) Succ 25 MG TAB.ER.24H PO SCH (08:30)
[2020-03-04] MEDS: Micafungin 100 MG in 0.9 % Sodium Chloride Mini Bag 100 ML IVPB SCH (08:30)
[2020-03-04] MEDS: Nystatin POWDER 30 GM BOTTLE TP SCH ×3 (08:32→19:48)
[2020-03-04] MEDS: *HR* OxyCODONE/APAP 7.5/325 TABLET PO PRN ×2 (15:46→21:45)
[2020-03-04] MEDS: Mirtazapine 15 MG TABLET PO SCH (19:47)
[2020-03-04] MEDS ORDERED: Naloxone 0.4 MG/ML INJ IVP PRN (21:06)
[2020-03-05] MEDS: *HR* OxyCODONE/APAP 5/325 TABLET PO PRN ×2 (00:35→12:29)
[2020-03-05] MEDS: 0.9 % Sodium Chloride 1,000 ML IVC SCH (00:35)
[2020-03-05] MEDS: Albumin 25% 25gram/100mL 25 GM/100 ML IV.SOLN IVPB SCH (00:35)
[2020-03-05] MEDS: *HR* OxyCODONE/APAP 7.5/325 TABLET PO PRN ×4 (03:41→22:20)
[2020-03-05] MEDS: *HR* LORazepam 2 MG/ML VIAL IVP PRN ×4 (03:41→22:21)
[2020-03-05 03:45] LABS: Basophils % 0.4 %; Eosinophils # 0.3 K/mcL (0.0-0.6); Eosinophils % 3.4 %; Hematocrit 26.2 % (35.3-44.9); Hemoglobin 7.6 g/dL (11.5-15.4); Immature Granulocytes % 4.4 % (0-4); Lymphocytes # 1.1 K/mcL (0.6-4.6); Lymphocytes % 12.3 %; Mean Corpuscular Volume 103.6 fL (83.0-100.0); Mean Platelet Volume 9.7 fL (9.4-12.4); Monocytes # 0.9 K/mcL (0.0-1.3); Monocytes % 9.4 %; Neutrophils # 6.3 K/mcL (1.6-8.9); Platelet Count 347 K/mcL (140-400); Red Blood Count 2.53 M/mcL (3.82-4.97); Red Cell Distribution Width 20.1 % (11.5-14.5); Segmented Neutrophils % 70.1 %
[2020-03-05 04:04] LABS: Calcium 11.3 mg/dL (8.6-10.3); Potassium 3.5 mEq/L (3.5-5.1)
[2020-03-05] MEDS: Apixaban 5 MG TABLET PO SCH ×2 (08:42→22:19)
[2020-03-05] MEDS: Lactobacillus 1 EACH CAP.SPRINK PO SCH ×2 (08:42→22:19)
[2020-03-05] MEDS: Ondansetron 4 MG/2 ML VIAL IVP PRN ×2 (08:42→16:11)
[2020-03-05] MEDS: metroNIDAZOLE 500 MG TABLET PO SCH ×3 (08:43→22:20)
[2020-03-05] MEDS: Metoprolol XL (24 HR) Succ 25 MG TAB.ER.24H PO SCH (08:43)
[2020-03-05] MEDS: *HR* Amiodarone 200 MG TABLET PO SCH ×2 (08:43→22:20)
[2020-03-05] MEDS: Cefepime HCl 1,000 MG in Water for inj. (sterile) 10 ML IVP SCH ×2 (08:43→22:00)
[2020-03-05] MEDS: polyethylene glycoL 3350 17 GM POWD.PACK PO SCH (08:44)
[2020-03-05] MEDS: Ringers Solution, Lactated 1,000 ML IVC SCH ×2 (08:45→22:19)
[2020-03-05] MEDS: Insulin LISPRO 300 UNITS/3 ML VIAL SUBQ SCH ×4 (08:45→22:21)
[2020-03-05] MEDS: Micafungin 100 MG in 0.9 % Sodium Chloride Mini Bag 100 ML IVPB SCH (08:45)
[2020-03-05] MEDS: Nystatin POWDER 30 GM BOTTLE TP SCH ×2 (08:46→16:13)
[2020-03-05 11:12] LABS: Lambda Qnt Free Light Chains 131.96 mg/L (5.71-26.30)
[2020-03-05 11:57] LABS: Kappa Qnt Free Light Chains 121.57 mg/L (3.30-19.40)
[2020-03-05] MEDS: Acetaminophen 325 MG TABLET PO PRN ×2 (12:29→22:20)
[2020-03-05] MEDS: Mirtazapine 15 MG TABLET PO SCH (22:19)
[2020-03-06] MEDS: Ondansetron 4 MG/2 ML VIAL IVP PRN (01:06)
[2020-03-06] MEDS: *HR* OxyCODONE/APAP 5/325 TABLET PO PRN (01:06)
[2020-03-06 02:14] LABS: Lymphocytes % 12.5 %; Red Cell Distribution Width 20.5 % (11.5-14.5)
[2020-03-06 02:16] LABS: Basophils # 0.1 K/mcL (0.0-0.2); Basophils % 0.6 %; Eosinophils # 0.4 K/mcL (0.0-0.6); Eosinophils % 3.8 %; Hematocrit 27.5 % (35.3-44.9); Hemoglobin 7.9 g/dL (11.5-15.4); Lymphocytes # 1.2 K/mcL (0.6-4.6); Mean Corpuscular HGB Conc 28.7 g/dL (31.6-35.5); Mean Corpuscular Volume 104.6 fL (83.0-100.0); Mean Platelet Volume 10.2 fL (9.4-12.4); Monocytes # 0.9 K/mcL (0.0-1.3); Monocytes % 8.9 %; Platelet Count 349 K/mcL (140-400); Red Blood Count 2.63 M/mcL (3.82-4.97); Segmented Neutrophils % 70.2 %; White Blood Count 9.9 K/mcL (4.3-11.1)
[2020-03-06 02:29] LABS: Platelet Estimate Normal (Normal)
[2020-03-06 02:30] LABS: Anisocytosis 2+ (Not Present); Macrocytosis Present (Not Present)
[2020-03-06 02:34] LABS: Calcium 11.1 mg/dL (8.6-10.3); Potassium 3.7 mEq/L (3.5-5.1)
[2020-03-06] MEDS: Nystatin POWDER 30 GM BOTTLE TP SCH ×4 (03:06→21:18)
[2020-03-06] MEDS: *HR* LORazepam 2 MG/ML VIAL IVP PRN (04:15)
[2020-03-06] MEDS: *HR* OxyCODONE/APAP 7.5/325 TABLET PO PRN ×2 (04:16→10:13)
[2020-03-06] MEDS: Acetaminophen 325 MG TABLET PO PRN (04:16)
[2020-03-06] MEDS: Ringers Solution, Lactated 1,000 ML IVC SCH (04:17)
[2020-03-06] MEDS: Insulin LISPRO 300 UNITS/3 ML VIAL SUBQ SCH ×4 (08:23→21:26)
[2020-03-06] MEDS: metroNIDAZOLE 500 MG TABLET PO SCH ×3 (08:34→21:18)
[2020-03-06] MEDS: *HR* Amiodarone 200 MG TABLET PO SCH ×2 (08:34→21:17)
[2020-03-06] MEDS: Lactobacillus 1 EACH CAP.SPRINK PO SCH ×2 (08:35→21:17)
[2020-03-06] MEDS: Apixaban 5 MG TABLET PO SCH ×2 (08:35→21:17)
[2020-03-06] MEDS: Metoprolol XL (24 HR) Succ 25 MG TAB.ER.24H PO SCH (08:35)
[2020-03-06] MEDS: Cefepime HCl 1,000 MG in Water for inj. (sterile) 10 ML IVP SCH ×2 (08:36→21:16)
[2020-03-06] MEDS: polyethylene glycoL 3350 17 GM POWD.PACK PO SCH (08:36)
[2020-03-06] MEDS: *HR* OxyCODONE/APAP 10/325 TABLET PO PRN ×2 (15:58→22:49)
[2020-03-06] MEDS: Mirtazapine 15 MG TABLET PO SCH (21:18)
[2020-03-07] MEDS: *HR* LORazepam 2 MG/ML VIAL IVP PRN (01:50)
[2020-03-07 03:43] LABS: Potassium 3.6 mEq/L (3.5-5.1)
[2020-03-07] MEDS: Insulin LISPRO 300 UNITS/3 ML VIAL SUBQ SCH ×4 (08:04→20:36)
[2020-03-07] MEDS: *HR* Amiodarone 200 MG TABLET PO SCH ×2 (08:14→20:53)
[2020-03-07] MEDS: Apixaban 5 MG TABLET PO SCH ×2 (08:14→20:53)
[2020-03-07] MEDS: Metoprolol XL (24 HR) Succ 25 MG TAB.ER.24H PO SCH (08:14)
[2020-03-07] MEDS: *HR* OxyCODONE/APAP 10/325 TABLET PO PRN ×3 (08:14→22:36)
[2020-03-07] MEDS: metroNIDAZOLE 500 MG TABLET PO SCH ×3 (08:14→20:52)
[2020-03-07] MEDS: Cefepime HCl 1,000 MG in Water for inj. (sterile) 10 ML IVP SCH ×2 (08:15→20:52)
[2020-03-07] MEDS: polyethylene glycoL 3350 17 GM POWD.PACK PO SCH (08:15)
[2020-03-07] MEDS: Lactobacillus 1 EACH CAP.SPRINK PO SCH ×2 (08:15→20:52)
[2020-03-07] MEDS: Nystatin POWDER 30 GM BOTTLE TP SCH ×3 (08:29→20:53)
[2020-03-07 13:29] LABS: Immunoglobulin A 386 mg/dL (68-408); Immunoglobulin G 661 mg/dL (768-1632); Immunoglobulin M 141 mg/dL (35-263)
[2020-03-07 15:21] LABS: Alpha 2 Globulin (PEP) 0.72 g/dL (0.48-1.05); Beta Globulin (PEP) 0.43 g/dL (0.48-1.10)
[2020-03-07] MEDS ORDERED: carvediloL 6.25 MG TABLET PO SCH (17:00)
[2020-03-07] MEDS: Mirtazapine 15 MG TABLET PO SCH (20:52)
[2020-03-08] MEDS: *HR* LORazepam 2 MG/ML VIAL IVP PRN ×2 (01:38→21:31)
[2020-03-08 03:22] LABS: Hematocrit 25.5 % (35.3-44.9); Hemoglobin 7.4 g/dL (11.5-15.4); Mean Corpuscular Hemoglobin 30.2 pg (28.0-33.3); Mean Corpuscular Volume 104.1 fL (83.0-100.0); Mean Platelet Volume 10.1 fL (9.4-12.4); Platelet Count 292 K/mcL (140-400); Red Blood Count 2.45 M/mcL (3.82-4.97); Red Cell Distribution Width 20.1 % (11.5-14.5); White Blood Count 8.5 K/mcL (4.3-11.1)
[2020-03-08 03:44] LABS: Calcium 10.5 mg/dL (8.6-10.3); Magnesium 1.3 mg/dL (1.6-2.6); Potassium 3.6 mEq/L (3.5-5.1)
[2020-03-08 08:10] LABS: Thyroid Stimulating Hormone 3.167 mcIU/mL (0.340-5.600)
[2020-03-08] MEDS: Insulin LISPRO 300 UNITS/3 ML VIAL SUBQ SCH ×4 (08:15→21:33)
[2020-03-08] MEDS: *HR* OxyCODONE/APAP 10/325 TABLET PO PRN ×2 (08:24→21:31)
[2020-03-08] MEDS: Apixaban 5 MG TABLET PO SCH ×2 (08:25→21:31)
[2020-03-08] MEDS: metroNIDAZOLE 500 MG TABLET PO SCH (08:25)
[2020-03-08] MEDS: *HR* Amiodarone 200 MG TABLET PO SCH ×2 (08:25→21:31)
[2020-03-08] MEDS: Lactobacillus 1 EACH CAP.SPRINK PO SCH ×2 (08:25→21:30)
[2020-03-08] MEDS: polyethylene glycoL 3350 17 GM POWD.PACK PO SCH (08:25)
[2020-03-08] MEDS: carvediloL 25 MG TABLET PO SCH ×2 (08:25→16:39)
[2020-03-08] MEDS: Cefepime HCl 1,000 MG in Water for inj. (sterile) 10 ML IVP SCH (08:25)
[2020-03-08 08:54] LABS: IFE Reflexed IFE Done
[2020-03-08] MEDS: Nystatin POWDER 30 GM BOTTLE TP SCH ×3 (09:10→21:33)
[2020-03-08] MEDS: Mirtazapine 15 MG TABLET PO SCH (21:30)
[2020-03-08] MEDS: Ondansetron 4 MG/2 ML VIAL IVP PRN (21:30)
[2020-03-08] MEDS: Acetaminophen 325 MG TABLET PO PRN (21:31)
[2020-03-09 01:39] LABS: Eosinophils % 5.8 %
[2020-03-09 01:40] LABS: Basophils % 0.3 %; Eosinophils # 0.4 K/mcL (0.0-0.6); Hematocrit 24.5 % (35.3-44.9); Hemoglobin 7.2 g/dL (11.5-15.4); Immature Granulocytes % 4.3 % (0-4); Lymphocytes # 1.1 K/mcL (0.6-4.6); Lymphocytes % 14.7 %; Mean Corpuscular HGB Conc 29.4 g/dL (31.6-35.5); Mean Corpuscular Hemoglobin 30.9 pg (28.0-33.3); Mean Corpuscular Volume 105.2 fL (83.0-100.0); Mean Platelet Volume 10.6 fL (9.4-12.4); Monocytes # 0.7 K/mcL (0.0-1.3); Monocytes % 8.8 %; Neutrophils # 4.9 K/mcL (1.6-8.9); Platelet Count 272 K/mcL (140-400); Red Blood Count 2.33 M/mcL (3.82-4.97); Red Cell Distribution Width 19.8 % (11.5-14.5); Segmented Neutrophils % 66.1 %; White Blood Count 7.4 K/mcL (4.3-11.1)
[2020-03-09 01:56] LABS: Potassium 3.6 mEq/L (3.5-5.1)
[2020-03-09 02:08] LABS: Anisocytosis 1+ (Not Present); Platelet Estimate Normal (Normal); Poikilocytosis 1+ (Not Present); Toxic Granulation Present (Not Present)
[2020-03-09] MEDS: *HR* LORazepam 2 MG/ML VIAL IVP PRN (04:27)
[2020-03-09] MEDS: Acetaminophen 325 MG TABLET PO PRN (04:27)
[2020-03-09] MEDS: *HR* OxyCODONE/APAP 10/325 TABLET PO PRN (04:27)
[2020-03-09] MEDS: Lactobacillus 1 EACH CAP.SPRINK PO SCH ×2 (07:56→19:59)
[2020-03-09] MEDS: *HR* Amiodarone 200 MG TABLET PO SCH ×2 (07:56→19:59)
[2020-03-09] MEDS: carvediloL 25 MG TABLET PO SCH ×2 (07:57→18:27)
[2020-03-09] MEDS: Apixaban 5 MG TABLET PO SCH ×2 (07:57→19:59)
[2020-03-09] MEDS: Insulin LISPRO 300 UNITS/3 ML VIAL SUBQ SCH ×4 (09:27→20:00)
[2020-03-09] MEDS: polyethylene glycoL 3350 17 GM POWD.PACK PO SCH (09:31)
[2020-03-09] MEDS: Nystatin POWDER 30 GM BOTTLE TP SCH ×3 (09:31→20:00)
[2020-03-09] MEDS: Mirtazapine 15 MG TABLET PO SCH (19:59)
[2020-03-10 02:13] LABS: Basophils # 0.1 K/mcL (0.0-0.2); Basophils % 0.7 %; Eosinophils # 0.5 K/mcL (0.0-0.6); Eosinophils % 6.5 %; Hematocrit 26.1 % (35.3-44.9); Hemoglobin 7.8 g/dL (11.5-15.4); Immature Granulocytes % 3.9 % (0-4); Lymphocytes # 1.1 K/mcL (0.6-4.6); Lymphocytes % 15.1 %; Mean Corpuscular HGB Conc 29.9 g/dL (31.6-35.5); Mean Corpuscular Hemoglobin 31.3 pg (28.0-33.3); Mean Corpuscular Volume 104.8 fL (83.0-100.0); Mean Platelet Volume 10.6 fL (9.4-12.4); Monocytes # 0.8 K/mcL (0.0-1.3); Monocytes % 10.9 %; Neutrophils # 4.5 K/mcL (1.6-8.9); Platelet Count 289 K/mcL (140-400); Red Blood Count 2.49 M/mcL (3.82-4.97); Red Cell Distribution Width 19.7 % (11.5-14.5); Segmented Neutrophils % 62.9 %; White Blood Count 7.2 K/mcL (4.3-11.1)
[2020-03-10 02:25] LABS: Calcium 10.2 mg/dL (8.6-10.3); Potassium 3.6 mEq/L (3.5-5.1)
[2020-03-10] MEDS: polyethylene glycoL 3350 17 GM POWD.PACK PO SCH (09:38)
[2020-03-10] MEDS: Lactobacillus 1 EACH CAP.SPRINK PO SCH ×2 (09:38→20:47)
[2020-03-10] MEDS: carvediloL 25 MG TABLET PO SCH ×2 (09:38→17:02)
[2020-03-10] MEDS: *HR* Amiodarone 200 MG TABLET PO SCH ×2 (09:38→20:47)
[2020-03-10] MEDS: Apixaban 5 MG TABLET PO SCH ×2 (09:38→20:47)
[2020-03-10] MEDS: Insulin LISPRO 300 UNITS/3 ML VIAL SUBQ SCH ×4 (09:39→20:48)
[2020-03-10] MEDS: Nystatin POWDER 30 GM BOTTLE TP SCH ×3 (09:40→20:48)
[2020-03-10] MEDS: *HR* OxyCODONE/APAP 10/325 TABLET PO PRN (09:50)
[2020-03-10] MEDS: Mirtazapine 15 MG TABLET PO SCH (20:47)
[2020-03-11 04:19] LABS: Hematocrit 25.9 % (35.3-44.9); Hemoglobin 7.7 g/dL (11.5-15.4); Mean Corpuscular HGB Conc 29.7 g/dL (31.6-35.5); Mean Corpuscular Hemoglobin 30.1 pg (28.0-33.3); Mean Corpuscular Volume 101.2 fL (83.0-100.0); Mean Platelet Volume 10.1 fL (9.4-12.4); Platelet Count 279 K/mcL (140-400); Red Blood Count 2.56 M/mcL (3.82-4.97); Red Cell Distribution Width 19.7 % (11.5-14.5); White Blood Count 6.7 K/mcL (4.3-11.1)
[2020-03-11 04:37] LABS: Magnesium 1.2 mg/dL (1.6-2.6); Phosphorous 4.1 mg/dL (2.7-4.5); Potassium 3.3 mEq/L (3.5-5.1)
[2020-03-11] MEDS: Apixaban 5 MG TABLET PO SCH ×2 (08:49→20:23)
[2020-03-11] MEDS: amLODIPine 5 MG TABLET PO SCH (08:50)
[2020-03-11] MEDS: *HR* Amiodarone 200 MG TABLET PO SCH ×2 (08:50→20:23)
[2020-03-11] MEDS: Lactobacillus 1 EACH CAP.SPRINK PO SCH ×2 (08:51→20:23)
[2020-03-11] MEDS: carvediloL 25 MG TABLET PO SCH ×2 (08:51→18:08)
[2020-03-11] MEDS: Insulin LISPRO 300 UNITS/3 ML VIAL SUBQ SCH ×4 (08:53→20:50)
[2020-03-11] MEDS: polyethylene glycoL 3350 17 GM POWD.PACK PO SCH (08:54)
[2020-03-11] MEDS: Nystatin POWDER 30 GM BOTTLE TP SCH ×3 (15:35→20:24)
[2020-03-11] MEDS: Mirtazapine 15 MG TABLET PO SCH (20:23)
[2020-03-11] MEDS: *HR* OxyCODONE/APAP 10/325 TABLET PO PRN (23:18)
[2020-03-12 04:12] LABS: Calcium 9.5 mg/dL (8.6-10.3); Magnesium 2.1 mg/dL (1.6-2.6); Potassium 3.6 mEq/L (3.5-5.1)
[2020-03-12] MEDS: Insulin LISPRO 300 UNITS/3 ML VIAL SUBQ SCH ×4 (08:02→21:17)
[2020-03-12] MEDS: Apixaban 5 MG TABLET PO SCH ×2 (08:07→21:15)
[2020-03-12] MEDS: *HR* Amiodarone 200 MG TABLET PO SCH ×2 (08:07→21:15)
[2020-03-12] MEDS: amLODIPine 5 MG TABLET PO SCH (08:07)
[2020-03-12] MEDS: carvediloL 25 MG TABLET PO SCH ×2 (08:07→16:38)
[2020-03-12] MEDS: Lactobacillus 1 EACH CAP.SPRINK PO SCH ×2 (08:07→21:15)
[2020-03-12] MEDS: polyethylene glycoL 3350 17 GM POWD.PACK PO SCH (08:07)
[2020-03-12] MEDS: Nystatin POWDER 30 GM BOTTLE TP SCH ×3 (08:08→21:16)
[2020-03-12] MEDS: Mirtazapine 15 MG TABLET PO SCH (21:16)
[2020-03-13 01:33] LABS: Adenovirus Not Detected (Not Detect); Bordetella Pertussis Not Detected (Not Detect); Chlamydophila pneumoniae Not Detected (Not Detect); Coronavirus 229E Not Detected (Not Detect); Coronavirus HKU1 Not Detected (Not Detect); Coronavirus NL63 Not Detected (Not Detect); Coronavirus OC43 Not Detected (Not Detect); Human Metapneumovirus Not Detected (Not Detect); Human Rhinovirus/Enterovirus Not Detected (Not Detect); Influenza A Subtype 2009 H1 Not Detected (Not Detect); Influenza B Not Detected (Not Detect); Mycoplasma pneumoniae Not Detected (Not Detect); Parainfluenza Virus 1 Not Detected (Not Detect); Parainfluenza Virus 2 Not Detected (Not Detect); Parainfluenza Virus 3 Not Detected (Not Detect); Parainfluenza Virus 4 Not Detected (Not Detect); Respiratory Syncytial Virus Not Detected (Not Detect); SARS-CoV-2 Not Detected (Not Detect)
[2020-03-13 05:04] LABS: Hematocrit 26.8 % (35.3-44.9); Mean Corpuscular HGB Conc 29.9 g/dL (31.6-35.5); Mean Corpuscular Hemoglobin 30.8 pg (28.0-33.3); Mean Corpuscular Volume 103.1 fL (83.0-100.0); Mean Platelet Volume 10.8 fL (9.4-12.4); Platelet Count 281 K/mcL (140-400); Red Cell Distribution Width 20.5 % (11.5-14.5); White Blood Count 6.6 K/mcL (4.3-11.1)
[2020-03-13 05:23] LABS: Calcium 10.1 mg/dL (8.6-10.3); Potassium 3.3 mEq/L (3.5-5.1)
[2020-03-13] MEDS: Lactobacillus 1 EACH CAP.SPRINK PO SCH (08:28)
[2020-03-13] MEDS: *HR* Amiodarone 200 MG TABLET PO SCH (08:28)
[2020-03-13] MEDS: Apixaban 5 MG TABLET PO SCH (08:28)
[2020-03-13] MEDS: carvediloL 25 MG TABLET PO SCH (08:28)
[2020-03-13] MEDS: polyethylene glycoL 3350 17 GM POWD.PACK PO SCH (08:29)
[2020-03-13] MEDS: amLODIPine 5 MG TABLET PO SCH (08:29)
[2020-03-13] MEDS: Insulin LISPRO 300 UNITS/3 ML VIAL SUBQ SCH ×3 (08:29→16:16)
[2020-03-13] MEDS: Nystatin POWDER 30 GM BOTTLE TP SCH ×2 (08:30→15:00)
[2020-03-13 16:00] VITALS: BP 165/82
== END 2020-03-13 16:59 | DRG 853 ==
LOC: EMEROOARM 16:15 → 3ANU 16:15 → SUATTDRO 18:52 → 3ANU 20:30 → ICNU 02-02 04:53 → SUATTDRO 02-04 10:59 → 3NENU 02-08 00:03 → 2NNU 02-10 19:43 → 3ANU 02-17 16:28 → 2NNU 02-20 11:18 → 2ANU 02-26 19:22
PROVIDERS: ADMIT Student in an Organized Health Care Education/Training Program; ATTEND Internal Medicine